=== PATIENT | female | born 1960 | race Hispanic/Latino ===

== ENCOUNTER 2019-11-11 21:35 | Inpatient (IN) | payer MEDICAID, OTHER ==
[2019-11-11] MEDS ORDERED: ACETAMINOPHEN 325 MG TAB PO PRN (21:54)
[2019-11-11] MEDS ORDERED: SODIUM CHLORIDE 0.9% 1000 ML 1,000 ML IV ONE ×2 (22:09)
[2019-11-11] MEDS: cefTRIAXone/NS 2 GM/100 ML 2 GM/100 ML BAG IV SCH (22:10)
[2019-11-11] MEDS ORDERED: SODIUM CHLORIDE 0.9% 1000 ML 1,000 ML ONE (22:12)
--- NOTE | 2019-11-11 22:21 | Emergency Department Report ---
ED Fever HPI - General Chief Complaint: Fever Stated Complaint: PAIN PUI?: Yes Time Seen by Provider: 11/11/19 21:53 Source: patient Exam Limitations: no limitations - History of Present Illness Initial Comments: CC: "I just didn't feel good." HPI: This is a 59 yo female with history of polysubstance abuse including IV drug use presemts with fever and malaise for several weeks. She denies headache, sore throat, chest pain, back pain and abdominal pain. No shortness of breath. She arrived via EMS with high fever and rapid heart rate. Gradual onset of symptoms. No precipitating or alleviating factors. She denies any pain or injury. When asked specifically what type of drugs she uses, she says "everything". 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 Associated Symptoms: other (foot ulcer, malaise) ED Review of Systems ROS: Stated complaint: PAIN Other details as noted in HPI Comment: All other systems reviewed and negative Constitutional: fever, malaise Respiratory: denies: cough, shortness of breath Gastrointestinal: denies: abdominal pain, nausea, vomiting Skin: rash, lesions ED Past Medical Hx - Past Medical History Previous Medical History?: No - Social History Smoking Status: Current Every Day Smoker ED Physical Exam - General Limitations: Other General appearance: alert, in no apparent distress, other (appears frail, chronically) - Head Head exam: Present: atraumatic, normocephalic - Eye Eye exam: Present: normal appearance - ENT ENT exam: Present: mucous membranes dry, other (no oropharyngeal lesions) - Neck Neck exam: Present: normal inspection, full ROM. Absent: tenderness, meningismus - Respiratory Respiratory exam: Present: normal lung sounds bilaterally. Absent: respiratory distress, wheezes, rales, rhonchi - Cardiovascular Cardiovascular Exam: Present: normal rhythm, tachycardia, normal heart sounds. Absent: systolic murmur, diastolic murmur, rubs, gallop - GI/Abdominal GI/Abdominal exam: Present: soft. Absent: distended, tenderness, guarding, rebound - Extremities Exam Extremities exam: Present: other (healed 2 cm foot ulcer at first MTP) - Neurological Exam Neurological exam: Present: alert, oriented X3 - Psychiatric Psychiatric exam: Present: normal affect, normal mood - Skin Skin exam: Present: warm, dry, pallor, ecchymosis (multiple ecchymosis lower legs). Absent: rash ED Course Vital Signs 11/11/19 11/11/19 11/12/19 21:48 21:57 00:16 Temperature 103 F H 103 F H Pulse Rate 133 H 115 H Respiratory 24 24 Rate Blood Pressure Blood Pressure 112/55 100/55 [Right] O2 Sat by Pulse 91 98 98 Oximetry 11/12/19 00:24 Temperature 103 F H Pulse Rate 115 H Respiratory 24 Rate Blood Pressure 105/55 Blood Pressure [Right] O2 Sat by Pulse 98 Oximetry ED Medical Decision Making - Lab Data Result diagrams: 11/11/19 22:46 11/11/19 22:46 - Radiology Data Radiology results: report reviewed Chest radiograph: No acute findings - Medical Decision Making Ms. Kerr presents with fever. Sirs on presentation. Sepsis protocol initiated. Work-up reveals pancytopenia. Differential diagnosis include: COVID-19, aplastic anemia, lymphoma, MDS, HIV, hepatitis, vitamin deficiency With elevated lactic acidosis, bacteremia/sepsis is a consideration. Urinalysis chest radiograph without obvious infection. UDS positive for amphetamine and opiates. Due to chronicity, I suspect patient has hematological disorder versus viral infection. She states that she has had fever malaise for several weeks. Admitted to the hospitalist service for further treatment and evaluation Critical care attestation.: If time is entered above; I have spent that time in minutes in the direct care of this critically ill patient, excluding procedure time. ED Disposition Clinical Impression: SIRS (systemic inflammatory response syndrome), Pancytopenia, Polysubstance abuse Disposition: OP ADMIT IP TO THIS HOSP Is pt being admited?: Yes Does the pt Need Aspirin: No Condition: Stable
--- NOTE | 2019-11-11 22:27 | XRay Report ---
CHEST 1 VIEW INDICATION / CLINICAL INFORMATION: high fever body aches. COMPARISON: None available. FINDINGS: SUPPORT DEVICES: None. HEART / MEDIASTINUM: Cardiac silhouette size is normal. Pacemaker is present. LUNGS / PLEURA: Calcified pleural plaque is projecting within the left midlung. The lungs are hyperin flated but I do not see any acute pulmonary or pleural disease. No pneumothorax. ADDITIONAL FINDINGS: No significant additional findings. IMPRESSION: 1. No acute pulmonary or pleural disease. Signer Name: Maricarmen Walters MD Signed: 11/11/2019 10:23 PM Workstation Name: [id number]
[2019-11-11] MEDS ORDERED: SODIUM CHLORIDE 0.9% 1000 ML IV SOLN IV ONE (22:47)
[2019-11-11] MEDS: AZITHROMYCIN 500 MG in SODIUM CHLORIDE 0.9% 250ML 250 ML IV SCH (22:47)
--- NOTE | 2019-11-11 22:58 | XRay Report ---
EXAMINATION: Right foot radiograph, 2 views CLINICAL INFORMATION: Foot ulcers at the base of the first digit COMPARISON: None. FINDINGS: Evaluation is limited due to limited patient positioning. No acute bony fracture or destruc tive bony change is identified. There is probable mild soft tissue swelling of the first digit. No so ft tissue gas can be clearly identified. The bony structures appear diffusely demineralized. Signer Name: Kimmy Mcdaniels MD Signed: 11/11/2019 10:54 PM Workstation Name: [id number]
[2019-11-11 23:28] LABS: Basophils % (Auto) 0.2 % (0.0-1.8); Hematocrit 20.3 % (30.3-42.9); Hemoglobin 6.8 gm/dl (10.1-14.3); Lymphocytes # (Auto) 0.2 K/mm3 (1.2-5.4); Lymphocytes % (Auto) 4.3 % (13.4-35.0); Mean Corpuscular HGB Conc 33 % (30-34); Mean Corpuscular Volume 81 fl (79-97); Monocytes # (Auto) 0.2 K/mm3 (0.0-0.8); Red Cell Distribution Width 16.9 % (13.2-15.2)
[2019-11-11 23:29] LABS: Platelet Count 52 K/mm3 (140-440)
[2019-11-11 23:31] LABS: Alanine Aminotransferase 14 units/L (7-56); Albumin 2.3 g/dL (3.9-5); Blood Urea Nitrogen 12 mg/dL (7-17); Hemolysis Index 4
[2019-11-11 23:32] LABS: BUN/Creatinine Ratio 17
[2019-11-11 23:38] LABS: INR 1.53 (0.87-1.13)
[2019-11-12] MEDS ORDERED: IBUPROFEN 800 MG TAB PO ONE (00:17)
[2019-11-12 00:47] LABS: Bilirubin,Urine NEG (Negative); Blood,Urine MOD (Negative); Color,Urine Yellow (Yellow); Protein,Urine <15 mg/dL mg/dL (Negative)
[2019-11-12 00:56] LABS: Amphetamine Screen,Urine PRESUMPTIVE POSITIVE; Benzodiazepines Screen,Urine PRESUMPTIVE NEGATIVE; Cannabinoid Screen,Urine PRESUMPTIVE NEGATIVE; Cocaine Screen,Urine PRESUMPTIVE NEGATIVE; Methadone Screen,Urine PRESUMPTIVE NEGATIVE; Opiate Screen,Urine PRESUMPTIVE POSITIVE
[2019-11-12 01:08] LABS: C-Reactive Protein 9.6 mg/dL (0.00-1.30)
[2019-11-12] MEDS ORDERED: POTASSIUM CHLORIDE ER 20 MEQ TAB PO ONE ×2 (02:05→02:19)
[2019-11-12] MEDS ORDERED: LORazepam 2 MG/ML VIAL IV ONE (02:11)
[2019-11-12] MEDS ORDERED: POTASSIUM CHLORIDE 10 MEQ 10 MEQ/100 ML BAG IV ONE (02:15)
[2019-11-12] MEDS: SODIUM CHLORIDE 0.9% 1000 ML 1,000 ML IV SCH ×2 (02:44→06:47)
--- NOTE | 2019-11-12 05:26 | History and Physical Report ---
History of Present Illness Date of examination: 11/12/19 Date of admission: 11/12/19 00:51 Chief complaint: FEVER , TACYCARDIA AND MALAISE History of present illness: 59 year old female known to be abusing multiple recreational drugs presenting with fever, tacycardia and malaise for several weeks. There is no shortness of breath, chest pain, nausea and vomiting or body ache. Past History Past Medical History: other (POLY SUBSTANCE ABUSE. ) Past Surgical History: No surgical history Social history: smoking, IV drug use Family history: no significant family history Medications and Allergies Allergies Allergy/AdvReac Type Severity Reaction Status Date / Time Penicillins Allergy Anaphylaxis Verified 11/11/19 22:07 Active Meds: Active Medications Acetaminophen (Tylenol) 650 mg PO Q4H PRN PRN Reason: Fever >101 Ceftriaxone Sodium (Rocephin/Ns 2 Gm/100 Ml) 2 gm in 100 mls @ 200 mls/hr IV Q24HR HUSSEIN; Protocol Last Admin: 11/11/19 22:10 Dose: 200 mls/hr Documented by: Azithromycin 500 mg/ Sodium (Chloride) 250 mls @ 250 mls/hr IV Q24HR HUSSEIN; Protocol Last Admin: 11/11/19 22:47 Dose: 250 mls/hr Documented by: Sodium Chloride (Nacl 0.9% 1000 Ml) 1,000 mls @ 125 mls/hr IV DIRECT HUSSEIN Last Admin: 11/12/19 02:44 Dose: 125 mls/hr Documented by: Lorazepam (Ativan) 1 mg IV Q4H PRN PRN Reason: Anxiety Review of Systems Constitutional: fever, chills, malaise, no weight loss, no weight gain, no sweats, no night sweats, no anorexia, no weakness Eyes: bilateral: other (NO BILATERAL EYE SYMPTOMS) Ears, nose, mouth and throat: no ear pain, no nose pain, no nasal congestion, no nasal discharge, no sinus pressure, no dental pain, no mouth pain, no dysphagia, no hoarseness, no sore throat, no headache, no vertigo Breasts: deferred Cardiovascular: rapid/irregular heart beat, no chest pain, no edema, no syncope, no lightheadedness, no shortness of breath, no high blood pressure Respiratory: no cough, no cough with sputum, no excessive sputum, no hemoptysis, no shortness of breath, no congestion, no wheezing, no pleurisy Gastrointestinal: no abdominal pain, no nausea, no vomiting, no diarrhea, no constipation, no change in bowel habits, no hematemesis, no hematochezia, no loss of appetite, no early satiety, no heartburn, no indigestion Genitourinary Female: no pelvic pain, no flank pain, no menorrhagia, no incomplete emptying, no Menstruation: postmenopausal Rectal: no pain Musculoskeletal: no neck stiffness, no neck pain, no low back pain, no muscle weakness, no myalgias, no atrophy Integumentary: no rash, no pruritis, no redness, no sores, no wounds, no jaundice, no boils, no bullae, no lesions, no darkening of skin, no depigmentation, no acne, no dryness Neurological: no weakness, no parathesias, no numbness, no tingling, no seizures, no syncope, no tremors, no vertigo, no headaches, no migraines, no convulsions, no change in speech, no change in mentation, no confusion Psychiatric: no anxiety, no insomnia, no depression Endocrine: no cold intolerance, no heat intolerance, no polydipsia, no polyuria, no nocturia, no excessive sweating, no thyroid mass, no palpatations, no high blood sugars Hematologic/Lymphatic: no easy bruising, no easy bleeding Allergic/Immunologic: no anaphylaxis Exam - Constitutional Vitals: Temp Pulse Resp BP Pulse Ox 100.2 F H 93 H 24 83/44 95 11/12/19 02:33 11/12/19 04:10 11/12/19 03:40 11/12/19 03:40 11/12/19 04:10 General appearance: Present: no acute distress - EENT Eyes: Present: PERRL, EOM intact ENT: hearing intact, clear oral mucosa - Neck Neck: Present: supple, normal ROM. Absent: carotid bruits - Respiratory Respiratory effort: normal - Cardiovascular Rhythm: regular Heart Sounds: Present: S1 & S2. Absent: gallop, systolic murmur, diastolic murmur, click - Extremities Extremities: no ischemia, No edema Peripheral Pulses: within normal limits - Abdominal General gastrointestinal: Present: soft, non-tender, non-distended. Absent: tender, distended, rigid, hepatomegaly, splenomegaly, mass Female genitourinary: Present: deferred - Rectal Rectal Exam: deferred - Integumentary Integumentary: Present: clear, warm, dry. Absent: erythema, jaundice - Musculoskeletal Musculoskeletal: strength equal bilaterally - Psychiatric Psychiatric: appropriate mood/affect HEART Score - HEART Score Age: 45-65 Risk factors: No known risk factors Troponin: < normal limit - Critical Actions Critical Actions: 0-3 pts:0.9-1.7%risk of adverse cardiac event.Candidate for discharge Results - Labs CBC & Chem 7: 11/11/19 22:46 11/11/19 22:46 Labs: Laboratory Last Values WBC 4.0 K/mm3 (4.5-11.0) L 11/11/19 22:46 RBC 2.50 M/mm3 (3.65-5.03) L 11/11/19 22:46 Hgb 6.8 gm/dl (10.1-14.3) L 11/11/19 22:46 Hct 20.3 % (30.3-42.9) L 11/11/19 22:46 MCV 81 fl (79-97) 11/11/19 22:46 MCH 27 pg (28-32) L 11/11/19 22:46 MCHC 33 % (30-34) 11/11/19 22:46 RDW 16.9 % (13.2-15.2) H 11/11/19 22:46 Plt Count 52 K/mm3 (140-440) L 11/11/19 22:46 Lymph % (Auto) 4.3 % (13.4-35.0) L 11/11/19 22:46 [place] % (Auto) 6.0 % (0.0-7.3) 11/11/19 22:46 Eos % (Auto) Health Underwriter 11/11/19 22:46 Baso % (Auto) 0.2 % (0.0-1.8) 11/11/19 22:46 Lymph # 0.2 K/mm3 (1.2-5.4) L 11/11/19 22:46 [place] # 0.2 K/mm3 (0.0-0.8) 11/11/19 22:46 Eos # 0.0 K/mm3 (0.0-0.4) 11/11/19 22:46 Baso # 0.0 K/mm3 (0.0-0.1) 11/11/19 22:46 Seg Neutrophils % 89.2 % (40.0-70.0) H 11/11/19 22:46 Seg Neutrophils # 3.6 K/mm3 (1.8-7.7) 11/11/19 22:46 PT 18.7 Sec. (12.2-14.9) H 11/11/19 22:46 INR 1.53 (0.87-1.13) H 11/11/19 22:46 D-Dimer 6966.37 ng/mlDDU (0-234) H 11/11/19 22:46 Sodium 133 mmol/L (137-145) L 11/11/19 22:46 Potassium 3.2 mmol/L (3.6-5.0) L 11/11/19 22:46 Chloride 94.6 mmol/L (98-107) L 11/11/19 22:46 Carbon Dioxide 24 mmol/L (22-30) 11/11/19 22:46 Anion Gap 18 mmol/L 11/11/19 22:46 BUN 12 mg/dL (7-17) 11/11/19 22:46 Creatinine 0.7 mg/dL (0.6-1.2) 11/11/19 22:46 Estimated GFR > 60 ml/min 11/11/19 22:46 BUN/Creatinine Ratio 17 % 11/11/19 22:46 Glucose 163 mg/dL (65-100) H 11/11/19 22:46 Glucose 164 mg/dL (65-100) H 11/11/19 22:46 Lactic Acid 1.40 mmol/L (0.7-2.0) 11/12/19 03:34 Calcium 7.0 mg/dL (8.4-10.2) L 11/11/19 22:46 Ferritin 272.3 ng/mL (10.0-200.0) H 11/11/19 22:46 Total Bilirubin 0.60 mg/dL (0.1-1.2) 11/11/19 22:46 AST 28 units/L (5-40) 11/11/19 22:46 ALT 14 units/L (7-56) 11/11/19 22:46 Alkaline Phosphatase 143 units/L (35-129) H 11/11/19 22:46 Lactate Dehydrogenase 193 units/L (91-180) H 11/11/19 22:46 C-Reactive Protein 9.60 mg/dL (0.00-1.30) H 11/11/19 22:46 Total Protein 5.8 g/dL (6.3-8.2) L 11/11/19 22:46 Albumin 2.3 g/dL (3.9-5) L 11/11/19 22:46 Albumin/Globulin Ratio 0.7 % 11/11/19 22:46 Urine Color Yellow (Yellow) 11/12/19 00:23 Urine Turbidity Clear (Clear) 11/12/19 00:23 Urine pH 6.0 (5.0-7.0) 11/12/19 00:23 Ur Specific [place] 1.006 (1.003-1.030) 11/12/19 00:23 Urine Protein <15 mg/dl mg/dL (Negative) 11/12/19 00:23 Urine Glucose (UA) Neg mg/dL (Negative) 11/12/19 00:23 Urine Ketones Neg mg/dL (Negative) 11/12/19 00:23 Urine Blood Mod (Negative) 11/12/19 00:23 Urine Nitrite Neg (Negative) 11/12/19 00:23 Urine Bilirubin Neg (Negative) 11/12/19 00:23 Urine Urobilinogen 2.0 mg/dL (<2.0) 11/12/19 00:23 Ur Leukocyte Esterase Tr (Negative) 11/12/19 00:23 Urine WBC (Auto) 4.0 /HPF (0.0-6.0) 11/12/19 00:23 Urine RBC (Auto) 3.0 /HPF (0.0-6.0) 11/12/19 00:23 U Epithel Cells (Auto) 6.0 /HPF (0-13.0) 11/12/19 00:23 Urine Opiates Screen Presumptive positive 11/12/19 00:23 Urine Methadone Screen Presumptive negative 11/12/19 00:23 Ur Barbiturates Screen Presumptive negative 11/12/19 00:23 Ur Phencyclidine Scrn Presumptive negative 11/12/19 00:23 Ur Amphetamines Screen Presumptive positive 11/12/19 00:23 U Benzodiazepines Scrn Presumptive negative 11/12/19 00:23 Urine Cocaine Screen Presumptive negative 11/12/19 00:23 U Marijuana (THC) Screen Presumptive negative 11/12/19 00:23 Drugs of Abuse Note Disclamer 11/12/19 00:23 Microbiology: Microbiology 11/11/19 22:38 Peripheral/Venous Blood Culture - Preliminary Culture in Progress 11/11/19 22:46 Peripheral/Venous Blood Culture - Preliminary Culture in Progress Gonzales/IV: IV Catheter Type [Right INT / Saline Lock Antecubital] IV Catheter Type [Left Wrist] INT / Saline Lock Assessment and Plan - Patient Problems (1) Hypokalemia Current Visit: Yes Status: Acute Plan to address problem: 1. KCL REPLACEMENT (PO AND I.V) 2. BMP FOR MORNITORING (2) Anemia Current Visit: Yes Status: Acute Plan to address problem: 1. STOOL HEMEOCCULT TEST 2. SERIAL HEMOGLOBIN AND HEMATOCRIT 3 . TYPE AND SCREEN PRBC 4. TRANSFUSION OF PRBC (3) Polysubstance abuse Current Visit: Yes Status: Acute Plan to address problem: I.V ATIVAN PRN ANXIETY (4) SIRS (systemic inflammatory response syndrome) Current Visit: Yes Status: Acute Plan to address problem: 1. I.V N/SALINE FLUID 2. I.V ZITHROMAX AND I.V ROCEPHIN ANTIBIOTICS 3. TYLENOL FOR FEVER 4 COVID -19 TEST 5. CONTACT AND DROPLET ISOLATION
[2019-11-12] MEDS ORDERED: SODIUM CHLORIDE 0.9% 500 ML 500 ML IV ONE (05:47)
[2019-11-12 06:05] LABS: Hematocrit 20.2 % (30.3-42.9); Hemoglobin 6.6 gm/dl (10.1-14.3); Mean Corpuscular HGB Conc 33 % (30-34); Mean Corpuscular Volume 83 fl (79-97); Platelet Count 49 K/mm3 (140-440); Red Blood Count 2.44 M/mm3 (3.65-5.03); Red Cell Distribution Width 16.8 % (13.2-15.2)
[2019-11-12 07:31] LABS: Hematocrit 17.7 % (30.3-42.9)
[2019-11-12] MEDS: ACETAMINOPHEN 325 MG TAB PO PRN (08:42)
[2019-11-12] MEDS: cefTRIAXone/NS 2 GM/100 ML 2 GM/100 ML BAG IV SCH (09:48)
[2019-11-12] MEDS: AZITHROMYCIN 500 MG in SODIUM CHLORIDE 0.9% 250ML 250 ML IV SCH (18:30)
[2019-11-12 19:49] LABS: Hematocrit 26.6 % (30.3-42.9); Hemoglobin 8.9 gm/dl (10.1-14.3)
[2019-11-12] MEDS: LORazepam 2 MG/ML VIAL IV PRN (23:32)
[2019-11-13] MEDS ORDERED: MORPHINE 2 MG/1 ML INJ IV ONE (00:20)
[2019-11-13 00:51] LABS: Basophils % (Auto) 0.1 % (0.0-1.8); Eosinophils % (Auto) 1.3 % (0.0-4.3); Hematocrit 26.9 % (30.3-42.9); Hemoglobin 9.2 gm/dl (10.1-14.3); Lymphocytes # (Auto) 0.4 K/mm3 (1.2-5.4); Lymphocytes % (Auto) 11.6 % (13.4-35.0); Mean Corpuscular HGB Conc 34 % (30-34); Mean Corpuscular Volume 85 fl (79-97); Monocytes # (Auto) 0.1 K/mm3 (0.0-0.8); Monocytes % (Auto) 1.6 % (0.0-7.3); Platelet Count 60 K/mm3 (140-440); Red Blood Count 3.19 M/mm3 (3.65-5.03); Red Cell Distribution Width 16.1 % (13.2-15.2)
[2019-11-13 01:15] LABS: Alanine Aminotransferase 14 units/L (7-56); Albumin 2.3 g/dL (3.9-5); Blood Urea Nitrogen 13 mg/dL (7-17); Calcium 6.9 mg/dL (8.4-10.2); Hemolysis Index 15
[2019-11-13 01:19] LABS: BUN/Creatinine Ratio 22
[2019-11-13] MEDS ORDERED: LORazepam 2 MG/ML VIAL IV ONE ×2 (02:10→02:30)
[2019-11-13] MEDS: ACETAMINOPHEN 325 MG TAB PO PRN ×2 (02:33→20:50)
[2019-11-13] MEDS ORDERED: PIPERACIL/TAZOBACTA 4.5/NS 100 4.5 GM/100 ML VIAL IV SCH (06:00)
[2019-11-13] MEDS: cefTRIAXone/NS 2 GM/100 ML 2 GM/100 ML BAG IV SCH (10:17)
[2019-11-13] MEDS: AZITHROMYCIN 250 MG TAB PO SCH (10:18)
--- NOTE | 2019-11-13 16:09 | Progress Note ---
Assessment and Plan Assessment and plan: 59-year-old female with a medical history of drug abuse presenting to the hospital with chief complaint of fever and malaise for about 3 to 4 weeks prior to presentation.In the ED, her labs showed pancytopenia with Hb 6. She was admitted to the hospital and was transfused. 11/12. Patient seen and examined at bedside this morning. Had 103F last night. She is on ceftriaxone - will switch to cefepime for broader coverage. WIll send procalcitonin, ESR, CRP, hep panel, TSH, Vitamin B12, folate, HIV etc - Patient Problems (1) Anemia Current Visit: Yes Status: Acute Plan to address problem: Now status post transfusion of PRBCs Continue to monitor hemoglobin No evidence of GI bleed. (2) Hypokalemia Current Visit: Yes Status: Acute (3) Pancytopenia Current Visit: Yes Status: Acute Plan to address problem: Possible multiple etiologies-need to rule out any ongoing infection-hepatitis panel, COVID-19 test, HIV ordered Continue to monitor blood counts (4) Polysubstance abuse Current Visit: Yes Status: Acute Plan to address problem: Drug abuse counseling Needs to have rehab program set up (5) SIRS (systemic inflammatory response syndrome) Current Visit: Yes Status: Acute Plan to address problem: Patient had a temperature 103 F overnight. No evidence of infection seen at this time Urinalysis and chest x-ray - negative for any infection Ultrasound abdomen ordered Repeat chest x-ray today. Broadened antibiotics to cefepime and vancomycin (6) D-dimer, elevated Current Visit: Yes Status: Acute Plan to address problem: Ultrasound lower extremity Doppler ordered (7) DVT prophylaxis Current Visit: Yes Status: Acute Plan to address problem: Lovenox (8) Advance care planning Current Visit: Yes Status: Acute Plan to address problem: Patient is wheelchair-bound and will need placement for patient's family can take on discharge. History Interval history: See assessment and plan Hospitalist Physical - Constitutional Vitals: Temp Pulse Resp BP Pulse Ox 99.8 F H 95 H 20 90/35 96 11/13/19 06:37 11/13/19 06:37 11/13/19 06:37 11/13/19 06:37 11/13/19 06:37 General appearance: Present: no acute distress - EENT Eyes: Present: PERRL - Neck Neck: Present: supple - Respiratory Respiratory: bilateral: CTA - Cardiovascular Rhythm: regular Heart Sounds: Present: S1 & S2 - Extremities Extremities: No edema - Abdominal General gastrointestinal: soft, non-tender, non-distended - Psychiatric Psychiatric: appropriate mood/affect - Neurologic Neurologic: CNII-XII intact HEART Score - HEART Score Age: 45-65 Risk factors: No known risk factors Troponin: < normal limit - Critical Actions Critical Actions: 0-3 pts:0.9-1.7%risk of adverse cardiac event.Candidate for discharge Results - Labs CBC & Chem 7: 11/13/19 00:31 11/13/19 00: Labs: Laboratory Last Values WBC 3.3 K/mm3 (4.5-11.0) L 11/13/19: RBC 3.19 M/mm3 (3.65-5.03) L 11/13/19: Hgb 9.2 gm/dl (10.1-14.3) L 11/13/19: Hct 26.9 % (30.3-42.9) L 11/13/19: MCV 85 fl (79-97) 11/13/19: MCH 29 pg (28-32) 11/13/19 00: MCHC 34 % (30-34) 11/13/19: RDW 16.1 % (13.2-15.2) H 11/13/19 00: Plt Count 60 K/mm3 (140-440) L 11/13/19 00: Lymph % (Auto) 11.6 % (13.4-35.0) L 11/13/19: [place] % (Auto) 1.6 % (0.0-7.3) 11/13/19 00: Eos % (Auto) 1.3 % (0.0-4.3) 11/13/19 00: Baso % (Auto) 0.1 % (0.0-1.8) 11/13/19: Lymph # 0.4 K/mm3 (1.2-5.4) L 11/13/19 00: [place] # 0.1 K/mm3 (0.0-0.8) 11/13/19 00: Eos # 0.0 K/mm3 (0.0-0.4) 11/13/19 00:31 Baso # 0.0 K/mm3 (0.0-0.1) 11/13/19 00:31 Seg Neutrophils % 85.4 % (40.0-70.0) H 11/13/19 00:31 Seg Neutrophils # 2.8 K/mm3 (1.8-7.7) 11/13/19 00:31 PT 18.7 Sec. (12.2-14.9) H 11/11/19 22:46 INR 1.53 (0.87-1.13) H 11/11/19 22:46 D-Dimer 6966.37 ng/mlDDU (0-234) H 11/11/19 22:46 Sodium 139 mmol/L (137-145) 11/13/19 00:31 Potassium 3.7 mmol/L (3.6-5.0) 11/13/19 00:31 Chloride 104.9 mmol/L (98-107) 11/13/19 00:31 Carbon Dioxide 21 mmol/L (22-30) L 11/13/19 00:31 Anion Gap 17 mmol/L 11/13/19 00:31 BUN 13 mg/dL (7-17) 11/13/19 00:31 Creatinine 0.6 mg/dL (0.6-1.2) 11/13/19 00:31 Estimated GFR > 60 ml/min 11/13/19 00:31 BUN/Creatinine Ratio 22 % 11/13/19 00:31 Glucose 89 mg/dL (65-100) 11/13/19 00:31 Lactic Acid 1.40 mmol/L (0.7-2.0) 11/12/19 03:34 Calcium 6.9 mg/dL (8.4-10.2) L 11/13/19 00:31 Ferritin 272.3 ng/mL (10.0-200.0) H 11/11/19 22:46 Total Bilirubin 0.90 mg/dL (0.1-1.2) 11/13/19 00:31 AST 26 units/L (5-40) 11/13/19 00:31 ALT 14 units/L (7-56) 11/13/19 00:31 Alkaline Phosphatase 139 units/L (35-129) H 11/13/19 00:31 Lactate Dehydrogenase 193 units/L (91-180) H 11/11/19 22:46 C-Reactive Protein 9.60 mg/dL (0.00-1.30) H 11/11/19 22:46 Total Protein 6.3 g/dL (6.3-8.2) 11/13/19 00:31 Albumin 2.3 g/dL (3.9-5) L 11/13/19 00:31 Albumin/Globulin Ratio 0.6 % 11/13/19 00:31 Procalcitonin 7.39 ng/mL (<0.15) 11/13/19 00:31 Urine Color Yellow (Yellow) 11/12/19 00:23 Urine Turbidity Clear (Clear) 11/12/19 00:23 Urine pH 6.0 (5.0-7.0) 11/12/19 00:23 Ur Specific [place] 1.006 (1.003-1.030) 11/12/19 00:23 Urine Protein <15 mg/dl mg/dL (Negative) 11/12/19 00:23 Urine Glucose (UA) Neg mg/dL (Negative) 11/12/19 00:23 Urine Ketones Neg mg/dL (Negative) 11/12/19 00:23 Urine Blood Mod (Negative) 11/12/19 00:23 Urine Nitrite Neg (Negative) 11/12/19 00:23 Urine Bilirubin Neg (Negative) 11/12/19 00:23 Urine Urobilinogen 2.0 mg/dL (<2.0) 11/12/19 00:23 Ur Leukocyte Esterase Tr (Negative) 11/12/19 00:23 Urine WBC (Auto) 4.0 /HPF (0.0-6.0) 11/12/19 00:23 Urine RBC (Auto) 3.0 /HPF (0.0-6.0) 11/12/19 00:23 U Epithel Cells (Auto) 6.0 /HPF (0-13.0) 11/12/19 00:23 Urine Opiates Screen Presumptive positive 11/12/19 00:23 Urine Methadone Screen Presumptive negative 11/12/19 00:23 Ur Barbiturates Screen Presumptive negative 11/12/19 00:23 Ur Phencyclidine Scrn Presumptive negative 11/12/19 00:23 Ur Amphetamines Screen Presumptive positive 08/27/20 00:23 U Benzodiazepines Scrn Presumptive negative 11/12/19 00:23 Urine Cocaine Screen Presumptive negative 11/12/19 00:23 U Marijuana (THC) Screen Presumptive negative 11/12/19 00:23 Drugs of Abuse Note Disclamer 11/12/19 00:23 Blood Type O POSITIVE 11/12/19 06:43 Antibody Screen Negative 11/12/19 06:43 Crossmatch See Detail 11/12/19 06:43 Microbiology: Microbiology 11/11/19 22:38 Peripheral/Venous Blood Culture - Preliminary NO GROWTH AFTER 24 HOURS 11/11/19 22:46 Peripheral/Venous Blood Culture - Preliminary NO GROWTH AFTER 24 HOURS Gonzales/IV: Voiding Method External Female Catheter IV Catheter Type [Right Upper INT / Saline Lock arm] IV Catheter Type [Right INT / Saline Lock Antecubital] IV Catheter Type [Left Wrist] INT / Saline Lock Active Medications - Current Medications Current Medications: Generic Name Dose Route Start Last Admin Trade Name Freq PRN Reason Stop Dose Admin Acetaminophen 650 mg 11/12/19 01:56 11/13/19 02:33 Tylenol PO 650 mg Q4H PRN Administration Fever >101 Azithromycin 500 mg 11/13/19 10:00 11/13/19 10:18 Zithromax PO 11/15/19 10:01 500 mg QDAY HUSSEIN Administration Ceftriaxone Sodium 2 gm in 100 mls @ 200 mls/hr 11/11/19 22:00 11/13/19 10:17 Rocephin/Ns 2 Gm/100 Ml IV 200 mls/hr Q24HR HUSSEIN Administration Protocol Sodium Chloride 1,000 mls @ 125 mls/hr 11/12/19 02:45 11/12/19 14:50 Nacl 0.9% 1000 Ml IV Infused DIRECT HUSSEIN Infusion Lorazepam 1 mg 11/12/19 01:53 11/12/19 23:32 Ativan IV 1 mg Q4H PRN Administration Anxiety Nutrition/Malnutrition Assess - Dietary Evaluation Nutrition/Malnutrition Findings: Nutrition Notes Start: 11/12/19 10:55 Freq: Status: Active Protocol: Document 11/12/19 10:55 LP (Rec: 11/12/19 12:04 LP [id number]) Nutrition Notes Need for Assessment generated from: solutions 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 Spoke with RN on phone, pt ate breakfast but unsure of percentage. Unable to reach pt by phone Burn Absent Trauma Absent GI Symptoms None Food Allergy No Minimum of two criteria No #1 Nutrition Diagnosis Predicted suboptimal energy intake Etiology related to prior hx of polysubstance abuse As Evidenced by Signs and Symptoms admission diagnoses Is patient on ventilator? No Is Patient Ambulatory and/or Out of Bed No REE-(Coleman-St. Jeor-confined to bed) [phone] Calculation Used for Recommendations Coleman-St Jeor Additional Notes Protein Needs (1-1.2 g/kg 60-72g/day fluid 1ml/kcal Nutrition Intervention Change Diet Order: Continue current diet Goal #1 Po intake to meet at least 75% of energy and protein needs. Anticipated Discharge Needs: Unable to identify at this time Follow-Up By: 11/17/19 Additional Comments Follow up for intakes
[2019-11-13] MEDS ORDERED: SODIUM CHLORIDE 0.9% 1000 ML 1,000 ML IV SCH (16:30)
[2019-11-13] MEDS ORDERED: VANCOMYCIN 1,250 MG in SODIUM CHLORIDE 0.9% 250ML 250 ML IV ONE (17:00)
[2019-11-13] MEDS ORDERED: VANCOMYCIN PHARMACY TO DOSE IV SCH (17:00)
--- NOTE | 2019-11-13 18:08 | XRay Report ---
CHEST 1 VIEW INDICATION / CLINICAL INFORMATION: pneumonia. COMPARISON: Radiograph dated 11/11/2019. FINDINGS: SUPPORT DEVICES: Stable, satisfactory device positioning. HEART / MEDIASTINUM: Stable. LUNGS / PLEURA: There is a sizable region of airspace opacification within the right midlung. Stable calcified left pleural plaque. No pneumothorax. ADDITIONAL FINDINGS: No significant additional findings. IMPRESSION: Airspace consolidation within the right midlung is concerning for pneumonia. Signer Name: Henrik Buitrago MD Signed: 11/13/2019 6:03 PM Workstation Name: [id number]
[2019-11-13] MEDS: LORazepam 2 MG/ML VIAL IV PRN (19:25)
[2019-11-13] MEDS: CEFEPIME/NS 2 GM/100 ML 2 GM/100 ML BAG IV SCH (22:23)
[2019-11-14] MEDS: LORazepam 2 MG/ML VIAL IV PRN ×3 (03:56→22:28)
[2019-11-14] MEDS: VANCOMYCIN/NS 1 GM/250 ML 1 GM/250 ML BAG IV SCH ×2 (04:15→17:21)
[2019-11-14] MEDS ORDERED: SODIUM CHLORIDE 0.9% 250ML 250 ML ONE (04:44)
[2019-11-14] MEDS ORDERED: SODIUM CHLORIDE 0.9% 250ML 250 ML IV ONE (04:45)
[2019-11-14] MEDS ORDERED: METOPROLOL TARTRATE 5 MG/5 ML INJ IV ONE (05:31)
[2019-11-14] MEDS ORDERED: LORazepam 2 MG/ML VIAL IV ONE (05:52)
[2019-11-14] MEDS ORDERED: dilTIAZem 25 MG/5 ML INJ IV ONE (05:53)
--- NOTE | 2019-11-14 06:47 | Event Note ---
Date: 11/14/19 Patient found to be in A. fib with RVR. Transferred to the [facility] and placed on Cardizem drip. We will place a consult to cardiology for evaluation and recommendation.
[2019-11-14] MEDS ORDERED: dilTIAZem/D5W 100 MG/100 ML BAG IV SCH (07:00)
[2019-11-14] MEDS: ACETAMINOPHEN 325 MG TAB PO PRN (08:27)
[2019-11-14] MEDS: CEFEPIME/NS 2 GM/100 ML 2 GM/100 ML BAG IV SCH ×3 (08:30→22:28)
--- NOTE | 2019-11-14 08:52 | Consultation ---
History of Present Illness Consult date: 11/14/19 Requesting physician: MULU BOUDREAUX Consult reason: atrial fibrillation (AF RVR) History of present illness: Pt is a 59 y.o. female, previously unknown to our practice, who presented with complaints of fatigue/generalized weakness x several weeks. Pt was found to be pancytopenic upon arrival with Hgb ~ 6 and was subsequently transfused. Of note, pt has a hx of polysubstance abuse. Also of note, pt is febrile but refuses COVID-19 testing. Cardiology has been consulted for new onset AF with RVR. Pt was found to be in AF 130-150s overnight and was started on a Cardizem drip, along with IV digoxin. Pt denies any cardiac complaints. Echo 11/2016 - EF 60%, mild-mod AI. Past History Past Surgical History: No surgical history Social history: smoking, IV drug use Medications and Allergies Allergies Allergy/AdvReac Type Severity Reaction Status Date / Time Penicillins Allergy Anaphylaxis Verified 11/11/19 22:07 Active Meds: Active Medications Acetaminophen (Tylenol) 650 mg PO Q4H PRN PRN Reason: Fever >101 Last Admin: 11/14/19 08:27 Dose: 650 mg Documented by: Azithromycin (Zithromax) 500 mg PO QDAY HUSSEIN Stop: 11/15/19 10:01 Last Admin: 11/13/19 10:18 Dose: 500 mg Documented by: Digoxin (Lanoxin) 0.25 mg IV ONCE HUSSEIN Stop: 11/14/19 10:00 Enoxaparin Sodium (Enoxaparin) 60 mg 1 mg/kg (60 mg) SUB-Q Q12HR [facility] Sodium Chloride (Nacl 0.9% 1000 Ml) 1,000 mls @ 125 mls/hr IV DIRECT HUSSEIN Last Infusion: 11/12/19 14:50 Dose: Infused Documented by: Cefepime HCl (Cefepime/Ns 2 Gm/100 Ml) 2 gm in 100 mls @ 200 mls/hr IV Q8HR [facility]; Protocol Last Admin: 11/14/19 08:30 Dose: Not Given Documented by: Vancomycin HCl (Vancomycin/Ns 1 Gm/250 Ml) 1 gm in 250 mls @ 166.667 mls/hr IV Q12H [facility] Last Admin: 11/14/19 04:15 Dose: 166.667 mls/hr Documented by: Diltiazem HCl (Cardizem/D5w 100mg/100ml) 100 mg in 100 mls @ 15 mls/hr IV TITR HUSSEIN; Protocol Last Admin: 11/14/19 07:45 Dose: 15 mg/hr, 15 mls/hr Documented by: Lorazepam (Ativan) 1 mg IV Q4H PRN PRN Reason: Anxiety Last Admin: 11/14/19 03:56 Dose: 1 mg Documented by: Review of Systems Constitutional: fever, fatigue, weakness, no chills, no sweats Ears, nose, mouth and throat: no nasal congestion, no sore throat Cardiovascular: no chest pain, no orthopnea, no palpitations, no edema, no syncope, no lightheadedness, no shortness of breath, no dyspnea on exertion, no paroxysmal nocturnal dyspnea, no claudication Respiratory: no cough, no shortness of breath, no dyspnea on exertion Gastrointestinal: no abdominal pain, no nausea, no vomiting, no diarrhea, no constipation Genitourinary Female: no pelvic pain, no flank pain, no dysuria Musculoskeletal: no neck stiffness, no neck pain, no myalgias Neurological: no head injury, no paralysis, no parathesias, no numbness, no tingling, no seizures, no syncope, no vertigo, no headaches Endocrine: no cold intolerance, no heat intolerance, no polyphagia, no polydipsi a Hematologic/Lymphatic: no easy bruising, no easy bleeding Allergic/Immunologic: no urticaria Physical Examination Last Vital Signs Temp 100 F H 11/14/19 12:00 Pulse 81 11/14/19 19:13 Resp 55 H 11/14/19 18:00 BP 94/49 11/14/19 18:00 Pulse Ox 96 11/14/19 20:35 Narrative exam: Exam deferred due to suspected COVID-19 infection (exposure reduction and PPE conservation). Recommendations have been provided based on chart review and provider discussions. 25 mins spent in discussions with pt/family via phone, chart review, plan formation, and consultation with referring provider. Results 11/14/19 10:14 11/14/19 10:14 - Imaging and Cardiology Echo: pending, report reviewed (11/2016 - EF 60%, mild-mod AI) EKG: report reviewed, image reviewed - EKG Interpretation EKG: no acute changes EKG interpretations - Telemetry EKG Rhythm: Atrial Fibrillation - EKG Supraventricular dysrhythmia: atrial fibrillation Assessment and Plan Obtain echo. BLE venous Dopplers pending. Recommend chest CTA. Pt weaned off Cardizem drip. Will hold off on initiation of AV semaj blocking agents for now given borderline BPs. Cont tele monitoring. Replete K. Pt seen in conjunction with Dr. ELBA Rueda, who agrees with the assessment and plan of care. - Patient Problems (1) Acute respiratory failure with hypoxia Current Visit: Yes Status: Acute (2) Atrial fibrillation with RVR Current Visit: Yes Status: Acute (3) Hypokalemia Current Visit: Yes Status: Acute (4) Anemia Current Visit: Yes Status: Acute (5) Pancytopenia Current Visit: Yes Status: Acute (6) D-dimer, elevated Current Visit: Yes Status: Acute (7) Polysubstance abuse Current Visit: Yes Status: Chronic
[2019-11-14] MEDS ORDERED: DIGOXIN 0.5 MG/2 ML INJ IV SCH (09:00)
[2019-11-14 09:30] LABS: ABG Base Excess -1.4 mmol/L (-2.0-3.0); ABG HCO3 20.1 mmol/L (20.0-26.0); ABG Methemoglobin 0.6 % (0.0-1.5); ABG Oxygen Saturation 88.1 % (95.0-99.0); ABG PCO2 23.6 mm Hg; ABG PH 7.548 pH Units (7.350-7.450); ABG PO2 48.1 mm Hg (80.0-90.0)
[2019-11-14] MEDS: AZITHROMYCIN 250 MG TAB PO SCH (09:34)
--- NOTE | 2019-11-14 09:49 | XRay Report ---
CHEST 1 VIEW 11/14/2019 8:37 AM INDICATION / CLINICAL INFORMATION: Pneumonia. COMPARISON: 11/13/2019 FINDINGS: SUPPORT DEVICES: Left subclavian pacemaker leads, unchanged HEART / MEDIASTINUM: No significant abnormality. LUNGS / PLEURA: Multifocal moderate bilateral airspace consolidation has worsened. No pneumothorax. ADDITIONAL FINDINGS: No significant additional findings. IMPRESSION: 1. Worsening bilateral multifocal pneumonia Signer Name: Michi Foreman MD Signed: 11/14/2019 9:44 AM Workstation Name: [id number]
[2019-11-14] MEDS ORDERED: ENOXAPARIN 60 MG/0.6 ML INJ SUB-Q SCH (10:00)
[2019-11-14 10:51] LABS: Hematocrit 25.5 % (30.3-42.9); Hemoglobin 8.6 gm/dl (10.1-14.3); Mean Corpuscular HGB Conc 34 % (30-34); Mean Corpuscular Volume 84 fl (79-97); Red Blood Count 3.04 M/mm3 (3.65-5.03); Red Cell Distribution Width 16.7 % (13.2-15.2)
[2019-11-14 10:59] LABS: Platelet Count 50 K/mm3 (140-440)
[2019-11-14 11:05] LABS: Eosinophils % (Auto) 0.1 % (0.0-4.3); Monocytes # (Auto) 0.7 K/mm3 (0.0-0.8); Monocytes % (Auto) 9.3 % (0.0-7.3)
[2019-11-14 11:12] LABS: Alanine Aminotransferase 10 units/L (7-56); Albumin 1.8 g/dL (3.9-5); Blood Urea Nitrogen 11 mg/dL (7-17); Calcium 6.6 mg/dL (8.4-10.2); Hemolysis Index 2
[2019-11-14 11:14] LABS: Bilirubin,Direct 0.2 mg/dL (0-0.2)
[2019-11-14 11:16] LABS: BUN/Creatinine Ratio 22
--- NOTE | 2019-11-14 11:42 | Progress Note ---
Assessment and Plan Assessment and plan: 59-year-old female with a medical history of drug abuse presenting to the hospital with chief complaint of fever and malaise for about 3 to 4 weeks prior to presentation. In the ED, her labs showed pancytopenia with Hb 6. She was admitted to the hospital and was transfused. 11/12. Patient seen and examined at bedside this morning. Had 103F last night. She is on ceftriaxone - will switch to cefepime and vancomycin for broader coverage. Will send procalcitonin, ESR, CRP, hep panel, TSH, Vitamin B12, folate, HIV etc. Patient refuses to have coronavirus test. 11/13. Overnight, patient had episode of atrial fibrillation with RVR with heart rate in the 150s up to 190s. Patient was started on Cardizem drip after giving metoprolol IV and transferred to the [facility]. I saw patient and examined at bedside today. Patient is tachypneic with respiratory rate in the 30s, tachycardic with heart rate in the 150s. She is on Cardizem drip 15mg/hr. Cardiology has been consulted this morning. Added digox in due to elevated heart rate. Stat chest x-ray ordered showed worsening bilateral pneumonia. Patient is currently on vancomycin, cefepime. Added azithromycin for now. ID has been consulted. Stat ABG ordered to evaluate respiratory status. Results still pending. Ultrasound of the lower extremities ordered yesterday for elevated d-dimer still pending at this time. Will give patient Lovenox 60 mg twice daily for now. CTA chest ordered to rule out possible PE. - Patient Problems (1) Anemia Current Visit: Yes Status: Acute Plan to address problem: Now status post transfusion of PRBCs Continue to monitor hemoglobin No evidence of GI bleed. (2) Hypokalemia Current Visit: Yes Status: Acute Plan to address problem: Continue to monitor potassium. Potassium supplements as ordered (3) Pancytopenia Current Visit: Yes Status: Acute Plan to address problem: Possible multiple etiologies-need to rule out any ongoing infection-hepatitis panel, COVID-19 test, HIV ordered Patient continues to refuse COVID-19 test. Continue to monitor blood counts (4) Polysubstance abuse Current Visit: Yes Status: Acute Plan to address problem: Drug abuse counseling Needs to have rehab program set up at discharge (5) SIRS (systemic inflammatory response syndrome) Current Visit: Yes Status: Acute Plan to address problem: Patient had a temperature 103 F 11/11. Urinalysis and chest x-ray - negative for any infection on admission Repeat chest x-ray showed worsening bilateral pneumonia Broadened antibiotics to cefepime, azithromycin and vancomycin COVID-19 test has been ordered patient continues to refuse. Started patient on dexamethasone 6 mg IV daily for now ID has been consulted (6) Atrial fibrillation Current Visit: Yes Status: Acute Plan to address problem: Patient developed rapid atrial fibrillation on 11/13 early a.m. with heart rate in 170s 190s Patient received metoprolol IV with no response and she was started on Cardizem drip Cardiology has been consulted. Echocardiogram has been ordered Patient heart rate still maintained in the 150s. Added digoxin (7) Acute hypoxemic respiratory failure Current Visit: Yes Status: Acute Plan to address problem: Likely from bilateral pneumonia-possible COVID-19. Patient continues to refuse COVID-19 test Patient started on dexamethasone 6 mg IV daily Patient is currently on broad-spectrum antibiotics-vancomycin, cefepime and azithromycin ID has been consulted ABG stat ordered this morning (8) D-dimer, elevated Current Visit: Yes Status: Acute Plan to address problem: Ultrasound lower extremity Doppler ordered results are pending Empirical treatment for possible PE with one time Lovenox for now CTA chest ordered (9) DVT prophylaxis Current Visit: Yes Status: Acute Plan to address problem: Lovenox (10) Advance care planning Current Visit: Yes Status: Acute Plan to address problem: Patient is wheelchair-bound and will need placement for patient's family can take on discharge. History Interval history: See assessment and plan Hospitalist Physical - Constitutional Vitals: Temp Pulse Resp BP Pulse Ox 98.5 F 156 H 26 H 99/52 99 11/14/19 03:56 11/14/19 10:31 11/14/19 10:31 11/14/19 10:31 11/14/19 10:31 General appearance: Present: no acute distress - EENT Eyes: Present: PERRL - Neck Neck: Present: supple - Respiratory Respiratory: bilateral: rales - Cardiovascular Heart rate: 150 Rhythm: irregularly irregular Heart Sounds: Present: S1 & S2 - Extremities Extremities: No edema - Abdominal General gastrointestinal: soft, non-tender, non-distended - Psychiatric Psychiatric: appropriate mood/affect - Neurologic Neurologic: CNII-XII intact HEART Score - HEART Score Age: 45-65 Risk factors: No known risk factors Troponin: < normal limit - Critical Actions Critical Actions: 0-3 pts:0.9-1.7%risk of adverse cardiac event.Candidate for discharge Results - Labs CBC & Chem 7: 11/14/19 10:14 11/14/19 10:14 Labs: Laboratory Last Values WBC 7.9 K/mm3 (4.5-11.0) 11/14/19 10:14 RBC 3.04 M/mm3 (3.65-5.03) L 11/14/19 10:14 Hgb 8.6 gm/dl (10.1-14.3) L 11/14/19 10:14 Hct 25.5 % (30.3-42.9) L 11/14/19 10:14 MCV 84 fl (79-97) 11/14/19 10:14 MCH 28 pg (28-32) 11/14/19 10:14 MCHC 34 % (30-34) 11/14/19 10:14 RDW 16.7 % (13.2-15.2) H 11/14/19 10:14 Plt Count 50 K/mm3 (140-440) L 11/14/19 10:14 Lymph % (Auto) 11.6 % (13.4-35.0) L 11/13/19 00:31 [place] % (Auto) 9.3 % (0.0-7.3) H 11/14/19 10:14 Eos % (Auto) 0.1 % (0.0-4.3) 11/14/19 10:14 Baso % (Auto) 0.1 % (0.0-1.8) 11/13/19 00:31 Lymph # 0.4 K/mm3 (1.2-5.4) L 11/13/19 00:31 [place] # 0.7 K/mm3 (0.0-0.8) 11/14/19 10:14 Eos # 0.0 K/mm3 (0.0-0.4) 11/14/19 10:14 Baso # 0.0 K/mm3 (0.0-0.1) 11/14/19 10:14 Seg Neutrophils % 82.6 % (40.0-70.0) H 11/14/19 10:14 Seg Neutrophils # 6.4 K/mm3 (1.8-7.7) 11/14/19 10:14 ESR 61 mm/Hr (0-20) 11/14/19 10:14 PT 18.7 Sec. (12.2-14.9) H 11/11/19 22:46 INR 1.53 (0.87-1.13) H 11/11/19 22:46 D-Dimer 6966.37 ng/mlDDU (0-234) H 11/11/19 22:46 ABG pH 7.548 pH Units (7.350-7.450) H 11/14/19 08:49 ABG pCO2 23.6 mm Hg 11/14/19 08:49 ABG pO2 48.1 mm Hg (80.0-90.0) L 11/14/19 08:49 ABG HCO3 20.1 mmol/L (20.0-26.0) 11/14/19 08:49 ABG O2 Saturation 88.1 % (95.0-99.0) L 11/14/19 08:49 ABG O2 Content 11.1 (0.0-44) 11/14/19 08:49 ABG Base Excess -1.4 mmol/L (-2.0-3.0) 11/14/19 08:49 ABG Hemoglobin 9.2 gm/dl (12.0-16.0) L 11/14/19 08:49 ABG Carboxyhemoglobin 1.7 % (0.0-5.0) 11/14/19 08:49 ABG Methemoglobin 0.6 % (0.0-1.5) 11/14/19 08:49 Oxyhemoglobin 86.0 % (95.0-99.0) L 11/14/19 08:49 FiO2 21 % 11/14/19 08:49 Sodium 139 mmol/L (137-145) 11/14/19 10:14 Potassium 2.6 mmol/L (3.6-5.0) L* D 11/14/19 10:14 Chloride 106.9 mmol/L (98-107) 11/14/19 10:14 Carbon Dioxide 18 mmol/L (22-30) L 11/14/19 10:14 Anion Gap 17 mmol/L 11/14/19 10:14 BUN 11 mg/dL (7-17) 11/14/19 10:14 Creatinine 0.5 mg/dL (0.6-1.2) L 11/14/19 10:14 Estimated GFR > 60 ml/min 11/14/19 10:14 BUN/Creatinine Ratio 22 % 11/14/19 10:14 Glucose 111 mg/dL (65-100) H 11/14/19 10:14 Lactic Acid 1.40 mmol/L (0.7-2.0) 11/12/19 03:34 Calcium 6.6 mg/dL (8.4-10.2) L 11/14/19 10:14 Ferritin 272.3 ng/mL (10.0-200.0) H 11/11/19 22:46 Total Bilirubin 0.70 mg/dL (0.1-1.2) 11/14/19 10:14 Total Bilirubin 0.70 mg/dL (0.1-1.2) 11/14/19 10:14 Direct Bilirubin 0.2 mg/dL (0-0.2) 11/14/19 10:14 Indirect Bilirubin 0.5 mg/dL 11/14/19 10:14 AST 15 units/L (5-40) 11/14/19 10:14 AST 17 units/L (5-40) 11/14/19 10:14 ALT 10 units/L (7-56) 11/14/19 10:14 ALT 10 units/L (7-56) 11/14/19 10:14 Alkaline Phosphatase 129 units/L (35-129) 11/14/19 10:14 Alkaline Phosphatase 134 units/L (35-129) H 11/14/19 10:14 Lactate Dehydrogenase 193 units/L (91-180) H 11/11/19 22:46 C-Reactive Protein 9.80 mg/dL (0.00-1.30) H 11/14/19 10:14 Total Protein 5.1 g/dL (6.3-8.2) L 11/14/19 10:14 Total Protein 5.3 g/dL (6.3-8.2) L 11/14/19 10:14 Albumin 1.8 g/dL (3.9-5) L 11/14/19 10:14 Albumin 2.0 g/dL (3.9-5) L 11/14/19 10:14 Albumin/Globulin Ratio 0.5 % 11/14/19 10:14 Albumin/Globulin Ratio 0.6 % 11/14/19 10:14 Vitamin B12 617.7 pg/mL (211-911) 11/14/19 10:13 Folate 8.17 ng/mL (7.3-26.0) 11/14/19 10:14 Procalcitonin 7.39 ng/mL (<0.15) 11/13/19 00:31 TSH 2.790 mlU/mL (0.270-4.200) 11/14/19 10:14 Free T4 1.09 ng/dL (0.76-1.46) 11/14/19 10:14 Urine Color Yellow (Yellow) 11/12/19 00:23 Urine Turbidity Clear (Clear) 11/12/19 00:23 Urine pH 6.0 (5.0-7.0) 11/12/19 00:23 Ur Specific [place] 1.006 (1.003-1.030) 11/12/19 00:23 Urine Protein <15 mg/dl mg/dL (Negative) 11/12/19 00:23 Urine Glucose (UA) Neg mg/dL (Negative) 11/12/19 00:23 Urine Ketones Neg mg/dL (Negative) 11/12/19 00:23 Urine Blood Mod (Negative) 11/12/19 00:23 Urine Nitrite Neg (Negative) 11/12/19 00: Urine Bilirubin Neg (Negative) 11/12/19 00: Urine Urobilinogen 2.0 mg/dL (<2.0) 11/12/19 00:23 Ur Leukocyte Esterase Tr (Negative) 11/12/19 00:23 Urine WBC (Auto) 4.0 /HPF (0.0-6.0) 11/12/19 00:23 Urine RBC (Auto) 3.0 /HPF (0.0-6.0) 11/12/19 00:23 U Epithel Cells (Auto) 6.0 /HPF (0-13.0) 11/12/19 00:23 Urine Opiates Screen Presumptive positive 11/12/19 00: Urine Methadone Screen Presumptive negative 11/12/19 00:23 Ur Barbiturates Screen Presumptive negative 11/12/19 00:23 Ur Phencyclidine Scrn Presumptive negative 11/12/19 00:23 Ur Amphetamines Screen Presumptive positive 11/12/19 00:23 U Benzodiazepines Scrn Presumptive negative 11/12/19 00:23 Urine Cocaine Screen Presumptive negative 11/12/19 00:23 U Marijuana (THC) Screen Presumptive negative 11/12/19 00:23 Drugs of Abuse Note Disclamer 11/12/19 00:23 Blood Type O POSITIVE 11/12/19 06:43 Antibody Screen Negative 11/12/19 06:43 Crossmatch See Detail 11/12/19 06:43 Microbiology: Microbiology 11/11/19 22:38 Peripheral/Venous Blood Culture - Preliminary NO GROWTH AFTER 48 HOURS 11/11/19 22:46 Peripheral/Venous Blood Culture - Preliminary NO GROWTH AFTER 48 HOURS Gonzales/IV: Voiding Method External Female Catheter IV Catheter Type [Right Upper INT / Saline Lock arm] IV Catheter Type [Right Peripheral IV Antecubital] IV Catheter Type [Left Wrist] INT / Saline Lock Active Medications - Current Medications Current Medications: Generic Name Dose Route Start Last Admin Trade Name Freq PRN Reason Stop Dose Admin Acetaminophen 650 mg 11/12/19 01:56 11/14/19 08:27 Tylenol PO 650 mg Q4H PRN Administration Fever >101 Azithromycin 500 mg 11/13/19 10:00 11/14/19 09:34 Zithromax PO 11/15/19 10:01 500 mg QDAY HUSSEIN Administration Dexamethasone 6 mg 11/14/19 12:00 Decadron IV 11/23/19 10:01 DAILY HUSSEIN Enoxaparin Sodium 60 mg 11/14/19 10:00 11/14/19 09:34 Enoxaparin SUB-Q 60 mg Q12HR HUSSEIN Administration Sodium Chloride 1,000 mls @ 125 mls/hr 11/12/19 02:45 11/12/19 14:50 Nacl 0.9% 1000 Ml IV Infused DIRECT HUSSEIN Infusion Cefepime HCl 2 gm in 100 mls @ 200 mls/hr 11/13/19 22:00 11/14/19 08:30 Cefepime/Ns 2 Gm/100 Ml IV Not Given Q8HR [facility] Protocol Vancomycin HCl 1 gm in 250 mls @ 166.667 mls/hr 11/14/19 04:00 11/14/19 04:15 Vancomycin/Ns 1 Gm/250 Ml IV 166.667 mls/hr Q12H HUSSEIN Administration Diltiazem HCl 100 mg in 100 mls @ 15 mls/hr 11/14/19 07:00 11/14/19 07:45 Cardizem/D5w 100mg/100ml IV 15 mg/hr TITR HUSSEIN 15 mls/hr Administration Protocol 15 MG/HR Potassium Chloride 10 meq in 100 mls @ 100 mls/hr 11/14/19 12:00 Kcl 10meq/100ml IV 11/14/19 15:59 Q1H HUSSEIN Azithromycin 500 mg/ Sodium 250 mls @ 250 mls/hr 11/14/19 12:00 Chloride IV Q24HR HUSSEIN Protocol Lorazepam 1 mg 11/12/19 01:53 11/14/19 09:33 Ativan IV 1 mg Q4H PRN Administration Anxiety Nutrition/Malnutrition Assess - Dietary Evaluation Nutrition/Malnutrition Findings: Nutrition Notes Start: 11/12/19 10:55 Freq: Status: Active Protocol: Document 11/12/19 10:55 LP (Rec: 11/12/19 12:04 LP [id number]) Nutrition Notes Need for Assessment generated from: group product manager,MST Initial or Follow up Assessment Other Pertinent Diagnosis Polysubstance Abuse, fever, malaise Current Diet Regular Diet Labs/Tests Reviewed Pertinent Medications Reviewed Height 5 ft 6 in Weight 59.9 kg [place] Body Weight (kg) 59.09 BMI 21.3 Weight Status Appropriate Subjective/Other Information Patient screened for malnutrition risk. Spoke with RN on phone, pt ate breakfast but unsure of percentage. Unable to reach pt by phone Burn Absent Trauma Absent GI Symptoms None Food Allergy No Minimum of two criteria No #1 Nutrition Diagnosis Predicted suboptimal energy intake Etiology related to prior hx of polysubstance abuse As Evidenced by Signs and Symptoms admission diagnoses Is patient on ventilator? No Is Patient Ambulatory and/or Out of Bed No REE-([facility]-confined to bed) 2405.561 Calculation Used for Recommendations [facility] Additional Notes Protein Needs (1-1.2 g/kg 60-72g/day fluid 1ml/kcal Nutrition Intervention Change Diet Order: Continue current diet Goal #1 Po intake to meet at least 75% of energy and protein needs. Anticipated Discharge Needs: Unable to identify at this time Follow-Up By: 11/17/19 Additional Comments Follow up for intakes
[2019-11-14 11:55] LABS: Total Cells Counted 100
[2019-11-14 11:56] LABS: Basophils % (Manual) 0 % (0.0-1.8); Eosinophils % (Manual) 0 % (0.0-4.3)
[2019-11-14 11:57] LABS: Anisocytosis 1+; Toxic Vacuolation 1+
[2019-11-14 11:58] LABS: Ovalocytes 1+; Platelet Estimate Consistent w Auto
[2019-11-14] MEDS ORDERED: ENOXAPARIN 60 MG/0.6 ML INJ SUB-Q ONE (12:00)
[2019-11-14] MEDS ORDERED: AZITHROMYCIN 500 MG in SODIUM CHLORIDE 0.9% 250ML 250 ML IV SCH (12:00)
[2019-11-14] MEDS: dexAMETHasone 4 MG/ML VIAL IV SCH (13:40)
[2019-11-14] MEDS: POTASSIUM CHLORIDE 10 MEQ 10 MEQ/100 ML BAG IV SCH ×4 (13:41→17:21)
[2019-11-14] MEDS ORDERED: DIGOXIN 0.5 MG/2 ML INJ IV ONE (14:30)
[2019-11-14] MEDS ORDERED: SODIUM CHLORIDE 0.9% 500 ML 250 ML IV ONE (14:39)
[2019-11-14] MEDS ORDERED: POTASSIUM CHLORIDE 10 MEQ 10 MEQ/100 ML BAG IV SCH (15:00)
[2019-11-14] MEDS ORDERED: POTASSIUM CHLORIDE 20 MEQ PACKET FEEDTUBE ONE (15:00)
[2019-11-15 02:19] LABS: Basophils % (Auto) 0.3 % (0.0-1.8); Hematocrit 23.8 % (30.3-42.9); Lymphocytes # (Auto) 0.7 K/mm3 (1.2-5.4); Lymphocytes % (Auto) 12.2 % (13.4-35.0); Mean Corpuscular HGB Conc 34 % (30-34); Mean Corpuscular Volume 84 fl (79-97); Monocytes # (Auto) 0.2 K/mm3 (0.0-0.8); Monocytes % (Auto) 4.2 % (0.0-7.3); Red Blood Count 2.82 M/mm3 (3.65-5.03); Red Cell Distribution Width 16.8 % (13.2-15.2)
[2019-11-15 02:20] LABS: Platelet Count 52 K/mm3 (140-440)
[2019-11-15 02:22] LABS: Alanine Aminotransferase 9 units/L (7-56); Albumin 2.1 g/dL (3.9-5); Blood Urea Nitrogen 16 mg/dL (7-17); Calcium 6.8 mg/dL (8.4-10.2); Hemolysis Index 7
[2019-11-15 02:44] LABS: BUN/Creatinine Ratio 32
[2019-11-15 04:18] LABS: ABG Base Excess -1.5 mmol/L (-2.0-3.0); ABG HCO3 20.7 mmol/L (20.0-26.0); ABG Methemoglobin 0.6 % (0.0-1.5); ABG Oxygen Saturation 97.5 % (95.0-99.0); ABG PCO2 25.8 mm Hg; ABG PH 7.523 pH Units (7.350-7.450); ABG PO2 86.2 mm Hg (80.0-90.0)
[2019-11-15] MEDS: VANCOMYCIN/NS 1 GM/250 ML 1 GM/250 ML BAG IV SCH ×2 (04:50→16:03)
[2019-11-15] MEDS: LORazepam 2 MG/ML VIAL IV PRN ×2 (04:51→22:23)
[2019-11-15] MEDS: CEFEPIME/NS 2 GM/100 ML 2 GM/100 ML BAG IV SCH ×3 (07:00→22:23)
[2019-11-15] MEDS ORDERED: POTASSIUM CHLORIDE ER 20 MEQ TAB PO ONE (09:00)
[2019-11-15] MEDS: AZITHROMYCIN 250 MG TAB PO SCH (10:25)
[2019-11-15] MEDS: dexAMETHasone 4 MG/ML VIAL IV SCH (10:25)
--- NOTE | 2019-11-15 10:29 | Consultation ---
History of Present Illness - Reason for Consult Consult date: 11/15/19 worsneing pneumonia Requesting physician: ALICIA JANE - History of Present Illness 59 yo female with history of polysubstance abuse including IV drug/meth admitted on 11/11/2019 due to fever and malaise for several weeks. She denies headache, sore throat, chest pain, back pain and abdominal pain. No shortness of breath. Currently she is somnolent unable to provide a history. On arrival. temp 103, HR 133, R 24, O2 sat 91%-->73%, BP 112/55. WBC 4. Hg 6.8. Plat 52. Ddimer 6966. CRP 9.6. LDH 193. Procal 5.1. Creat 0.8. Lactete 3. Ua neg. UDS +amph +opioids. Blood cx 11/11/2019 no growth so far. Initial CXR neg. Repeat CXR RML infiltrate. Repeat CXR multifocal pneumonia.Currenly on 4L NC. Review of Systems: unable to obtain due to AMS Past History Past Medical History: other (POLY SUBSTANCE ABUSE. ) Past Surgical History: No surgical history Social history: smoking, IV drug use Family history: no significant family history Medications and Allergies Allergies Allergy/AdvReac Type Severity Reaction Status Date / Time Penicillins Allergy Anaphylaxis Verified 11/11/19 22:07 Active Meds: Active Medications Acetaminophen (Tylenol) 650 mg PO Q4H PRN PRN Reason: Fever >101 Last Admin: 11/14/19 08:27 Dose: 650 mg Documented by: Dexamethasone (Decadron) 6 mg IV DAILY HUSSEIN Stop: 11/23/19 10:01 Last Admin: 11/15/19 10:25 Dose: 6 mg Documented by: Sodium Chloride (Nacl 0.9% 1000 Ml) 1,000 mls @ 125 mls/hr IV DIRECT HUSSEIN Last Infusion: 11/12/19 14:50 Dose: Infused Documented by: Cefepime HCl (Cefepime/Ns 2 Gm/100 Ml) 2 gm in 100 mls @ 200 mls/hr IV Q8HR HUSSEIN; Protocol Last Admin: 11/15/19 07:00 Dose: 200 mls/hr Documented by: Vancomycin HCl (Vancomycin/Ns 1 Gm/250 Ml) 1 gm in 250 mls @ 166.667 mls/hr IV Q12H HUSSEIN Last Admin: 11/15/19 04:50 Dose: 166.667 mls/hr Documented by: Diltiazem HCl (Cardizem/D5w 100mg/100ml) 100 mg in 100 mls @ 15 mls/hr IV TITR HUSSEIN; Protocol Last Titration: 11/14/19 12:30 Dose: 0 mg/hr, 0 mls/hr Documented by: Lorazepam (Ativan) 1 mg IV Q4H PRN PRN Reason: Anxiety Last Admin: 11/15/19 04:51 Dose: 1 mg Documented by: Physical Examination - Physical Exam Narrative exam: Physical Exam: Constitutional: somnolent open eyes in mod resp distress on NC O2 5L Head, Ears, Nose: Normocephalic, atraumatic. External ears, nose normal Eyes: Conjunctivae/corneas clear. No icterus. No ptosis. Oral: limited Neck: Supple, no meningeal signs Cardiovascular: tachycardic Respiratory: crackles bilaterally GI: Soft, non-tender Musculoskeletal: no edema, deformities Skin: No rash or abscess Hem/Lymphatic: No palpable cervical or supraclavicular nodes. No lymphangitis Psych: somnolent Neurological:somnolent open eyes - Constitutional Vitals: Vital Signs Temp Pulse Resp BP Pulse Ox 98.7 F 81 48 H 101/43 95 11/15/19 08:00 11/15/19 08:00 11/15/19 08:00 11/15/19 08:00 11/15/19 08:06 Temperature -Last 24 Hours Temperature 98.7 F Temperature 98.9 F Temperature 98.8 F Temperature 100 F Results - Labs CBC & Chem 7: 11/15/19 01:37 11/15/19 01:37 Labs: Abnormal lab results 11/14/19 11/14/19 11/14/19 Range/Units 10:14 10:14 10:14 RBC 3.04 L (3.65-5.03) M/mm3 Hgb 8.6 L (10.1-14.3) gm/dl Hct 25.5 L (30.3-42.9) % RDW 16.7 H (13.2-15.2) % Plt Count 50 L (140-440) K/mm3 Lymph % (Auto) (13.4-35.0) % [place] % (Auto) 9.3 H (0.0-7.3) % Lymph # (1.2-5.4) K/mm3 Seg Neutrophils % 82.6 H (40.0-70.0) % Seg Neuts % (Manual) 88.0 H (40.0-70.0) % Lymphocytes % (Manual) 6.0 L (13.4-35.0) % Lymphocytes # (Manual) 0.5 L (1.2-5.4) K/mm3 ABG pH (7.350-7.450) pH Units ABG Hemoglobin (12.0-16.0) gm/dl Potassium (3.6-5.0) mmol/L Chloride (98-107) mmol/L Carbon Dioxide (22-30) mmol/L Creatinine (0.6-1.2) mg/dL Glucose (65-100) mg/dL Calcium (8.4-10.2) mg/dL Ferritin (10.0-200.0) ng/mL Alkaline Phosphatase (35-129) units/L Lactate Dehydrogenase (91-180) units/L C-Reactive Protein 9.80 H (0.00-1.30) mg/dL NT-Pro-B Natriuret Pep (0-900) pg/mL Total Protein 5.1 L (6.3-8.2) g/dL Albumin 2.0 L (3.9-5) g/dL 11/14/19 11/14/19 11/14/19 Range/Units 10:14 10:14 14:50 RBC (3.65-5.03) M/mm3 Hgb (10.1-14.3) gm/dl Hct (30.3-42.9) % RDW (13.2-15.2) % Plt Count (140-440) K/mm3 Lymph % (Auto) (13.4-35.0) % [place] % (Auto) (0.0-7.3) % Lymph # (1.2-5.4) K/mm3 Seg Neutrophils % (40.0-70.0) % Seg Neuts % (Manual) (40.0-70.0) % Lymphocytes % (Manual) (13.4-35.0) % Lymphocytes # (Manual) (1.2-5.4) K/mm3 ABG pH (7.350-7.450) pH Units ABG Hemoglobin (12.0-16.0) gm/dl Potassium 2.6 L* D (3.6-5.0) mmol/L Chloride (98-107) mmol/L Carbon Dioxide 18 L (22-30) mmol/L Creatinine 0.5 L (0.6-1.2) mg/dL Glucose 111 H (65-100) mg/dL Calcium 6.6 L (8.4-10.2) mg/dL Ferritin 250.2 H (10.0-200.0) ng/mL Alkaline Phosphatase 134 H (35-129) units/L Lactate Dehydrogenase 333 H (91-180) units/L C-Reactive Protein 10.00 H (0.00-1.30) mg/dL NT-Pro-B Natriuret Pep 87461 H (0-900) pg/mL Total Protein 5.3 L (6.3-8.2) g/dL Albumin 1.8 L (3.9-5) g/dL 11/15/19 11/15/19 11/15/19 Range/Units 01:37 01:37 04:10 RBC 2.82 L (3.65-5.03) M/mm3 Hgb 8.0 L (10.1-14.3) gm/dl Hct 23.8 L (30.3-42.9) % RDW 16.8 H (13.2-15.2) % Plt Count 52 L (140-440) K/mm3 Lymph % (Auto) 12.2 L (13.4-35.0) % [place] % (Auto) (0.0-7.3) % Lymph # 0.7 L (1.2-5.4) K/mm3 Seg Neutrophils % 83.3 H (40.0-70.0) % Seg Neuts % (Manual) (40.0-70.0) % Lymphocytes % (Manual) (13.4-35.0) % Lymphocytes # (Manual) (1.2-5.4) K/mm3 ABG pH 7.523 H (7.350-7.450) pH Units ABG Hemoglobin 7.9 L (12.0-16.0) gm/dl Potassium 3.5 L D (3.6-5.0) mmol/L Chloride 107.4 H (98-107) mmol/L Carbon Dioxide 19 L (22-30) mmol/L Creatinine 0.5 L (0.6-1.2) mg/dL Glucose 178 H (65-100) mg/dL Calcium 6.8 L (8.4-10.2) mg/dL Ferritin (10.0-200.0) ng/mL Alkaline Phosphatase (35-129) units/L Lactate Dehydrogenase (91-180) units/L C-Reactive Protein (0.00-1.30) mg/dL NT-Pro-B Natriuret Pep (0-900) pg/mL Total Protein 5.7 L (6.3-8.2) g/dL Albumin 2.1 L (3.9-5) g/dL Assessment and Plan Cultures: Blood cx 11/11/2019 no growth so far. A/P: 59 yo female with history of polysubstance abuse including IV drug/meth adm itted on 11/11/2019 due to fever and malaise for several weeks: #Severe Sepsis: with fever, tachycardia, pancytopenia, secondary pneumonia +/- severe anemia. Blood culture so far negative. UA neg. #Acute hypoxic respiratoy failuire: on 5L NC due to pneumonia r/o PE, very high ddimer Ddimer 6966. Noted elevated BNP ? component of heart failure. #Multifocal pneumonia: ? aspiration ? COVID-19 ?PJP. Initial CXR neg. Repeat CXR RML infiltrate. Repeat CXR multifocal pneumonia. It seems more bacterial given very high procal 5.1. COVID-19 markers very high - Ddimer 6966. CRP 9.6. LDH 193. #RVR Afib: triggered by sepsis #Pancytopenia: from sepsis, should r/o HIV-induced myelosuppression. Hg 6.8. S/p PRBC transfusion, r/o GI bleed #Polysubstance abuse: UDS +amph +opioids. #Acute encephalopathy: ? drug intoxication ?sepsis ?hepatic Recs: -Obtain COVID test -COVID islation until r/o -F/u blood culture -Obtain chest CTA r/o PE -Obtain HIV, viral hepatitis, RPR -Obtain TTE -Continue cefepime 2 g iV q 12h and vancomycin with PK consutl -Obtian MRSA PCR -Check ammonia -Consult Hem -Eval for GI bleed MD [facility] C: [phone] O: [phone] F: [phone]
--- NOTE | 2019-11-15 13:46 | Progress Note ---
Assessment and Plan Assessment and plan: 59-year-old female with a medical history of drug abuse presenting to the hospital with chief complaint of fever and malaise for about 3 to 4 weeks prior to presentation. In the ED, her labs showed pancytopenia with Hb 6. She was admitted to the hospital and was transfused. 11/12. Patient seen and examined at bedside this morning. Had 103F last night. She is on ceftriaxone - will switch to cefepime and vancomycin for broader coverage. Will send procalcitonin, ESR, CRP, hep panel, TSH, Vitamin B12, folate, HIV etc. Patient refuses to have coronavirus test. 11/13. Overnight, patient had episode of atrial fibrillation with RVR with heart rate in the 150s up to 190s. Patient was started on Cardizem drip after giving metoprolol IV and transferred to the [facility]. I saw patient and examined at bedside today. Patient is tachypneic with respiratory rate in the 30s, tachycardic with heart rate in the 150s. She is on Cardizem drip 15mg/hr. Cardiology has been consulted this morning. Added digox in due to elevated heart rate. Stat chest x-ray ordered showed worsening bilateral pneumonia. Patient is currently on vancomycin, cefepime. Added azithromycin for now. ID has been consulted. Stat ABG ordered to evaluate respiratory status. Results still pending. Ultrasound of the lower extremities ordered yesterday for elevated d-dimer still pending at this time. Will give patient Lovenox 60 mg twice daily for now. CTA chest ordered to rule out possible PE. 11/14. Patient seen and examined at bedside this morning. Patient is slightly better today. Her heart rate is better controlled. Cardiology is on board. Patient agrees to get a COVID-19 test-RN informed to get a test this morning. She is asking when she can go home - Patient Problems (1) Acute hypoxemic respiratory failure Current Visit: Yes Status: Acute Plan to address problem: Likely from bilateral pneumonia-possible COVID-19. Patient continues to refuse COVID-19 test Patient started on dexamethasone 6 mg IV daily Patient is currently on broad-spectrum antibiotics (2) Sepsis Current Visit: Yes Status: Acute Plan to address problem: Patient had a temperature 103 F 11/11. Urinalysis and chest x-ray - negative for any infection on admission Repeat chest x-ray showed worsening bilateral pneumonia Continues cefepime and vancomycin COVID-19 test has been ordered patient continues to refuse. Started patient on dexamethasone 6 mg IV daily for now ID recommendations appreciated (3) Atrial fibrillation Current Visit: Yes Status: Acute Plan to address problem: Patient developed rapid atrial fibrillation on 11/13 early a.m. with heart rate in 170s 190s Patient received metoprolol IV with no response and she was started on Cardizem drip Cardiology has been consulted. Echocardiogram has been ordered Cardizem drip dced as per cardiology (4) Anemia Current Visit: Yes Status: Acute Plan to address problem: Now status post transfusion of PRBCs Continue to monitor hemoglobin No evidence of GI bleed. (5) Pancytopenia Current Visit: Yes Status: Acute Plan to address problem: Possible multiple etiologies-need to rule out any ongoing infection-hepatitis panel, COVID-19 test, HIV ordered Patient continues to refuse COVID-19 test. Continue to monitor blood counts (6) D-dimer, elevated Current Visit: Yes Status: Acute Plan to address problem: Ultrasound lower extremity Doppler ordered results are pending Empirical treatment for possible PE with one time Lovenox for now CTA chest ordered (7) Hypokalemia Current Visit: Yes Status: Acute Plan to address problem: Continue to monitor potassium. Potassium supplements as ordered (8) Polysubstance abuse Current Visit: Yes Status: Chronic Plan to address problem: Drug abuse counseling Needs to have rehab program set up at discharge (9) DVT prophylaxis Current Visit: Yes Status: Acute Plan to address problem: Lovenox if platelets >50. SCDs (10) Advance care planning Current Visit: Yes Status: Acute Plan to address problem: Patient is wheelchair-bound and will need placement History Interval history: See assessment and plan Hospitalist Physical - Constitutional Vitals: Temp Pulse Resp BP Pulse Ox 98.7 F 88 33 H 112/49 93 11/15/19 08:00 11/15/19 12:00 11/15/19 11:00 11/15/19 11:00 11/15/19 11:00 General appearance: Present: no acute distress - EENT Eyes: Present: PERRL - Respiratory Respiratory: bilateral: rales - Cardiovascular Heart Sounds: Present: S1 & S2 - Extremities Extremities: No edema - Abdominal General gastrointestinal: soft, non-tender, non-distended - Neurologic Neurologic: CNII-XII intact HEART Score - HEART Score Age: 45-65 Risk factors: No known risk factors Troponin: < normal limit - Critical Actions Critical Actions: 0-3 pts:0.9-1.7%risk of adverse cardiac event.Candidate for discharge Results - Labs CBC & Chem 7: 11/15/19 01:37 11/15/19 01:37 Labs: Laboratory Last Values WBC 5.7 K/mm3 (4.5-11.0) 11/15/19 01:37 RBC 2.82 M/mm3 (3.65-5.03) L 11/15/19 01:37 Hgb 8.0 gm/dl (10.1-14.3) L 11/15/19 01:37 Hct 23.8 % (30.3-42.9) L 11/15/19 01:37 MCV 84 fl (79-97) 11/15/19 01:37 MCH 28 pg (28-32) 11/15/19 01:37 MCHC 34 % (30-34) 11/15/19 01:37 RDW 16.8 % (13.2-15.2) H 11/15/19 01:37 Plt Count 52 K/mm3 (140-440) L 11/15/19 01:37 Lymph % (Auto) 12.2 % (13.4-35.0) L 11/15/19 01:37 [place] % (Auto) 4.2 % (0.0-7.3) 11/15/19 01:37 Eos % (Auto) 0.0 % (0.0-4.3) 11/15/19 01:37 Baso % (Auto) 0.3 % (0.0-1.8) 11/15/19 01:37 Lymph # 0.7 K/mm3 (1.2-5.4) L 11/15/19 01:37 [place] # 0.2 K/mm3 (0.0-0.8) 11/15/19 01:37 Eos # 0.0 K/mm3 (0.0-0.4) 11/15/19 01:37 Baso # 0.0 K/mm3 (0.0-0.1) 11/15/19 01:37 Add Manual Diff Complete 11/14/19 10:14 Total Counted 100 11/14/19 10:14 Seg Neutrophils % 83.3 % (40.0-70.0) H 11/15/19 01:37 Seg Neuts % (Manual) 88.0 % (40.0-70.0) H 11/14/19 10:14 Band Neutrophils % 0 % 11/14/19 10:14 Lymphocytes % (Manual) 6.0 % (13.4-35.0) L 11/14/19 10:14 Reactive Lymphs % (Man) 0 % 11/14/19 10:14 Monocytes % (Manual) 6.0 % (0.0-7.3) 11/14/19 10:14 Eosinophils % (Manual) 0 % (0.0-4.3) 11/14/19 10:14 Basophils % (Manual) 0 % (0.0-1.8) 11/14/19 10:14 Metamyelocytes % 0 % 11/14/19 10:14 Myelocytes % 0 % 11/14/19 10:14 Promyelocytes % 0 % 11/14/19 10:14 Blast Cells % 0 % 11/14/19 10:14 Nucleated RBC % Not Reportable 11/14/19 10:14 Seg Neutrophils # 4.8 K/mm3 (1.8-7.7) 11/15/19 01:37 Seg Neutrophils # Man 7.0 K/mm3 (1.8-7.7) 11/14/19 10:14 Band Neutrophils # 0.0 K/mm3 11/14/19 10:14 Lymphocytes # (Manual) 0.5 K/mm3 (1.2-5.4) L 11/14/19 10:14 Abs React Lymphs (Man) 0.0 K/mm3 11/14/19 10:14 Monocytes # (Manual) 0.5 K/mm3 (0.0-0.8) 11/14/19 10:14 Eosinophils # (Manual) 0.0 K/mm3 (0.0-0.4) 11/14/19 10:14 Basophils # (Manual) 0.0 K/mm3 (0.0-0.1) 11/14/19 10:14 Metamyelocytes # 0.0 K/mm3 11/14/19 10:14 Myelocytes # 0.0 K/mm3 11/14/19 10:14 Promyelocytes # 0.0 K/mm3 11/14/19 10:14 Blast Cells # 0.0 K/mm3 11/14/19 10:14 WBC Morphology Not Reportable 11/14/19 10:14 Hypersegmented Neuts Not Reportable 11/14/19 10:14 Hyposegmented Neuts Not Reportable 11/14/19 10:14 Hypogranular Neuts Not Reportable 11/14/19 10:14 Smudge Cells Not Reportable 11/14/19 10:14 Toxic Granulation Not Reportable 11/14/19 10:14 Toxic Vacuolation 1+ 11/14/19 10:14 Dohle Bodies Not Reportable 11/14/19 10:14 Pelger-Huet Anomaly Not Reportable 11/14/19 10:14 Sherri Rods Not Reportable 11/14/19 10:14 Platelet Estimate Consistent w auto 11/14/19 10:14 Clumped Platelets Not Reportable 11/14/19 10:14 Plt Clumps, EDTA Not Reportable 11/14/19 10:14 Large Platelets Not Reportable 11/14/19 10:14 Giant Platelets Not Reportable 11/14/19 10:14 Platelet Satelliting Not Reportable 11/14/19 10:14 Plt Morphology Comment Not Reportable 11/14/19 10:14 RBC Morphology Not Reportable 11/14/19 10:14 Dimorphic RBCs Not Reportable 11/14/19 10:14 Polychromasia 1+ 11/14/19 10:14 Hypochromasia Not Reportable 11/14/19 10:14 Poikilocytosis Not Reportable 11/14/19 10:14 Anisocytosis 1+ 11/14/19 10:14 Microcytosis Not Reportable 11/14/19 10:14 Macrocytosis Not Reportable 11/14/19 10:14 Spherocytes Not Reportable 11/14/19 10:14 Pappenheimer Bodies Not Reportable 11/14/19 10:14 Sickle Cells Not Reportable 11/14/19 10:14 Target Cells Not Reportable 11/14/19 10:14 Tear Drop Cells Not Reportable 11/14/19 10:14 Ovalocytes 1+ 11/14/19 10:14 Helmet Cells Not Reportable 11/14/19 10:14 [place] Bodies Not Reportable 11/14/19 10:14 [place] Rings Not Reportable 11/14/19 10:14 [place] Cells Not Reportable 11/14/19 10:14 Bite Cells Not Reportable 11/14/19 10:14 Crenated Cell Not Reportable 11/14/19 10:14 Elliptocytes Few 11/14/19 10:14 Acanthocytes (Spur) Not Reportable 11/14/19 10:14 Rouleaux Not Reportable 11/14/19 10:14 Hemoglobin C Crystals Not Reportable 11/14/19 10:14 Schistocytes Not Reportable 11/14/19 10:14 Malaria parasites Not Reportable 11/14/19 10:14 ESR 61 mm/Hr (0-20) 11/14/19 10:14 [place] Bodies Not Reportable 11/14/19 10:14 Hem Pathologist Commnt No 11/14/19 10:14 PT 18.7 Sec. (12.2-14.9) H 11/11/19 22:46 INR 1.53 (0.87-1.13) H 11/11/19 22:46 D-Dimer 6966.37 ng/mlDDU (0-234) H 11/11/19 22:46 ABG pH 7.523 pH Units (7.350-7.450) H 11/15/19 04:10 ABG pCO2 25.8 mm Hg 11/15/19 04:10 ABG pO2 86.2 mm Hg (80.0-90.0) 11/15/19 04:10 ABG HCO3 20.7 mmol/L (20.0-26.0) 11/15/19 04:10 ABG O2 Saturation 97.5 % (95.0-99.0) 11/15/19 04:10 ABG O2 Content 10.8 (0.0-44) 11/15/19 04:10 ABG Base Excess -1.5 mmol/L (-2.0-3.0) 11/15/19 04:10 ABG Hemoglobin 7.9 gm/dl (12.0-16.0) L 11/15/19 04:10 ABG Carboxyhemoglobin 1.4 % (0.0-5.0) 11/15/19 04:10 ABG Methemoglobin 0.6 % (0.0-1.5) 11/15/19 04:10 Oxyhemoglobin 95.5 % (95.0-99.0) 11/15/19 04:10 FiO2 44 % 11/15/19 04:10 Sodium 139 mmol/L (137-145) 11/15/19 01:37 Potassium 3.5 mmol/L (3.6-5.0) L D 11/15/19 01:37 Chloride 107.4 mmol/L (98-107) H 11/15/19 01:37 Carbon Dioxide 19 mmol/L (22-30) L 11/15/19 01:37 Anion Gap 16 mmol/L 11/15/19 01:37 BUN 16 mg/dL (7-17) 11/15/19 01:37 Creatinine 0.5 mg/dL (0.6-1.2) L 11/15/19 01:37 Estimated GFR > 60 ml/min 11/15/19 01:37 BUN/Creatinine Ratio 32 % 11/15/19 01:37 Glucose 178 mg/dL (65-100) H 11/15/19 01:37 Lactic Acid 1.40 mmol/L (0.7-2.0) 11/12/19 03:34 Calcium 6.8 mg/dL (8.4-10.2) L 11/15/19 01:37 Ferritin 250.2 ng/mL (10.0-200.0) H 11/14/19 10:14 Total Bilirubin 0.50 mg/dL (0.1-1.2) 11/15/19 01:37 Direct Bilirubin 0.2 mg/dL (0-0.2) 11/14/19 10:14 Indirect Bilirubin 0.5 mg/dL 11/14/19 10:14 AST 11 units/L (5-40) 11/15/19 01:37 ALT 9 units/L (7-56) 11/15/19 01:37 Alkaline Phosphatase 109 units/L (35-129) 11/15/19 01:37 Lactate Dehydrogenase 333 units/L (91-180) H 11/14/19 14:50 C-Reactive Protein 10.00 mg/dL (0.00-1.30) H 11/14/19 14:50 NT-Pro-B Natriuret Pep 58556 pg/mL (0-900) H 11/14/19 14:50 Total Protein 5.7 g/dL (6.3-8.2) L 11/15/19 01:37 Albumin 2.1 g/dL (3.9-5) L 11/15/19 01:37 Albumin/Globulin Ratio 0.6 % 11/15/19 01:37 Vitamin B12 617.7 pg/mL (211-911) 11/14/19 10:13 Folate 8.17 ng/mL (7.3-26.0) 11/14/19 10:14 Procalcitonin 7.39 ng/mL (<0.15) 11/13/19 00:31 TSH 2.790 mlU/mL (0.270-4.200) 11/14/19 10:14 Free T4 1.09 ng/dL (0.76-1.46) 11/14/19 10:14 Urine Color Yellow (Yellow) 11/12/19 00:23 Urine Turbidity Clear (Clear) 11/12/19 00:23 Urine pH 6.0 (5.0-7.0) 11/12/19 00:23 Ur Specific [place] 1.006 (1.003-1.030) 11/12/19 00:23 Urine Protein <15 mg/dl mg/dL (Negative) 11/12/19 00:23 Urine Glucose (UA) Neg mg/dL (Negative) 11/12/19 00:23 Urine Ketones Neg mg/dL (Negative) 11/12/19 00:23 Urine Blood Mod (Negative) 11/12/19 00:23 Urine Nitrite Neg (Negative) 11/12/19 00:23 Urine Bilirubin Neg (Negative) 11/12/19 00:23 Urine Urobilinogen 2.0 mg/dL (<2.0) 11/12/19 00:23 Ur Leukocyte Esterase Tr (Negative) 11/12/19 00:23 Urine WBC (Auto) 4.0 /HPF (0.0-6.0) 11/12/19 00:23 Urine RBC (Auto) 3.0 /HPF (0.0-6.0) 11/12/19 00:23 U Epithel Cells (Auto) 6.0 /HPF (0-13.0) 11/12/19 00:23 Urine Opiates Screen Presumptive positive 11/12/19 00:23 Urine Methadone Screen Presumptive negative 11/12/19 00:23 Ur Barbiturates Screen Presumptive negative 11/12/19 00:23 Ur Phencyclidine Scrn Presumptive negative 11/12/19 00:23 Ur Amphetamines Screen Presumptive positive 11/12/19 00:23 U Benzodiazepines Scrn Presumptive negative 11/12/19 00:23 Urine Cocaine Screen Presumptive negative 11/12/19 00:23 U Marijuana (THC) Screen Presumptive negative 11/12/19 00:23 Drugs of Abuse Note Disclamer 11/12/19 00:23 Blood Type O POSITIVE 11/12/19 06:43 Antibody Screen Negative 11/12/19 06:43 Crossmatch See Detail 11/12/19 06:43 Microbiology: Microbiology 11/11/19 22:38 Peripheral/Venous Blood Culture - Preliminary NO GROWTH AFTER 72 HOURS 11/11/19 22:46 Peripheral/Venous Blood Culture - Preliminary NO GROWTH AFTER 72 HOURS Gonzales/IV: Voiding Method External Female Catheter IV Catheter Type [Left INT / Saline Lock Antecubital] IV Catheter Type [Right Upper INT / Saline Lock arm] IV Catheter Type [Right INT / Saline Lock Antecubital] IV Catheter Type [Left Wrist] INT / Saline Lock Active Medications - Current Medications Current Medications: Generic Name Dose Route Start Last Admin Trade Name Freq PRN Reason Stop Dose Admin Acetaminophen 650 mg 11/12/19 01:56 11/14/19 08:27 Tylenol PO 650 mg Q4H PRN Administration Fever >101 Dexamethasone 6 mg 11/14/19 12:00 11/15/19 10:25 Decadron IV 11/23/19 10:01 6 mg DAILY HUSSEIN Administration Cefepime HCl 2 gm in 100 mls @ 200 mls/hr 11/13/19 22:00 11/15/19 07:00 Cefepime/Ns 2 Gm/100 Ml IV 200 mls/hr Q8HR HUSSEIN Administration Protocol Vancomycin HCl 1 gm in 250 mls @ 166.667 mls/hr 11/14/19 04:00 11/15/19 04:50 Vancomycin/Ns 1 Gm/250 Ml IV 166.667 mls/hr Q12H HUSSEIN Administration Diltiazem HCl 100 mg in 100 mls @ 15 mls/hr 11/14/19 07:00 11/14/19 12:30 Cardizem/D5w 100mg/100ml IV 0 mg/hr TITR HUSSEIN 0 mls/hr Titration Protocol 15 MG/HR Lorazepam 1 mg 11/12/19 01:53 11/15/19 04:51 Ativan IV 1 mg Q4H PRN Administration Anxiety Nutrition/Malnutrition Assess - Dietary Evaluation Nutrition/Malnutrition Findings: Nutrition Notes Start: 11/12/19 10:5 5 Freq: Status: Active Protocol: Document 11/12/19 10:55 LP (Rec: 11/12/19 12:04 LP [id number]) Nutrition Notes 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 Spoke with RN on phone, pt ate breakfast but unsure of percentage. Unable to reach pt by phone Burn Absent Trauma Absent GI Symptoms None Food Allergy No Minimum of two criteria No #1 Nutrition Diagnosis Predicted suboptimal energy intake Etiology related to prior hx of polysubstance abuse As Evidenced by Signs and Symptoms admission diagnoses Is patient on ventilator? No Is Patient Ambulatory and/or Out of Bed No REE-([facility]-confined to bed) [phone] Calculation Used for Recommendations [facility] Additional Notes Protein Needs (1-1.2 g/kg 60-72g/day fluid 1ml/kcal Nutrition Intervention Change Diet Order: Continue current diet Goal #1 Po intake to meet at least 75% of energy and protein needs. Anticipated Discharge Needs: Unable to identify at this time Follow-Up By: 11/17/19 Additional Comments Follow up for intakes
--- NOTE | 2019-11-15 14:09 | Cat Scan Report ---
CTA CHEST WITH IV CONTRAST INDICATION: Chest pain and shortness of breath. TECHNIQUE: Axial CT images were obtained through the chest after injection of 100 cc IV contrast. 3 plane MIP re constructions were produced. All CT scans at this location are performed using CT dose reduction for ALARA by means of automated exposure control. COMPARISON: None available. FINDINGS: Limited by moderate amount of respiratory motion artifact PULMONARY ARTERIES: No pulmonary emboli. THORACIC AORTA: No acute abnormality. HEART: Enlarged with left subclavian pacemaker leads CORONARY ARTERIES: No significant calcification. PLEURA: Small bilateral pleural effusions with compressive atelectasis both lung bases. Multifocal gr oundglass streaky parenchymal opacities both upper and lower lobes No pneumothorax. LYMPH NODES: No significant adenopathy. LUNGS: No acute air space or interstitial disease. ADDITIONAL FINDINGS: Unilateral right breast implant UPPER ABDOMEN: Calcified gallstones with pneumobilia and gas noted in the gallbladder and intrahepati c bile ducts cirrhotic morphology of liver and splenomegaly SKELETAL STRUCTURES: No significant osseous abnormality. IMPRESSION: 1. No CT evidence for pulmonary embolism. 2. Multifocal bilateral streaky groundglass opacities worrisome for COVID bronchopneumonia. 3. Small bilateral pleural effusions 4. Cirrhosis with hepatosplenomegaly 5. Cholelithiasis Signer Name: Michi Foreman MD Signed: 11/15/2019 2:05 PM Workstation Name: [id number]
--- NOTE | 2019-11-15 14:11 | Consultation ---
History of Present Illness Consult date: 11/15/19 Requesting physician: ALICIA JANE Reason for consult: hypoxemia History of present illness: Called by IMS on yesterday that patient was extremely tachypnic and hypoxic. Admitted with bilateral pneumonia and concern for COVID, but patient refusing COVID testing. BNP is elevated at 11k. Cardiology saw on yesterday and recommended CTA which was done today. No official read but did not see any clots on my read. Does have bilateral mid lung infiltrates and bilateral pleural effusions, moderate in size. Refused bipap therapy last night. Stable now on nasal cannula at 4 liters after being weaned down. Past History Past Medical History: other (POLY SUBSTANCE ABUSE. ) Past Surgical History: No surgical history Social history: smoking, IV drug use Family history: no significant family history Medications and Allergies Allergies Allergy/AdvReac Type Severity Reaction Status Date / Time Penicillins Allergy Anaphylaxis Verified 11/11/19 22:07 Active Meds: Active Medications Acetaminophen (Tylenol) 650 mg PO Q4H PRN PRN Reason: Fever >101 Last Admin: 11/14/19 08:27 Dose: 650 mg Documented by: Dexamethasone (Decadron) 6 mg IV DAILY HUSSEIN Stop: 11/23/19 10:01 Last Admin: 11/15/19 10:25 Dose: 6 mg Documented by: Cefepime HCl (Cefepime/Ns 2 Gm/100 Ml) 2 gm in 100 mls @ 200 mls/hr IV Q8HR HUSSEIN; Protocol Last Admin: 11/15/19 07:00 Dose: 200 mls/hr Documented by: Vancomycin HCl (Vancomycin/Ns 1 Gm/250 Ml) 1 gm in 250 mls @ 166.667 mls/hr IV Q12H HUSSEIN Last Admin: 11/15/19 04:50 Dose: 166.667 mls/hr Documented by: Diltiazem HCl (Cardizem/D5w 100mg/100ml) 100 mg in 100 mls @ 15 mls/hr IV [facility]; Protocol Last Titration: 11/14/19 12:30 Dose: 0 mg/hr, 0 mls/hr Documented by: Lorazepam (Ativan) 1 mg IV Q4H PRN PRN Reason: Anxiety Last Admin: 11/15/19 04:51 Dose: 1 mg Documented by: Physical Examination Vital signs: Vital Signs Pulse Ox 91 11/11/19 21:48 Results - Laboratory Findings CBC and BMP: 11/15/19 01:37 11/15/19 01:37 ABG ABG pH 7.523 pH Units (7.350-7.450) H 11/15/19 04:10 ABG pCO2 25.8 mm Hg 11/15/19 04:10 ABG pO2 86.2 mm Hg (80.0-90.0) 11/15/19 04:10 ABG O2 Saturation 97.5 % (95.0-99.0) 11/15/19 04:10 PT/INR, D-dimer PT 18.7 Sec. (12.2-14.9) H 11/11/19 22:46 INR 1.53 (0.87-1.13) H 11/11/19 22:46 D-Dimer 6966.37 ng/mlDDU (0-234) H 11/11/19 22:46 Abnormal lab findings: Abnormal Labs 11/11/19 11/11/19 11/11/19 22:46 22:46 22:46 WBC 4.0 L RBC 2.50 L Hgb 6.8 L Hct 20.3 L MCH 27 L RDW 16.9 H Plt Count 52 L Lymph % (Auto) 4.3 L [place] % (Auto) Lymph # 0.2 L Seg Neutrophils % 89.2 H Seg Neuts % (Manual) Lymphocytes % (Manual) Lymphocytes # (Manual) PT INR D-Dimer ABG pH ABG pO2 ABG O2 Saturation ABG Hemoglobin Oxyhemoglobin Sodium 133 L Potassium 3.2 L Chloride 94.6 L Carbon Dioxide Creatinine Glucose 164 H Lactic Acid 3.00 H* Calcium 7.0 L Ferritin Alkaline Phosphatase 143 H Lactate Dehydrogenase C-Reactive Protein NT-Pro-B Natriuret Pep Total Protein 5.8 L Albumin 2.3 L Crossmatch 11/11/19 11/11/19 11/11/19 22:46 22:46 22:46 WBC RBC Hgb Hct MCH RDW Plt Count Lymph % (Auto) [place] % (Auto) Lymph # Seg Neutrophils % Seg Neuts % (Manual) Lymphocytes % (Manual) Lymphocytes # (Manual) PT 18.7 H INR 1.53 H D-Dimer 6966.37 H ABG pH ABG pO2 ABG O2 Saturation ABG Hemoglobin Oxyhemoglobin Sodium Potassium Chloride Carbon Dioxide Creatinine Glucose 163 H Lactic Acid Calcium Ferritin 272.3 H Alkaline Phosphatase Lactate Dehydrogenase 193 H C-Reactive Protein 9.60 H NT-Pro-B Natriuret Pep Total Protein Albumin Crossmatch 11/11/19 11/12/19 11/12/19 23:52 05:12 06:42 WBC RBC 2.44 L Hgb 6.6 L 6.0 L Hct 20.2 L 17.7 L* MCH 27 L RDW 16.8 H Plt Count 49 L Lymph % (Auto) [place] % (Auto) Lymph # Seg Neutrophils % Seg Neuts % (Manual) Lymphocytes % (Manual) Lymphocytes # (Manual) PT INR D-Dimer ABG pH ABG pO2 ABG O2 Saturation ABG Hemoglobin Oxyhemoglobin Sodium Potassium Chloride Carbon Dioxide Creatinine Glucose Lactic Acid 3.00 H* Calcium Ferritin Alkaline Phosphatase Lactate Dehydrogenase C-Reactive Protein NT-Pro-B Natriuret Pep Total Protein Albumin Crossmatch 11/12/19 11/12/19 11/13/19 06:43 19:37 00:31 WBC 3.3 L RBC 3.19 L Hgb 8.9 L 9.2 L Hct 26.6 L D 26.9 L MCH RDW 16.1 H Plt Count 60 L Lymph % (Auto) 11.6 L [place] % (Auto) Lymph # 0.4 L Seg Neutrophils % 85.4 H Seg Neuts % (Manual) Lymphocytes % (Manual) Lymphocytes # (Manual) PT INR D-Dimer ABG pH ABG pO2 ABG O2 Saturation ABG Hemoglobin Oxyhemoglobin Sodium Potassium Chloride Carbon Dioxide Creatinine Glucose Lactic Acid Calcium Ferritin Alkaline Phosphatase Lactate Dehydrogenase C-Reactive Protein NT-Pro-B Natriuret Pep Total Protein Albumin Crossmatch See Detail 11/13/19 11/14/19 11/14/19 00:31 08:49 10:14 WBC RBC Hgb Hct MCH RDW Plt Count Lymph % (Auto) [place] % (Auto) Lymph # Seg Neutrophils % Seg Neuts % (Manual) Lymphocytes % (Manual) Lymphocytes # (Manual) PT INR D-Dimer ABG pH 7.548 H ABG pO2 48.1 L ABG O2 Saturation 88.1 L ABG Hemoglobin 9.2 L Oxyhemoglobin 86.0 L Sodium Potassium Chloride Carbon Dioxide 21 L Creatinine Glucose Lactic Acid Calcium 6.9 L Ferritin Alkaline Phosphatase 139 H Lactate Dehydrogenase C-Reactive Protein NT-Pro-B Natriuret Pep Total Protein 5.1 L Albumin 2.3 L 2.0 L Crossmatch 11/14/19 11/14/19 11/14/19 10:14 10:14 10:14 WBC RBC 3.04 L Hgb 8.6 L Hct 25.5 L MCH RDW 16.7 H Plt Count 50 L Lymph % (Auto) [place] % (Auto) 9.3 H Lymph # Seg Neutrophils % 82.6 H Seg Neuts % (Manual) 88.0 H Lymphocytes % (Manual) 6.0 L Lymphocytes # (Manual) 0.5 L PT INR D-Dimer ABG pH ABG pO2 ABG O2 Saturation ABG Hemoglobin Oxyhemoglobin Sodium Potassium 2.6 L* D Chloride Carbon Dioxide 18 L Creatinine 0.5 L Glucose 111 H Lactic Acid Calcium 6.6 L Ferritin Alkaline Phosphatase 134 H Lactate Dehydrogenase C-Reactive Protein 9.80 H NT-Pro-B Natriuret Pep Total Protein 5.3 L Albumin 1.8 L Crossmatch 11/14/19 11/14/19 11/15/19 10:14 14:50 01:37 WBC RBC 2.82 L Hgb 8.0 L Hct 23.8 L MCH RDW 16.8 H Plt Count 52 L Lymph % (Auto) 12.2 L [place] % (Auto) Lymph # 0.7 L Seg Neutrophils % 83.3 H Seg Neuts % (Manual) Lymphocytes % (Manual) Lymphocytes # (Manual) PT INR D-Dimer ABG pH ABG pO2 ABG O2 Saturation ABG Hemoglobin Oxyhemoglobin Sodium Potassium Chloride Carbon Dioxide Creatinine Glucose Lactic Acid Calcium Ferritin 250.2 H Alkaline Phosphatase Lactate Dehydrogenase 333 H C-Reactive Protein 10.00 H NT-Pro-B Natriuret Pep 08928 H Total Protein Albumin Crossmatch 11/15/19 11/15/19 01:37 04:10 WBC RBC Hgb Hct MCH RDW Plt Count Lymph % (Auto) [place] % (Auto) Lymph # Seg Neutrophils % Seg Neuts % (Manual) Lymphocytes % (Manual) Lymphocytes # (Manual) PT INR D-Dimer ABG pH 7.523 H ABG pO2 ABG O2 Saturation ABG Hemoglobin 7.9 L Oxyhemoglobin Sodium Potassium 3.5 L D Chloride 107.4 H Carbon Dioxide 19 L Creatinine 0.5 L Glucose 178 H Lactic Acid Calcium 6.8 L Ferritin Alkaline Phosphatase Lactate Dehydrogenase C-Reactive Protein NT-Pro-B Natriuret Pep Total Protein 5.7 L Albumin 2.1 L Crossmatch - Diagnostic Findings Chest x-ray: image reviewed Assessment and Plan 59 y/o female with bilateral lung infiltrates, bilateral pleural effusions and acute respiratory failure, concern for infectious etiology coupled with volume overload. 1. sTable on nasal cannula now 2. Reviewed ID and Cardiology notes. 3. Suggest diuresis given CT findings of cirrhosis, bilateral effusions and elevated BNP 4. Official read is up for CTA, no PE 5. Agree with steroids especially given the fact patient refuses COVID testing, Defer to ID if remdesivir is an option without proper data 6. Needs GI work up of cirrhosis 7. Would also benefit from 2D echo to eval for pulmonary hypertension. 8. Stable for transfer back to floor, suggest COVID floor with remote tele.
--- NOTE | 2019-11-15 15:46 | Progress Note ---
Assessment and Plan Chest CTA neg for acute PE. Obtain echo pending COVID-19 status. Pt weaned off Cardizem drip. Will hold off on initiation of AV semaj blocking agents for now given borderline BPs. Will consider initiation of OAC when H/H stable. Lillian Samuels Pt seen in conjunction with Dr. ELBA Rueda, who agrees with the assessment and plan of care. - Patient Problems (1) Acute respiratory failure with hypoxia Current Visit: Yes Status: Acute (2) PNA (pneumonia) Current Visit: Yes Status: Suspected (3) Atrial fibrillation with RVR Current Visit: Yes Status: Acute Plan to address problem: New onset (4) Hypokalemia Current Visit: Yes Status: Acute (5) Anemia Current Visit: Yes Status: Acute Plan to address problem: S/p pRBCs (6) Pancytopenia Current Visit: Yes Status: Acute (7) D-dimer, elevated Current Visit: Yes Status: Acute (8) Cirrhosis Current Visit: Yes Status: Acute (9) Polysubstance abuse Current Visit: Yes Status: Chronic Subjective Date of service: 11/15/19 Principal diagnosis: Sepsis, Acute Resp Fail, AF RVR Interval history: Pt noted to be tachypnic, c/o SOB. Pt refuses BiPAP. No acute events reported. Tele reviewed - NSR 80-90s w/intermitted episodes of AF. Objective Last Vital Signs Temp 98.7 F 11/15/19 08:00 Pulse 87 11/15/19 15:01 Resp 15 11/15/19 15:01 BP 115/53 11/15/19 15:01 Pulse Ox 99 11/15/19 15:01 - Physical Examination Narrative exam: Exam deferred due to suspected COVID-19 infection (exposure reduction and PPE conservation). Recommendations have been provided based on chart review and provider discussions. 25 mins spent in discussions with pt/family via phone, chart review, plan formation, and consultation with referring provider. - Labs and Meds Cardiac Enzymes 11/14/19 11/15/19 Range/Units 14:50 01:37 AST 11 (5-40) units/L Lactate Dehydrogenase 333 H (91-180) units/L CBC 11/15/19 Range/Units 01:37 WBC 5.7 (4.5-11.0) K/mm3 RBC 2.82 L (3.65-5.03) M/mm3 Hgb 8.0 L (10.1-14.3) gm/dl Hct 23.8 L (30.3-42.9) % Plt Count 52 L (140-440) K/mm3 Lymph # 0.7 L (1.2-5.4) K/mm3 [place] # 0.2 (0.0-0.8) K/mm3 Eos # 0.0 (0.0-0.4) K/mm3 Baso # 0.0 (0.0-0.1) K/mm3 Comprehensive Metabolic Panel 11/15/19 Range/Units 01:37 Sodium 139 (137-145) mmol/L Potassium 3.5 L D (3.6-5.0) mmol/L Chloride 107.4 H (98-107) mmol/L Carbon Dioxide 19 L (22-30) mmol/L BUN 16 (7-17) mg/dL Creatinine 0.5 L (0.6-1.2) mg/dL Glucose 178 H (65-100) mg/dL Calcium 6.8 L (8.4-10.2) mg/dL AST 11 (5-40) units/L ALT 9 (7-56) units/L Alkaline Phosphatase 109 (35-129) units/L Total Protein 5.7 L (6.3-8.2) g/dL Albumin 2.1 L (3.9-5) g/dL - Imaging and Cardiology EKG: report reviewed, image reviewed Echo: pending, report reviewed (11/2016 - EF 60%, mild-mod AI) - EKG Supraventricular dysrhythmia: atrial fibrillation
[2019-11-16 02:43] LABS: Basophils % (Auto) 0.4 % (0.0-1.8); Hematocrit 23.7 % (30.3-42.9); Lymphocytes % (Auto) 10.7 % (13.4-35.0); Mean Corpuscular HGB Conc 34 % (30-34); Mean Corpuscular Volume 85 fl (79-97); Monocytes # (Auto) 0.6 K/mm3 (0.0-0.8); Monocytes % (Auto) 6.4 % (0.0-7.3); Red Cell Distribution Width 17.5 % (13.2-15.2)
[2019-11-16 02:52] LABS: Alanine Aminotransferase 7 units/L (7-56); Albumin 2.3 g/dL (3.9-5); Blood Urea Nitrogen 17 mg/dL (7-17); Calcium 7.3 mg/dL (8.4-10.2); Hemolysis Index 2
[2019-11-16 02:54] LABS: BUN/Creatinine Ratio 34
[2019-11-16 02:58] LABS: Platelet Count 61 K/mm3 (140-440)
[2019-11-16] MEDS: VANCOMYCIN/NS 1 GM/250 ML 1 GM/250 ML BAG IV SCH ×2 (04:46→17:30)
[2019-11-16] MEDS: CEFEPIME/NS 2 GM/100 ML 2 GM/100 ML BAG IV SCH ×3 (05:31→22:23)
[2019-11-16] MEDS: LORazepam 2 MG/ML VIAL IV PRN ×3 (06:33→22:24)
--- NOTE | 2019-11-16 08:50 | Progress Note ---
Assessment and Plan 59 y/o female with bilateral lung infiltrates, bilateral pleural effusions and acute respiratory failure, concern for infectious etiology coupled with volume overload. 1. sTable on nasal cannula now, wean for sats >88% 2. Reviewed ID and Cardiology notes. 3. Suggest diuresis given CT findings of cirrhosis, bilateral effusions and el evated BNP 4. Official read is up for CTA, no PE 5. Agree with steroids especially given the fact patient refuses COVID testing, Defer to ID if remdesivir is an option without proper data 6. Needs GI work up of cirrhosis 7. Would also benefit from 2D echo to eval for pulmonary hypertension. 8. Will follow Subjective Date of service: 11/16/19 Principal diagnosis: Sepsis, Acute Resp Fail, AF RVR Interval history: Transitioned to the floor. Pulm status stable. Not diuresed. Still positive fluid balance. Objective Vital Signs - 12hr 11/15/19 11/16/19 11/16/19 22:15 00:00 04:00 Temperature Pulse Rate 81 81 Respiratory Rate Blood Pressure O2 Sat by Pulse 97 Oximetry 11/16/19 04:49 Temperature 98.5 F Pulse Rate Respiratory 16 Rate Blood Pressure 116/53 O2 Sat by Pulse Oximetry CBC and BMP: 11/16/19 01:53 11/16/19 01:53 ABG, PT/INR, D-dimer: ABG ABG pH 7.523 pH Units (7.350-7.450) H 11/15/19 04:10 ABG pCO2 25.8 mm Hg 11/15/19 04:10 ABG pO2 86.2 mm Hg (80.0-90.0) 11/15/19 04:10 ABG O2 Saturation 97.5 % (95.0-99.0) 11/15/19 04:10 PT/INR, D-dimer PT 18.7 Sec. (12.2-14.9) H 11/11/19 22:46 INR 1.53 (0.87-1.13) H 11/11/19 22:46 D-Dimer 6966.37 ng/mlDDU (0-234) H 11/11/19 22:46 Abnormal lab findings: Abnormal Labs 11/11/19 11/11/19 11/11/19 22:46 22:46 22:46 WBC 4.0 L RBC 2.50 L Hgb 6.8 L Hct 20.3 L MCH 27 L RDW 16.9 H Plt Count 52 L Lymph % (Auto) 4.3 L [place] % (Auto) Lymph # 0.2 L Seg Neutrophils % 89.2 H Seg Neuts % (Manual) Lymphocytes % (Manual) Lymphocytes # (Manual) PT INR D-Dimer ABG pH ABG pO2 ABG O2 Saturation ABG Hemoglobin Oxyhemoglobin Sodium 133 L Potassium 3.2 L Chloride 94.6 L Carbon Dioxide Creatinine Glucose 164 H Lactic Acid 3.00 H* Calcium 7.0 L Ferritin Alkaline Phosphatase 143 H Lactate Dehydrogenase C-Reactive Protein NT-Pro-B Natriuret Pep Total Protein 5.8 L Albumin 2.3 L Crossmatch 11/11/19 11/11/19 11/11/19 22:46 22:46 22:46 WBC RBC Hgb Hct MCH RDW Plt Count Lymph % (Auto) [place] % (Auto) Lymph # Seg Neutrophils % Seg Neuts % (Manual) Lymphocytes % (Manual) Lymphocytes # (Manual) PT 18.7 H INR 1.53 H D-Dimer 6966.37 H ABG pH ABG pO2 ABG O2 Saturation ABG Hemoglobin Oxyhemoglobin Sodium Potassium Chloride Carbon Dioxide Creatinine Glucose 163 H Lactic Acid Calcium Ferritin 272.3 H Alkaline Phosphatase Lactate Dehydrogenase 193 H C-Reactive Protein 9.60 H NT-Pro-B Natriuret Pep Total Protein Albumin Crossmatch 11/11/19 11/12/19 11/12/19 23:52 05:12 06:42 WBC RBC 2.44 L Hgb 6.6 L 6.0 L Hct 20.2 L 17.7 L* MCH 27 L RDW 16.8 H Plt Count 49 L Lymph % (Auto) [place] % (Auto) Lymph # Seg Neutrophils % Seg Neuts % (Manual) Lymphocytes % (Manual) Lymphocytes # (Manual) PT INR D-Dimer ABG pH ABG pO2 ABG O2 Saturation ABG Hemoglobin Oxyhemoglobin Sodium Potassium Chloride Carbon Dioxide Creatinine Glucose Lactic Acid 3.00 H* Calcium Ferritin Alkaline Phosphatase Lactate Dehydrogenase C-Reactive Protein NT-Pro-B Natriuret Pep Total Protein Albumin Crossmatch 11/12/19 11/12/19 11/13/19 06:43 19:37 00:31 WBC 3.3 L RBC 3.19 L Hgb 8.9 L 9.2 L Hct 26.6 L D 26.9 L MCH RDW 16.1 H Plt Count 60 L Lymph % (Auto) 11.6 L [place] % (Auto) Lymph # 0.4 L Seg Neutrophils % 85.4 H Seg Neuts % (Manual) Lymphocytes % (Manual) Lymphocytes # (Manual) PT INR D-Dimer ABG pH ABG pO2 ABG O2 Saturation ABG Hemoglobin Oxyhemoglobin Sodium Potassium Chloride Carbon Dioxide Creatinine Glucose Lactic Acid Calcium Ferritin Alkaline Phosphatase Lactate Dehydrogenase C-Reactive Protein NT-Pro-B Natriuret Pep Total Protein Albumin Crossmatch See Detail 11/13/19 11/14/19 11/14/19 00:31 08:49 10:14 WBC RBC Hgb Hct MCH RDW Plt Count Lymph % (Auto) [place] % (Auto) Lymph # Seg Neutrophils % Seg Neuts % (Manual) Lymphocytes % (Manual) Lymphocytes # (Manual) PT INR D-Dimer ABG pH 7.548 H ABG pO2 48.1 L ABG O2 Saturation 88.1 L ABG Hemoglobin 9.2 L Oxyhemoglobin 86.0 L Sodium Potassium Chloride Carbon Dioxide 21 L Creatinine Glucose Lactic Acid Calcium 6.9 L Ferritin Alkaline Phosphatase 139 H Lactate Dehydrogenase C-Reactive Protein NT-Pro-B Natriuret Pep Total Protein 5.1 L Albumin 2.3 L 2.0 L Crossmatch 11/14/19 11/14/19 11/14/19 10:14 10:14 10:14 WBC RBC 3.04 L Hgb 8.6 L Hct 25.5 L MCH RDW 16.7 H Plt Count 50 L Lymph % (Auto) [place] % (Auto) 9.3 H Lymph # Seg Neutrophils % 82.6 H Seg Neuts % (Manual) 88.0 H Lymphocytes % (Manual) 6.0 L Lymphocytes # (Manual) 0.5 L PT INR D-Dimer ABG pH ABG pO2 ABG O2 Saturation ABG Hemoglobin Oxyhemoglobin Sodium Potassium 2.6 L* D Chloride Carbon Dioxide 18 L Creatinine 0.5 L Glucose 111 H Lactic Acid Calcium 6.6 L Ferritin Alkaline Phosphatase 134 H Lactate Dehydrogenase C-Reactive Protein 9.80 H NT-Pro-B Natriuret Pep Total Protein 5.3 L Albumin 1.8 L Crossmatch 11/14/19 11/14/19 11/15/19 10:14 14:50 01:37 WBC RBC 2.82 L Hgb 8.0 L Hct 23.8 L MCH RDW 16.8 H Plt Count 52 L Lymph % (Auto) 12.2 L [place] % (Auto) Lymph # 0.7 L Seg Neutrophils % 83.3 H Seg Neuts % (Manual) Lymphocytes % (Manual) Lymphocytes # (Manual) PT INR D-Dimer ABG pH ABG pO2 ABG O2 Saturation ABG Hemoglobin Oxyhemoglobin Sodium Potassium Chloride Carbon Dioxide Creatinine Glucose Lactic Acid Calcium Ferritin 250.2 H Alkaline Phosphatase Lactate Dehydrogenase 333 H C-Reactive Protein 10.00 H NT-Pro-B Natriuret Pep 89636 H Total Protein Albumin Crossmatch 11/15/19 11/15/19 11/16/19 01:37 04:10 01:53 WBC RBC 2.80 L Hgb 8.0 L Hct 23.7 L MCH RDW 17.5 H Plt Count 61 L Lymph % (Auto) 10.7 L [place] % (Auto) Lymph # 1.0 L Seg Neutrophils % 82.5 H Seg Neuts % (Manual) Lymphocytes % (Manual) Lymphocytes # (Manual) PT INR D-Dimer ABG pH 7.523 H ABG pO2 ABG O2 Saturation ABG Hemoglobin 7.9 L Oxyhemoglobin Sodium Potassium 3.5 L D Chloride 107.4 H Carbon Dioxide 19 L Creatinine 0.5 L Glucose 178 H Lactic Acid Calcium 6.8 L Ferritin Alkaline Phosphatase Lactate Dehydrogenase C-Reactive Protein NT-Pro-B Natriuret Pep Total Protein 5.7 L Albumin 2.1 L Crossmatch 11/16/19 01:53 WBC RBC Hgb Hct MCH RDW Plt Count Lymph % (Auto) [place] % (Auto) Lymph # Seg Neutrophils % Seg Neuts % (Manual) Lymphocytes % (Manual) Lymphocytes # (Manual) PT INR D-Dimer ABG pH ABG pO2 ABG O2 Saturation ABG Hemoglobin Oxyhemoglobin Sodium Potassium Chloride 108.3 H Carbon Dioxide 19 L Creatinine 0.5 L Glucose 118 H Lactic Acid Calcium 7.3 L Ferritin Alkaline Phosphatase Lactate Dehydrogenase C-Reactive Protein NT-Pro-B Natriuret Pep Total Protein 5.8 L Albumin 2.3 L Crossmatch
[2019-11-16] MEDS: ACETAMINOPHEN 325 MG TAB PO PRN ×2 (09:34→20:28)
[2019-11-16] MEDS: DEXAMETHASONE 4 MG TAB PO SCH (09:35)
--- NOTE | 2019-11-16 12:05 | Progress Note ---
Assessment and Plan Chest CTA neg for acute PE, shows cirrhosis, bilateral effusions and elevated BNP. Will initiate gentle diuresis. Pt is refusing COVID-19 testing. Obtain echo pending COVID-19 status. Pt currently in NSR on telemetry, HR 80s. Initiate PO lopressor. No systemic AC at this time in setting of severe anemia at presentation, thrombocytopenia, cirrhosis. Recommend further eval/management per primary team - ? GI consultation. Pt seen in conjunction with Dr. Noemi Rueda who agrees with the assessment and plan of care. - Patient Problems (1) Acute respiratory failure with hypoxia Current Visit: Yes Status: Acute (2) PNA (pneumonia) Current Visit: Yes Status: Suspected (3) Atrial fibrillation with RVR Current Visit: Yes Status: Acute Plan to address problem: New onset (4) Hypokalemia Current Visit: Yes Status: Acute (5) Symptomatic anemia Current Visit: Yes Status: Acute Plan to address problem: S/p pRBCs (6) Thrombocytopenia Current Visit: Yes Status: Acute (7) Cirrhosis Current Visit: Yes Status: Acute (8) Polysubstance abuse Current Visit: Yes Status: Chronic Subjective Date of service: 11/16/19 Principal diagnosis: Sepsis, Acute Resp Fail, AF RVR Interval history: per primary RN, pt impulsive and aggressive this AM. in SR on tele HR 80s. Objective Last Vital Signs Temp 98.5 F 11/16/19 04:49 Pulse 81 11/16/19 04:00 Resp 16 11/16/19 04:49 BP 116/53 11/16/19 04:49 Pulse Ox 97 11/15/19 22:15 - Physical Examination Narrative exam: agree with physical examination per primary team - Labs and Meds Cardiac Enzymes 11/16/19 Range/Units 01:53 AST 11 (5-40) units/L CBC 11/16/19 Range/Units 01:53 WBC 9.0 (4.5-11.0) K/mm3 RBC 2.80 L (3.65-5.03) M/mm3 Hgb 8.0 L (10.1-14.3) gm/dl Hct 23.7 L (30.3-42.9) % Plt Count 61 L (140-440) K/mm3 Lymph # 1.0 L (1.2-5.4) K/mm3 [place] # 0.6 (0.0-0.8) K/mm3 Eos # 0.0 (0.0-0.4) K/mm3 Baso # 0.0 (0.0-0.1) K/mm3 Comprehensive Metabolic Panel 11/16/19 Range/Units 01:53 Sodium 140 (137-145) mmol/L Potassium 3.8 (3.6-5.0) mmol/L Chloride 108.3 H (98-107) mmol/L Carbon Dioxide 19 L (22-30) mmol/L BUN 17 (7-17) mg/dL Creatinine 0.5 L (0.6-1.2) mg/dL Glucose 118 H (65-100) mg/dL Calcium 7.3 L (8.4-10.2) mg/dL AST 11 (5-40) units/L ALT 7 (7-56) units/L Alkaline Phosphatase 102 (35-129) units/L Total Protein 5.8 L (6.3-8.2) g/dL Albumin 2.3 L (3.9-5) g/dL - Imaging and Cardiology EKG: report reviewed, image reviewed Echo: pending, report reviewed (11/2016 - EF 60%, mild-mod AI)
--- NOTE | 2019-11-16 14:15 | Progress Note ---
Assessment and Plan Assessment and plan: 59-year-old female with a medical history of drug abuse presenting to the hospital with chief complaint of fever and malaise for about 3 to 4 weeks prior to presentation. In the ED, her labs showed pancytopenia with Hb 6. She was admitted to the hospital and was transfused. 11/12. Patient seen and examined at bedside this morning. Had 103F last night. She is on ceftriaxone - will switch to cefepime and vancomycin for broader coverage. Will send procalcitonin, ESR, CRP, hep panel, TSH, Vitamin B12, folate, HIV etc. Patient refuses to have coronavirus test. 11/13. Overnight, patient had episode of atrial fibrillation with RVR with heart rate in the 150s up to 190s. Patient was started on Cardizem drip after giving metoprolol IV and transferred to the [facility]. I saw patient and examined at bedside today. Patient is tachypneic with respiratory rate in the 30s, tachycardic with heart rate in the 150s. She is on Cardizem drip 15mg/hr. Cardiology has been consulted this morning. Added digox in due to elevated heart rate. Stat chest x-ray ordered showed worsening bilateral pneumonia. Patient is currently on vancomycin, cefepime. Added azithromycin for now. ID has been consulted. Stat ABG ordered to evaluate respiratory status. Results still pending. Ultrasound of the lower extremities ordered yesterday for elevated d-dimer still pending at this time. Will give patient Lovenox 60 mg twice daily for now. CTA chest ordered to rule out possible PE. PRoBNP ordered. 11/14. Patient seen and examined at bedside this morning. Patient is slightly better today. Her heart rate is better controlled. Cardiology is on board. Patient agrees to get a COVID-19 test-RN informed to get a test this morning. She is asking when she can go home. Labs reviewed - ProBNP elevated. Will need diuresis 11/15. She is still hypoxic. COVID-19 pending. lasix 40 mg daily ordered. Continue to monitor I/O. Cardiology on board. CT shows cirrhosis and splenomegaly. GI consulted for evaluation of liver cirrhosis. She has a history of IV drug abuse. - Patient Problems (1) Acute hypoxemic respiratory failure Current Visit: Yes Status: Acute Plan to address problem: Has bilateral pneumonia-possible COVID-19. Patient continues to refuse COVID-19 test Patient started on dexamethasone 6 mg IV daily Patient is currently on broad-spectrum antibiotics ID on board (2) Sepsis Current Visit: Yes Status: Acute Plan to address problem: Patient had a temperature 103 F 8/27. Urinalysis and chest x-ray - negative for any infection on admission Repeat chest x-ray showed worsening bilateral pneumonia Continues cefepime and vancomycin COVID-19 test has been ordered patient continues to refuse. On dexamethasone 6 mg IV daily for now ID recommendations appreciated (3) Atrial fibrillation Current Visit: Yes Status: Acute Plan to address problem: Cardiology on board. Needs echocardiogram (4) Anemia Current Visit: Yes Status: Acute Plan to address problem: Now status post transfusion of PRBCs Continue to monitor hemoglobin No evidence of GI bleed. (5) Pancytopenia Current Visit: Yes Status: Acute Plan to address problem: Possible multiple etiologies-need to rule out any ongoing infection-hepatitis pa yari, COVID-19 test, HIV ordered Patient continues to refuse COVID-19 test. Continue to monitor blood counts (6) D-dimer, elevated Current Visit: Yes Status: Acute Plan to address problem: CTA chect shows no PE (7) Hypokalemia Current Visit: Yes Status: Acute Plan to address problem: Continue to monitor potassium. Potassium supplements as ordered (8) Polysubstance abuse Current Visit: Yes Status: Chronic Plan to address problem: Drug abuse counseling Needs to have rehab program set up at discharge (9) Cirrhosis Current Visit: Yes Status: Acute Plan to address problem: Hepatitis panel ordered. GI consulted Needs follow up with GI for varices surviellance (10) DVT prophylaxis Current Visit: Yes Status: Acute Plan to address problem: Lovenox if platelets >50. SCDs (11) Advance care planning Current Visit: Yes Status: Acute Plan to address problem: May need placement. PT pending. History Interval history: See assessment and plan Hospitalist Physical - Constitutional Vitals: Temp Pulse Resp BP Pulse Ox 98.6 F 85 28 H 119/56 97 11/16/19 12:38 11/16/19 12:38 11/16/19 12:38 11/16/19 12:38 11/16/19 12:38 General appearance: Present: no acute distress - EENT Eyes: Present: PERRL - Neck Neck: Present: supple - Respiratory Respiratory: bilateral: rales - Cardiovascular Rhythm: regular Heart Sounds: Present: S1 & S2 - Extremities Extremities: No edema - Abdominal General gastrointestinal: soft, non-tender, normal bowel sounds - Neurologic Neurologic: CNII-XII intact HEART Score - HEART Score Age: 45-65 Risk factors: No known risk factors Troponin: < normal limit - Critical Actions Critical Actions: 0-3 pts:0.9-1.7%risk of adverse cardiac event.Candidate for discharge Results - Labs CBC & Chem 7: 11/16/19 01:53 11/16/19 01:53 Labs: Laboratory Last Values WBC 9.0 K/mm3 (4.5-11.0) 11/16/19 01:53 RBC 2.80 M/mm3 (3.65-5.03) L 11/16/19 01:53 Hgb 8.0 gm/dl (10.1-14.3) L 11/16/19 01:53 Hct 23.7 % (30.3-42.9) L 11/16/19 01:53 MCV 85 fl (79-97) 11/16/19 01:53 MCH 29 pg (28-32) 11/16/19 01:53 MCHC 34 % (30-34) 11/16/19 01:53 RDW 17.5 % (13.2-15.2) H 11/16/19 01:53 Plt Count 61 K/mm3 (140-440) L 11/16/19 01:53 Lymph % (Auto) 10.7 % (13.4-35.0) L 11/16/19 01:53 Pickett % (Auto) 6.4 % (0.0-7.3) 11/16/19 01:53 Eos % (Auto) 0.0 % (0.0-4.3) 11/16/19 01:53 Baso % (Auto) 0.4 % (0.0-1.8) 11/16/19 01:53 Lymph # 1.0 K/mm3 (1.2-5.4) L 11/16/19 01:53 Pickett # 0.6 K/mm3 (0.0-0.8) 11/16/19 01:53 Eos # 0.0 K/mm3 (0.0-0.4) 11/16/19 01:53 Baso # 0.0 K/mm3 (0.0-0.1) 11/16/19 01:53 Add Manual Diff Complete 11/14/19 10:14 Total Counted 100 11/14/19 10:14 Seg Neutrophils % 82.5 % (40.0-70.0) H 11/16/19 01:53 Seg Neuts % (Manual) 88.0 % (40.0-70.0) H 11/14/19 10:14 Band Neutrophils % 0 % 11/14/19 10:14 Lymphocytes % (Manual) 6.0 % (13.4-35.0) L 11/14/19 10:14 Reactive Lymphs % (Man) 0 % 11/14/19 10:14 Monocytes % (Manual) 6.0 % (0.0-7.3) 11/14/19 10:14 Eosinophils % (Manual) 0 % (0.0-4.3) 11/14/19 10:14 Basophils % (Manual) 0 % (0.0-1.8) 11/14/19 10:14 Metamyelocytes % 0 % 11/14/19 10:14 Myelocytes % 0 % 11/14/19 10:14 Promyelocytes % 0 % 11/14/19 10:14 Blast Cells % 0 % 11/14/19 10:14 Nucleated RBC % Not Reportable 11/14/19 10:14 Seg Neutrophils # 7.4 K/mm3 (1.8-7.7) 11/16/19 01:53 Seg Neutrophils # Man 7.0 K/mm3 (1.8-7.7) 11/14/19 10:14 Band Neutrophils # 0.0 K/mm3 11/14/19 10:14 Lymphocytes # (Manual) 0.5 K/mm3 (1.2-5.4) L 11/14/19 10:14 Abs React Lymphs (Man) 0.0 K/mm3 11/14/19 10:14 Monocytes # (Manual) 0.5 K/mm3 (0.0-0.8) 11/14/19 10:14 Eosinophils # (Manual) 0.0 K/mm3 (0.0-0.4) 11/14/19 10:14 Basophils # (Manual) 0.0 K/mm3 (0.0-0.1) 11/14/19 10:14 Metamyelocytes # 0.0 K/mm3 11/14/19 10:14 Myelocytes # 0.0 K/mm3 11/14/19 10:14 Promyelocytes # 0.0 K/mm3 11/14/19 10:14 Blast Cells # 0.0 K/mm3 11/14/19 10:14 WBC Morphology Not Reportable 11/14/19 10:14 Hypersegmented Neuts Not Reportable 11/14/19 10:14 Hyposegmented Neuts Not Reportable 11/14/19 10:14 Hypogranular Neuts Not Reportable 11/14/19 10:14 Smudge Cells Not Reportable 11/14/19 10:14 Toxic Granulation Not Reportable 11/14/19 10:14 Toxic Vacuolation 1+ 11/14/19 10:14 Dohle Bodies Not Reportable 11/14/19 10:14 Pelger-Huet Anomaly Not Reportable 11/14/19 10:14 Sherri Rods Not Reportable 11/14/19 10:14 Platelet Estimate Consistent w auto 11/14/19 10:14 Clumped Platelets Not Reportable 11/14/19 10:14 Plt Clumps, EDTA Not Reportable 11/14/19 10:14 Large Platelets Not Reportable 11/14/19 10:14 Giant Platelets Not Reportable 11/14/19 10:14 Platelet Satelliting Not Reportable 11/14/19 10:14 Plt Morphology Comment Not Reportable 11/14/19 10:14 RBC Morphology Not Reportable 11/14/19 10:14 Dimorphic RBCs Not Reportable 11/14/19 10:14 Polychromasia 1+ 11/14/19 10:14 Hypochromasia Not Reportable 11/14/19 10:14 Poikilocytosis Not Reportable 11/14/19 10:14 Anisocytosis 1+ 11/14/19 10:14 Microcytosis Not Reportable 11/14/19 10:14 Macrocytosis Not Reportable 11/14/19 10:14 Spherocytes Not Reportable 11/14/19 10:14 Pappenheimer Bodies Not Reportable 11/14/19 10:14 Sickle Cells Not Reportable 11/14/19 10:14 Target Cells Not Reportable 11/14/19 10:14 Tear Drop Cells Not Reportable 11/14/19 10:14 Ovalocytes 1+ 11/14/19 10:14 Helmet Cells Not Reportable 11/14/19 10:14 Harden-Woodway Bodies Not Reportable 11/14/19 10:14 Grambling Rings Not Reportable 11/14/19 10:14 Felecia Cells Not Reportable 11/14/19 10:14 Bite Cells Not Reportable 11/14/19 10:14 Crenated Cell Not Reportable 11/14/19 10:14 Elliptocytes Few 11/14/19 10:14 Acanthocytes (Spur) Not Reportable 11/14/19 10:14 Rouleaux Not Reportable 11/14/19 10:14 Hemoglobin C Crystals Not Reportable 11/14/19 10:14 Schistocytes Not Reportable 11/14/19 10:14 Malaria parasites Not Reportable 11/14/19 10:14 ESR 61 mm/Hr (0-20) 11/14/19 10:14 Gallito Bodies Not Reportable 11/14/19 10:14 Hem Pathologist Commnt No 11/14/19 10:14 PT 18.7 Sec. (12.2-14.9) H 11/11/19 22:46 INR 1.53 (0.87-1.13) H 11/11/19 22:46 D-Dimer 6966.37 ng/mlDDU (0-234) H 11/11/19 22:46 ABG pH 7.523 pH Units (7.350-7.450) H 11/15/19 04:10 ABG pCO2 25.8 mm Hg 11/15/19 04:10 ABG pO2 86.2 mm Hg (80.0-90.0) 11/15/19 04:10 ABG HCO3 20.7 mmol/L (20.0-26.0) 11/15/19 04:10 ABG O2 Saturation 97.5 % (95.0-99.0) 11/15/19 04:10 ABG O2 Content 10.8 (0.0-44) 11/15/19 04:10 ABG Base Excess -1.5 mmol/L (-2.0-3.0) 11/15/19 04:10 ABG Hemoglobin 7.9 gm/dl (12.0-16.0) L 11/15/19 04:10 ABG Carboxyhemoglobin 1.4 % (0.0-5.0) 11/15/19 04:10 ABG Methemoglobin 0.6 % (0.0-1.5) 11/15/19 04:10 Oxyhemoglobin 95.5 % (95.0-99.0) 11/15/19 04:10 FiO2 44 % 11/15/19 04:10 Sodium 140 mmol/L (137-145) 11/16/19 01:53 Potassium 3.8 mmol/L (3.6-5.0) 11/16/19 01:53 Chloride 108.3 mmol/L (98-107) H 11/16/19 01:53 Carbon Dioxide 19 mmol/L (22-30) L 11/16/19 01:53 Anion Gap 17 mmol/L 11/16/19 01:53 BUN 17 mg/dL (7-17) 11/16/19 01:53 Creatinine 0.5 mg/dL (0.6-1.2) L 11/16/19 01:53 Estimated GFR > 60 ml/min 11/16/19 01:53 BUN/Creatinine Ratio 34 % 11/16/19 01:53 Glucose 118 mg/dL (65-100) H 11/16/19 01:53 Lactic Acid 1.40 mmol/L (0.7-2.0) 11/12/19 03:34 Calcium 7.3 mg/dL (8.4-10.2) L 11/16/19 01:53 Ferritin 250.2 ng/mL (10.0-200.0) H 11/14/19 10:14 Total Bilirubin 0.50 mg/dL (0.1-1.2) 11/16/19 01:53 Direct Bilirubin 0.2 mg/dL (0-0.2) 11/14/19 10:14 Indirect Bilirubin 0.5 mg/dL 11/14/19 10:14 AST 11 units/L (5-40) 11/16/19 01:53 ALT 7 units/L (7-56) 11/16/19 01:53 Alkaline Phosphatase 102 units/L (35-129) 11/16/19 01:53 Lactate Dehydrogenase 333 units/L (91-180) H 11/14/19 14:50 C-Reactive Protein 10.00 mg/dL (0.00-1.30) H 11/14/19 14:50 NT-Pro-B Natriuret Pep 50534 pg/mL (0-900) H 11/14/19 14:50 Total Protein 5.8 g/dL (6.3-8.2) L 11/16/19 01:53 Albumin 2.3 g/dL (3.9-5) L 11/16/19 01:53 Albumin/Globulin Ratio 0.7 % 11/16/19 01:53 Vitamin B12 617.7 pg/mL (211-911) 11/14/19 10:13 Folate 8.17 ng/mL (7.3-26.0) 11/14/19 10:14 Procalcitonin 7.39 ng/mL (<0.15) 11/13/19 00:31 TSH 2.790 mlU/mL (0.270-4.200) 11/14/19 10:14 Free T4 1.09 ng/dL (0.76-1.46) 11/14/19 10:14 Urine Color Yellow (Yellow) 11/12/19 00:23 Urine Turbidity Clear (Clear) 11/12/19 00:23 Urine pH 6.0 (5.0-7.0) 11/12/19 00:23 Ur Specific [place]ander 1.006 (1.003-1.030) 11/12/19 00:23 Urine Protein <15 mg/dl mg/dL (Negative) 11/12/19 00:23 Urine Glucose (UA) Neg mg/dL (Negative) 11/12/19 00:23 Urine Ketones Neg mg/dL (Negative) 11/12/19 00:23 Urine Blood Mod (Negative) 11/12/19 00:23 Urine Nitrite Neg (Negative) 11/12/19 00:23 Urine Bilirubin Neg (Negative) 11/12/19 00:23 Urine Urobilinogen 2.0 mg/dL (<2.0) 11/12/19 00:23 Ur Leukocyte Esterase Tr (Negative) 11/12/19 00:23 Urine WBC (Auto) 4.0 /HPF (0.0-6.0) 11/12/19 00:23 Urine RBC (Auto) 3.0 /HPF (0.0-6.0) 11/12/19 00:23 U Epithel Cells (Auto) 6.0 /HPF (0-13.0) 11/12/19 00:23 Vancomycin Trough 15.3 ug/mL (5.0-20.0) 11/15/19 14:40 Urine Opiates Screen Presumptive positive 11/12/19 00:23 Urine Methadone Screen Presumptive negative 11/12/19 00:23 Ur Barbiturates Screen Presumptive negative 11/12/19 00:23 Ur Phencyclidine Scrn Presumptive negative 11/12/19 00:23 Ur Amphetamines Screen Presumptive positive 11/12/19 00:23 U Benzodiazepines Scrn Presumptive negative 11/12/19 00:23 Urine Cocaine Screen Presumptive negative 11/12/19 00:23 U Marijuana (THC) Screen Presumptive negative 11/12/19 00:23 Drugs of Abuse Note Disclamer 11/12/19 00:23 Blood Type O POSITIVE 11/12/19 06:43 Antibody Screen Negative 11/12/19 06:43 Crossmatch See Detail 11/12/19 06:43 Microbiology: Microbiology 11/11/19 22:38 Peripheral/Venous Blood Culture - Preliminary NO GROWTH AFTER 4 DAYS 11/11/19 22:46 Peripheral/Venous Blood Culture - Preliminary NO GROWTH AFTER 4 DAYS Gonzales/IV: Voiding Method External Female Catheter IV Catheter Type [Left INT / Saline Lock Antecubital] IV Catheter Type [Right Upper INT / Saline Lock arm] IV Catheter Type [Right INT / Saline Lock Antecubital] IV Catheter Type [Left Wrist] INT / Saline Lock Active Medications - Current Medications Current Medications: Generic Name Dose Route Start Last Admin Trade Name Freq PRN Reason Stop Dose Admin Acetaminophen 650 mg 11/12/19 01:56 11/16/19 09:34 Tylenol PO 650 mg Q4H PRN Administration Fever >101 Dexamethasone 6 mg 11/16/19 10:00 11/16/19 09:35 Decadron PO 11/23/19 12:00 6 mg DAILY HUSSEIN Administration Furosemide 40 mg 11/16/19 13:00 Lasix IV QDAY HUSSEIN Cefepime HCl 2 gm in 100 mls @ 200 mls/hr 11/13/19 22:00 11/16/19 05:31 Cefepime/Ns 2 Gm/100 Ml IV 200 mls/hr Q8HR HUSSEIN Administration Protocol Vancomycin HCl 1 gm in 250 mls @ 166.667 mls/hr 11/14/19 04:00 11/16/19 04:46 Vancomycin/Ns 1 Gm/250 Ml IV 166.667 mls/hr Q12H HUSSEIN Administration Lorazepam 1 mg 11/12/19 01:53 11/16/19 11:33 Ativan IV 1 mg Q4H PRN Administration Anxiety Metoprolol Tartrate 25 mg 11/16/19 22:00 Metoprolol PO BID HUSSEIN Nutrition/Malnutrition Assess - Dietary Evaluation Nutrition/Malnutrition Findings: Nutrition Notes Start: 11/12/19 10:55 Freq: Status: Active Protocol: Document 11/12/19 10:55 LP (Rec: 11/12/19 12:04 LP [id number]) Nutrition Notes Need for Assessment generated from: neon sign servicer,MST Initial or Follow up Assessment Other Pertinent Diagnosis Polysubstance Abuse, fever, malaise Current Diet Regular Diet Labs/Tests Reviewed Pertinent Medications Reviewed Height 5 ft 6 in Weight 59.9 kg [place] Body Weight (kg) 59.09 BMI 21.3 Weight Status Appropriate Subjective/Other Information Patient screened for malnutrition risk. Spoke with RN on phone, pt ate breakfast but unsure of percentage. Unable to reach pt by phone Burn Absent Trauma Absent GI Symptoms None Food Allergy No Minimum of two criteria No #1 Nutrition Diagnosis Predicted suboptimal energy intake Etiology related to prior hx of polysubstance abuse As Evidenced by Signs and Symptoms admission diagnoses Is patient on ventilator? No Is Patient Ambulatory and/or Out of Bed No [facility] [phone] Calculation Used for Recommendations [facility] Additional Notes Protein Needs (1-1.2 g/kg 60-72g/day fluid 1ml/kcal Nutrition Intervention Change Diet Order: Continue current diet Goal #1 Po intake to meet at least 75% of energy and protein needs. Anticipated Discharge Needs: Unable to identify at this time Follow-Up By: 11/17/19 Additional Comments Follow up for intakes
--- NOTE | 2019-11-16 15:42 | Progress Note ---
Assessment and Plan Cultures: Blood cx 11/11/2019 no growth so far. COVID-19 negative A/P: 59 yo female with history of polysubstance abuse including IV drug/meth admitted on 11/11/2019 due to fever and malaise for several weeks: #Severe Sepsis: with fever, tachycardia, pancytopenia, secondary pneumonia +/- severe anemia. Blood culture so far negative. UA neg. #Acute hypoxic respiratoy failuire: on 4L NC due to pneumonia r/o PE, very high ddimer Ddimer 6966. Noted elevated BNP ? component of heart failure. #Multifocal pneumonia: ? aspiration ? COVID-19 ?PJP. Initial CXR neg. Repeat CXR RML infiltrate. Repeat CXR multifocal pneumonia. It seems more bacterial given very high procal 5.1. COVID-19 markers very high - Ddimer 6966. CRP 9.6. LDH 193. #RVR Afib: triggered by sepsis #Pancytopenia: from sepsis, should r/o HIV-induced myelosuppression. Hg 6.8. S/p PRBC transfusion, r/o GI bleed #Polysubstance abuse: UDS +amph +opioids. #Acute encephalopathy: ? drug intoxication ?sepsis ?hepatic Recs: -F/u blood culture -Recommend repeat COVID-19 test, I have ordered. Normal procalcitonin raising concern for COVID-19 -Obtain HIV, viral hepatitis, RPR -Obtain TTE -Continue cefepime 2 g iV q 12h and vancomycin with PK consult -Obtain MRSA PCR Wood Greenfield MD [facility] M: [phone] O: [phone] F: [phone] Subjective Date of service: 11/16/19 Principal diagnosis: Sepsis, Acute Resp Fail, AF RVR Interval history: Afebrile over last 24 hours, normal white count. Currently on 4 L nasal cannula. Objective - Exam Narrative Exam: Physical Exam: Constitutional: somnolent open eyes in mod resp distress on NC O2 4L Head, Ears, Nose: Normocephalic, atraumatic. Eyes: Conjunctivae/corneas clear. No icterus. No ptosis. Oral: limited Neck: Supple, no meningeal signs Cardiovascular: tachycardic Respiratory: crackles bilaterally GI: Soft, non-tender Musculoskeletal: no edema, deformities Skin: No rash or abscess Hem/Lymphatic: No palpable cervical or supraclavicular nodes. No lymphangitis Psych: somnolent Neurological:somnolent open eyes - Constitutional Vitals: Vital Signs Temp Pulse Resp BP Pulse Ox 98.6 F 85 28 H 119/56 97 11/16/19 12:38 11/16/19 12:38 11/16/19 12:38 11/16/19 12:38 11/16/19 12:38 Temperature -Last 24 Hours Temperature 98.6 F Temperature 98.5 F - Labs CBC & Chem 7: 11/16/19 01:53 11/16/19 01:53 Labs: Abnormal lab results 11/16/19 11/16/19 Range/Units 01:53 01:53 RBC 2.80 L (3.65-5.03) M/mm3 Hgb 8.0 L (10.1-14.3) gm/dl Hct 23.7 L (30.3-42.9) % RDW 17.5 H (13.2-15.2) % Plt Count 61 L (140-440) K/mm3 Lymph % (Auto) 10.7 L (13.4-35.0) % Lymph # 1.0 L (1.2-5.4) K/mm3 Seg Neutrophils % 82.5 H (40.0-70.0) % Chloride 108.3 H (98-107) mmol/L Carbon Dioxide 19 L (22-30) mmol/L Creatinine 0.5 L (0.6-1.2) mg/dL Glucose 118 H (65-100) mg/dL Calcium 7.3 L (8.4-10.2) mg/dL Total Protein 5.8 L (6.3-8.2) g/dL Albumin 2.3 L (3.9-5) g/dL
[2019-11-16] MEDS: FUROSEMIDE 40 MG/4 ML INJ IV SCH (17:29)
--- NOTE | 2019-11-16 18:32 | Vascular Lab Report ---
DUPLEX DOPPLER LOWER EXTREMITY VEINS, BILATERAL INDICATION / CLINICAL INFORMATION: Shortness of breath, Covid. TECHNIQUE: Duplex doppler imaging was performed through the veins of both lower extremities using venous dane hang and other maneuvers. COMPARISON: None available. FINDINGS: RIGHT COMMON FEMORAL VEIN: Negative. RIGHT FEMORAL VEIN: Negative. RIGHT POPLITEAL VEIN: Negative. RIGHT CALF VEINS: Negative. LEFT COMMON FEMORAL VEIN: Negative. LEFT FEMORAL VEIN: Negative. LEFT POPLITEAL VEIN: Negative. LEFT CALF VEINS: Negative. ADDITIONAL FINDINGS: None. IMPRESSION: 1. No sonographic evidence for DVT in either lower extremity. Signer Name: Rodriguez Ro MD Signed: 11/16/2019 6:27 PM Workstation Name: [id number]
[2019-11-16] MEDS: METOPROLOL TARTRATE 25 MG TAB PO SCH (22:24)
[2019-11-16 23:51] LABS: Alanine Aminotransferase 13 units/L (7-56); Albumin 2.5 g/dL (3.9-5)
[2019-11-16 23:52] LABS: Bilirubin,Direct < 0.2 mg/dL (0-0.2)
[2019-11-17 02:32] LABS: Hematocrit 24.3 % (30.3-42.9); Hemoglobin 8.3 gm/dl (10.1-14.3); Mean Corpuscular HGB Conc 34 % (30-34); Mean Corpuscular Volume 85 fl (79-97); Red Blood Count 2.87 M/mm3 (3.65-5.03); Red Cell Distribution Width 17.4 % (13.2-15.2)
[2019-11-17 02:33] LABS: Platelet Count 72 K/mm3 (140-440)
[2019-11-17 02:39] LABS: Alanine Aminotransferase 12 units/L (7-56); Albumin 2.4 g/dL (3.9-5); Blood Urea Nitrogen 18 mg/dL (7-17); Calcium 7.4 mg/dL (8.4-10.2); Hemolysis Index 2
[2019-11-17 02:42] LABS: BUN/Creatinine Ratio 36
[2019-11-17 02:47] LABS: INR 1.15 (0.87-1.13)
[2019-11-17] MEDS: VANCOMYCIN/NS 1 GM/250 ML 1 GM/250 ML BAG IV SCH ×2 (03:15→15:23)
[2019-11-17 03:49] LABS: Basophils % (Manual) 0 % (0.0-1.8); Total Cells Counted 100
[2019-11-17 03:50] LABS: Anisocytosis Few; Burr Cells Rare; Platelet Estimate Consistent w Auto; Schistocytes Rare; Target Cells Rare
[2019-11-17] MEDS: CEFEPIME/NS 2 GM/100 ML 2 GM/100 ML BAG IV SCH ×3 (05:51→22:14)
[2019-11-17] MEDS: LORazepam 2 MG/ML VIAL IV PRN ×2 (06:55→22:14)
--- NOTE | 2019-11-17 09:01 | Gastroenterology Consultation ---
History of Present Illness - Reason for Consult Consult date: 11/17/19 cirrhosis Requesting physician: ALICIA JNAE - History of Present Illness The patient is a 59 yo female who presents with respiratory distress/sepsis, developed afib with rvr during hospitalization, gi consulted for h/o cirrhosis. pt awake/alert at time of exam, eating breakfast. denies gi complaints, tolerating po. h/o recreational drug use. reports history of hep c (etiology of cirrhosis per her understanding) and believes she was treated at [facility]. No jaundice, GI bleeding, overt HE, or ascites. Past History Past Medical History: other (POLY SUBSTANCE ABUSE. ) Past Surgical History: No surgical history Social history: smoking, IV drug use Family history: no significant family history Medications and Allergies Allergies Allergy/AdvReac Type Severity Reaction Status Date / Time Penicillins Allergy Anaphylaxis Verified 11/11/19 22:07 Home Medications Medication Instructions Recorded Confirmed Last Taken Type No Known Home Medications [No 11/15/19 11/15/19 Unknown History Reported Home Medications] Active Meds: Active Medications Acetaminophen (Tylenol) 650 mg PO Q4H PRN PRN Reason: Fever >101 Last Admin: 11/16/19 20:28 Dose: 650 mg Documented by: Dexamethasone (Decadron) 6 mg PO DAILY HUSSEIN Stop: 11/23/19 12:00 Last Admin: 11/16/19 09:35 Dose: 6 mg Documented by: Furosemide (Lasix) 40 mg IV QDAY [facility] Last Admin: 11/16/19 17:29 Dose: 40 mg Documented by: Cefepime HCl (Cefepime/Ns 2 Gm/100 Ml) 2 gm in 100 mls @ 200 mls/hr IV Q8HR [facility]; Protocol Last Admin: 11/17/19 05:51 Dose: 200 mls/hr Documented by: Vancomycin HCl (Vancomycin/Ns 1 Gm/250 Ml) 1 gm in 250 mls @ 166.667 mls/hr IV Q12H [facility] Last Admin: 11/17/19 03:15 Dose: 166.667 mls/hr Documented by: Lorazepam (Ativan) 1 mg IV Q4H PRN PRN Reason: Anxiety Last Admin: 11/17/19 06:55 Dose: 1 mg Documented by: Metoprolol Tartrate (Metoprolol) 25 mg PO BID [facility] Last Admin: 11/16/19 22:24 Dose: 25 mg Documented by: Reviewed/udpated patient's home and current meds Review of Systems - Review of Systems All systems: negative (per HPI) Exam - Constitutional Vital Signs: Temp Pulse Resp BP Pulse Ox 99.0 F 69 18 139/65 95 11/16/19 23:43 11/17/19 04:00 11/16/19 23:43 11/16/19 23:43 11/16/19 23:43 General appearance: no acute distress - EENT Eyes: PERRL, EOM intact - Respiratory Respiratory effort: normal Respiratory: bilateral: CTA - Cardiovascular Rhythm: regular Heart Sounds: Present: S1 & S2 Extremities: No edema - Gastrointestinal General gastrointestinal: Present: soft, non-tender, non-distended - Integumentary Integumentary: Present: clear, warm - Neurologic Neurological: alert and oriented x3 - Psychiatric Psychiatric: appropriate mood/affect - Labs CBC & Chem 7: 11/17/19 02:07 11/17/19 02:07 Lab Results: Laboratory Results - last 24 hr 11/16/19 11/16/19 11/17/19 23:06 Unknown 02:07 WBC 5.2 RBC 2.87 L Hgb 8.3 L Hct 24.3 L MCV 85 MCH 29 MCHC 34 RDW 17.4 H Plt Count 72 L Add Manual Diff Complete Total Counted 100 Seg Neuts % (Manual) 81.0 H Band Neutrophils % 0 Lymphocytes % (Manual) 13.0 L Reactive Lymphs % (Man) 0 Monocytes % (Manual) 5.0 Eosinophils % (Manual) 1.0 Basophils % (Manual) 0 Metamyelocytes % 0 Myelocytes % 0 Promyelocytes % 0 Blast Cells % 0 Nucleated RBC % Not Reportable Seg Neutrophils # Man 4.2 Band Neutrophils # 0.0 Lymphocytes # (Manual) 0.7 L Abs React Lymphs (Man) 0.0 Monocytes # (Manual) 0.3 Eosinophils # (Manual) 0.1 Basophils # (Manual) 0.0 Metamyelocytes # 0.0 Myelocytes # 0.0 Promyelocytes # 0.0 Blast Cells # 0.0 WBC Morphology Not Reportable Hypersegmented Neuts Not Reportable Hyposegmented Neuts Not Reportable Hypogranular Neuts Not Reportable Smudge Cells Not Reportable Toxic Granulation Not Reportable Toxic Vacuolation Not Reportable Dohle Bodies Not Reportable Pelger-Huet Anomaly Not Reportable Sherri Rods Not Reportable Platelet Estimate Consistent w auto Clumped Platelets Not Reportable Plt Clumps, EDTA Not Reportable Large Platelets Not Reportable Giant Platelets Not Reportable Platelet Satelliting Not Reportable Plt Morphology Comment Not Reportable RBC Morphology Not Reportable Dimorphic RBCs Not Reportable Polychromasia Not Reportable Hypochromasia Not Reportable Poikilocytosis Not Reportable Anisocytosis Few Microcytosis Not Reportable Macrocytosis Not Reportable Spherocytes Not Reportable Pappenheimer Bodies Not Reportable Sickle Cells Not Reportable Target Cells Rare Tear Drop Cells Not Reportable Ovalocytes Not Reportable Helmet Cells Not Reportable Harden-Saverton Bodies Not Reportable Jasper Rings Not Reportable Sterling Cells Rare Bite Cells Not Reportable Crenated Cell Not Reportable Elliptocytes Not Reportable Acanthocytes (Spur) Not Reportable Rouleaux Not Reportable Hemoglobin C Crystals Not Reportable Schistocytes Rare Malaria parasites Not Reportable Gallito Bodies Not Reportable Hem Pathologist Commnt No PT INR Sodium Potassium Chloride Carbon Dioxide Anion Gap BUN Creatinine Estimated GFR BUN/Creatinine Ratio Glucose Calcium Total Bilirubin 0.40 Direct Bilirubin < 0.2 Indirect Bilirubin 0.2 AST 16 ALT 13 Alkaline Phosphatase 108 Total Protein 5.7 L Albumin 2.5 L Albumin/Globulin Ratio 0.8 Coronavirus (PCR) Negative 11/17/19 11/17/19 02:07 02:07 WBC RBC Hgb Hct MCV MCH MCHC RDW Plt Count Add Manual Diff Total Counted Seg Neuts % (Manual) Band Neutrophils % Lymphocytes % (Manual) Reactive Lymphs % (Man) Monocytes % (Manual) Eosinophils % (Manual) Basophils % (Manual) Metamyelocytes % Myelocytes % Promyelocytes % Blast Cells % Nucleated RBC % Seg Neutrophils # Man Band Neutrophils # Lymphocytes # (Manual) Abs React Lymphs (Man) Monocytes # (Manual) Eosinophils # (Manual) Basophils # (Manual) Metamyelocytes # Myelocytes # Promyelocytes # Blast Cells # WBC Morphology Hypersegmented Neuts Hyposegmented Neuts Hypogranular Neuts Smudge Cells Toxic Granulation Toxic Vacuolation Dohle Bodies Pelger-Huet Anomaly Sherri Rods Platelet Estimate Clumped Platelets Plt Clumps, EDTA Large Platelets Giant Platelets Platelet Satelliting Plt Morphology Comment RBC Morphology Dimorphic RBCs Polychromasia Hypochromasia Poikilocytosis Anisocytosis Microcytosis Macrocytosis Spherocytes Pappenheimer Bodies Sickle Cells Target Cells Tear Drop Cells Ovalocytes Helmet Cells Harden-Saverton Bodies Jasper Rings Sterling Cells Bite Cells Crenated Cell Elliptocytes Acanthocytes (Spur) Rouleaux Hemoglobin C Crystals Schistocytes Malaria parasites Gallito Bodies Hem Pathologist Commnt PT 14.8 INR 1.15 H Sodium 137 Potassium 4.0 Chloride 105.6 Carbon Dioxide 19 L Anion Gap 16 BUN 18 H Creatinine 0.5 L Estimated GFR > 60 BUN/Creatinine Ratio 36 Glucose 166 H Calcium 7.4 L Total Bilirubin 0.40 Direct Bilirubin Indirect Bilirubin AST 17 ALT 12 Alkaline Phosphatase 106 Total Protein 6.0 L Albumin 2.4 L Albumin/Globulin Ratio 0.7 Coronavirus (PCR) Assessment and Plan 1. Cirrhosis 2. Sepsis 3. Afib 4. Respiratory failure pt with hep c cirrhosis; no signs of decompensation at this time. no inpt management from gi stand point at this time. will need to f/u with primary gi/hepatology after d/c for on going management. will sign off, please call as needed or with questions
--- NOTE | 2019-11-17 09:43 | Progress Note ---
Assessment and Plan 59 y/o female with bilateral lung infiltrates, bilateral pleural effusions and acute respiratory failure, concern for infectious etiology coupled with volume overload. 1. sTable on nasal cannula now, wean for sats >88% 2. Reviewed ID and Cardiology notes. 3. Diuresis goal should be daily net negative state. Appreciate Cards help 4. Official read is up for CTA, no PE 5. Can likely stop steroids given negative COVID testing but will defer to ID, believe they have high suspicion for disease. 6. Needs GI work up of cirrhosis, GI consulted. 7. Would also benefit from 2D echo to eval for pulmonary hypertension, cards awaiting negative COVID testing. 8. Will follow Subjective Date of service: 11/17/19 Principal diagnosis: Sepsis, Acute Resp Fail, AF RVR Interval history: No acute events. Coronavirus negative. Diuresis started on yesterday. I/O still show positive results. Objective Vital Signs - 12hr 11/16/19 11/16/19 11/17/19 22:00 23:43 04:00 Temperature 99.0 F Pulse Rate 72 69 Pulse Rate [ 87 Femoral] Respiratory 18 Rate Blood Pressure 139/65 O2 Sat by Pulse 95 95 Oximetry CBC and BMP: 11/17/19 02:07 11/17/19 02:07 ABG, PT/INR, D-dimer: ABG ABG pH 7.523 pH Units (7.350-7.450) H 11/15/19 04:10 ABG pCO2 25.8 mm Hg 11/15/19 04:10 ABG pO2 86.2 mm Hg (80.0-90.0) 11/15/19 04:10 ABG O2 Saturation 97.5 % (95.0-99.0) 11/15/19 04:10 PT/INR, D-dimer PT 14.8 Sec. (12.2-14.9) 11/17/19 02:07 INR 1.15 (0.87-1.13) H 11/17/19 02:07 D-Dimer 6966.37 ng/mlDDU (0-234) H 11/11/19 22:46 Abnormal lab findings: Abnormal Labs 11/11/19 11/11/19 11/11/19 22:46 22:46 22:46 WBC 4.0 L RBC 2.50 L Hgb 6.8 L Hct 20.3 L MCH 27 L RDW 16.9 H Plt Count 52 L Lymph % (Auto) 4.3 L Prentiss % (Auto) Lymph # 0.2 L Seg Neutrophils % 89.2 H Seg Neuts % (Manual) Lymphocytes % (Manual) Lymphocytes # (Manual) PT INR D-Dimer ABG pH ABG pO2 ABG O2 Saturation ABG Hemoglobin Oxyhemoglobin Sodium 133 L Potassium 3.2 L Chloride 94.6 L Carbon Dioxide BUN Creatinine Glucose 164 H Lactic Acid 3.00 H* Calcium 7.0 L Ferritin Alkaline Phosphatase 143 H Lactate Dehydrogenase C-Reactive Protein NT-Pro-B Natriuret Pep Total Protein 5.8 L Albumin 2.3 L Crossmatch 11/11/19 11/11/19 11/11/19 22:46 22:46 22:46 WBC RBC Hgb Hct MCH RDW Plt Count Lymph % (Auto) Prentiss % (Auto) Lymph # Seg Neutrophils % Seg Neuts % (Manual) Lymphocytes % (Manual) Lymphocytes # (Manual) PT 18.7 H INR 1.53 H D-Dimer 6966.37 H ABG pH ABG pO2 ABG O2 Saturation ABG Hemoglobin Oxyhemoglobin Sodium Potassium Chloride Carbon Dioxide BUN Creatinine Glucose 163 H Lactic Acid Calcium Ferritin 272.3 H Alkaline Phosphatase Lactate Dehydrogenase 193 H C-Reactive Protein 9.60 H NT-Pro-B Natriuret Pep Total Protein Albumin Crossmatch 11/11/19 11/12/19 11/12/19 23:52 05:12 06:42 WBC RBC 2.44 L Hgb 6.6 L 6.0 L Hct 20.2 L 17.7 L* MCH 27 L RDW 16.8 H Plt Count 49 L Lymph % (Auto) Prentiss % (Auto) Lymph # Seg Neutrophils % Seg Neuts % (Manual) Lymphocytes % (Manual) Lymphocytes # (Manual) PT INR D-Dimer ABG pH ABG pO2 ABG O2 Saturation ABG Hemoglobin Oxyhemoglobin Sodium Potassium Chloride Carbon Dioxide BUN Creatinine Glucose Lactic Acid 3.00 H* Calcium Ferritin Alkaline Phosphatase Lactate Dehydrogenase C-Reactive Protein NT-Pro-B Natriuret Pep Total Protein Albumin Crossmatch 11/12/19 11/12/19 11/13/19 06:43 19:37 00:31 WBC 3.3 L RBC 3.19 L Hgb 8.9 L 9.2 L Hct 26.6 L D 26.9 L MCH RDW 16.1 H Plt Count 60 L Lymph % (Auto) 11.6 L Prent[place] % (Auto) Lymph # 0.4 L Seg Neutrophils % 85.4 H Seg Neuts % (Manual) Lymphocytes % (Manual) Lymphocytes # (Manual) PT INR D-Dimer ABG pH ABG pO2 ABG O2 Saturation ABG Hemoglobin Oxyhemoglobin Sodium Potassium Chloride Carbon Dioxide BUN Creatinine Glucose Lactic Acid Calcium Ferritin Alkaline Phosphatase Lactate Dehydrogenase C-Reactive Protein NT-Pro-B Natriuret Pep Total Protein Albumin Crossmatch See Detail 11/13/19 11/14/19 11/14/19 00:31 08:49 10:14 WBC RBC Hgb Hct MCH RDW Plt Count Lymph % (Auto) Prentiss % (Auto) Lymph # Seg Neutrophils % Seg Neuts % (Manual) Lymphocytes % (Manual) Lymphocytes # (Manual) PT INR D-Dimer ABG pH 7.548 H ABG pO2 48.1 L ABG O2 Saturation 88.1 L ABG Hemoglobin 9.2 L Oxyhemoglobin 86.0 L Sodium Potassium Chloride Carbon Dioxide 21 L BUN Creatinine Glucose Lactic Acid Calcium 6.9 L Ferritin Alkaline Phosphatase 139 H Lactate Dehydrogenase C-Reactive Protein NT-Pro-B Natriuret Pep Total Protein 5.1 L Albumin 2.3 L 2.0 L Crossmatch 11/14/19 11/14/19 11/14/19 10:14 10:14 10:14 WBC RBC 3.04 L Hgb 8.6 L Hct 25.5 L MCH RDW 16.7 H Plt Count 50 L Lymph % (Auto) Prentiss % (Auto) 9.3 H Lymph # Seg Neutrophils % 82.6 H Seg Neuts % (Manual) 88.0 H Lymphocytes % (Manual) 6.0 L Lymphocytes # (Manual) 0.5 L PT INR D-Dimer ABG pH ABG pO2 ABG O2 Saturation ABG Hemoglobin Oxyhemoglobin Sodium Potassium 2.6 L* D Chloride Carbon Dioxide 18 L BUN Creatinine 0.5 L Glucose 111 H Lactic Acid Calcium 6.6 L Ferritin Alkaline Phosphatase 134 H Lactate Dehydrogenase C-Reactive Protein 9.80 H NT-Pro-B Natriuret Pep Total Protein 5.3 L Albumin 1.8 L Crossmatch 11/14/19 11/14/19 11/15/19 10:14 14:50 01:37 WBC RBC 2.82 L Hgb 8.0 L Hct 23.8 L MCH RDW 16.8 H Plt Count 52 L Lymph % (Auto) 12.2 L Prentiss % (Auto) Lymph # 0.7 L Seg Neutrophils % 83.3 H Seg Neuts % (Manual) Lymphocytes % (Manual) Lymphocytes # (Manual) PT INR D-Dimer ABG pH ABG pO2 ABG O2 Saturation ABG Hemoglobin Oxyhemoglobin Sodium Potassium Chloride Carbon Dioxide BUN Creatinine Glucose Lactic Acid Calcium Ferritin 250.2 H Alkaline Phosphatase Lactate Dehydrogenase 333 H C-Reactive Protein 10.00 H NT-Pro-B Natriuret Pep 34030 H Total Protein Albumin Crossmatch 11/15/19 11/15/19 11/16/19 01:37 04:10 01:53 WBC RBC 2.80 L Hgb 8.0 L Hct 23.7 L MCH RDW 17.5 H Plt Count 61 L Lymph % (Auto) 10.7 L Prentiss % (Auto) Lymph # 1.0 L Seg Neutrophils % 82.5 H Seg Neuts % (Manual) Lymphocytes % (Manual) Lymphocytes # (Manual) PT INR D-Dimer ABG pH 7.523 H ABG pO2 ABG O2 Saturation ABG Hemoglobin 7.9 L Oxyhemoglobin Sodium Potassium 3.5 L D Chloride 107.4 H Carbon Dioxide 19 L BUN Creatinine 0.5 L Glucose 178 H Lactic Acid Calcium 6.8 L Ferritin Alkaline Phosphatase Lactate Dehydrogenase C-Reactive Protein NT-Pro-B Natriuret Pep Total Protein 5.7 L Albumin 2.1 L Crossmatch 11/16/19 11/16/19 11/17/19 01:53 23:06 02:07 WBC RBC 2.87 L Hgb 8.3 L Hct 24.3 L MCH RDW 17.4 H Plt Count 72 L Lymph % (Auto) Prentiss % (Auto) Lymph # Seg Neutrophils % Seg Neuts % (Manual) 81.0 H Lymphocytes % (Manual) 13.0 L Lymphocytes # (Manual) 0.7 L PT INR D-Dimer ABG pH ABG pO2 ABG O2 Saturation ABG Hemoglobin Oxyhemoglobin Sodium Potassium Chloride 108.3 H Carbon Dioxide 19 L BUN Creatinine 0.5 L Glucose 118 H Lactic Acid Calcium 7.3 L Ferritin Alkaline Phosphatase Lactate Dehydrogenase C-Reactive Protein NT-Pro-B Natriuret Pep Total Protein 5.8 L 5.7 L Albumin 2.3 L 2.5 L Crossmatch 11/17/19 11/17/19 02:07 02:07 WBC RBC Hgb Hct MCH RDW Plt Count Lymph % (Auto) Prentiss % (Auto) Lymph # Seg Neutrophils % Seg Neuts % (Manual) Lymphocytes % (Manual) Lymphocytes # (Manual) PT INR 1.15 H D-Dimer ABG pH ABG pO2 ABG O2 Saturation ABG Hemoglobin Oxyhemoglobin Sodium Potassium Chloride Carbon Dioxide 19 L BUN 18 H Creatinine 0.5 L Glucose 166 H Lactic Acid Calcium 7.4 L Ferritin Alkaline Phosphatase Lactate Dehydrogenase C-Reactive Protein NT-Pro-B Natriuret Pep Total Protein 6.0 L Albumin 2.4 L Crossmatch
[2019-11-17] MEDS: METOPROLOL TARTRATE 25 MG TAB PO SCH ×2 (11:15→22:14)
[2019-11-17] MEDS: DEXAMETHASONE 4 MG TAB PO SCH (11:15)
[2019-11-17] MEDS: FUROSEMIDE 40 MG/4 ML INJ IV SCH (11:15)
--- NOTE | 2019-11-17 11:23 | Progress Note ---
Assessment and Plan COVID-19 testing NEGATIVE. tte reviewed - EF 40-45%, impaired relaxation, LA mod dilated, mild to mod MR. Pt currently in NSR on telemetry, HR 70s-80s. Cont PO lopressor. No systemic AC at this time in setting of severe anemia at presentation, thrombocytopenia, cirrhosis. Currently stable cardiac status. Nothing further to add from cardiac perspective at this time, will sign off. Recommend pt follow up in our office with Dr. ELBA Rueda within 2 weeks of discharge ([phone]). Pt seen in conjunction with Dr. Noemi Rueda who agrees with the assessment and plan of care. - Patient Problems (1) Acute respiratory failure with hypoxia Current Visit: Yes Status: Acute (2) PNA (pneumonia) Current Visit: Yes Status: Suspected (3) Atrial fibrillation with RVR Current Visit: Yes Status: Acute Plan to address problem: New onset (4) Hypokalemia Current Visit: Yes Status: Acute (5) Symptomatic anemia Current Visit: Yes Status: Acute Plan to address problem: S/p pRBCs (6) Thrombocytopenia Current Visit: Yes Status: Acute (7) Cirrhosis Current Visit: Yes Status: Acute (8) Polysubstance abuse Current Visit: Yes Status: Chronic Subjective Date of service: 11/17/19 Principal diagnosis: Sepsis, Acute Resp Fail, AF RVR Interval history: pt resting in bed, no current cardiac complaints, states she feels ready to go home. in SR on tele HR 70s, 3 beat run NSVT noted overnight. Objective Last Vital Signs Temp 99.0 F 11/16/19 23:43 Pulse 69 11/17/19 04:00 Resp 18 11/16/19 23:43 BP 139/65 11/16/19 23:43 Pulse Ox 95 11/16/19 23:43 - Physical Examination General: No Apparent Distress HEENT: Positive: PERRL, Normocephaly, Mucus Membranes Moist Neck: Positive: neck supple, trachea midline Cardiac: Positive: Reg Rate and Rhythm, S1/S2 Lungs: Positive: Decreased Breath Sounds Neuro: Positive: Grossly Intact Abdomen: Negative: Tender Skin: Negative: Rash Musculoskeletal: No Pain - Labs and Meds Cardiac Enzymes 11/16/19 11/17/19 Range/Units 23:06 02:07 AST 16 17 (5-40) units/L Coagulation 11/17/19 Range/Units 02:07 PT 14.8 (12.2-14.9) Sec. INR 1.15 H (0.87-1.13) CBC 11/17/19 Range/Units 02:07 WBC 5.2 (4.5-11.0) K/mm3 RBC 2.87 L (3.65-5.03) M/mm3 Hgb 8.3 L (10.1-14.3) gm/dl Hct 24.3 L (30.3-42.9) % Plt Count 72 L (140-440) K/mm3 Comprehensive Metabolic Panel 11/16/19 11/17/19 Range/Units 23:06 02:07 Sodium 137 (137-145) mmol/L Potassium 4.0 (3.6-5.0) mmol/L Chloride 105.6 (98-107) mmol/L Carbon Dioxide 19 L (22-30) mmol/L BUN 18 H (7-17) mg/dL Creatinine 0.5 L (0.6-1.2) mg/dL Glucose 166 H (65-100) mg/dL Calcium 7.4 L (8.4-10.2) mg/dL Direct Bilirubin < 0.2 (0-0.2) mg/dL Indirect Bilirubin 0.2 mg/dL AST 16 17 (5-40) units/L ALT 13 12 (7-56) units/L Alkaline Phosphatase 108 106 (35-129) units/L Total Protein 5.7 L 6.0 L (6.3-8.2) g/dL Albumin 2.5 L 2.4 L (3.9-5) g/dL - Imaging and Cardiology EKG: report reviewed, image reviewed Echo: report reviewed (10/2019: EF 40-45%, impaired relaxation, LA mod dilated, mild to mod MR. 11/2016 - EF 60%, mild-mod AI)
--- NOTE | 2019-11-17 15:15 | Progress Note ---
Assessment and Plan Cultures: Blood cx 11/11/2019 no growth so far. COVID-19 negative A/P: 59 yo female with history of polysubstance abuse including IV drug/meth admitted on 11/11/2019 due to fever and malaise for several weeks: #Severe Sepsis: with fever, tachycardia, pancytopenia, secondary pneumonia +/- severe anemia. Blood culture so far negative. UA neg. #Acute hypoxic respiratoy failuire: on 4L NC due to pneumonia r/o PE, very high ddimer Ddimer 6966. Noted elevated BNP ? component of heart failure. #Multifocal pneumonia: ? aspiration ? COVID-19 ?PJP. Initial CXR neg. Repeat CXR RML infiltrate. Repeat CXR multifocal pneumonia. It seems more bacterial given very high procal 5.1. COVID-19 markers very high - Ddimer 6966. CRP 9.6. LDH 193. #RVR Afib: triggered by sepsis #Pancytopenia: from sepsis, should r/o HIV-induced myelosuppression. Hg 6.8. S/p PRBC transfusion, r/o GI bleed #Polysubstance abuse: UDS +amph +opioids. #Acute encephalopathy: ? drug intoxication ?sepsis ?hepatic Recs: -F/u blood culture -Recommend repeat COVID-19 test, I have ordered. Normal procalcitonin raising concern for COVID-19 or other viral etiology. Also noted volume overload. -Obtain HIV, viral hepatitis, RPR -Obtain TTE -Continue cefepime 2 g iV q 12h and vancomycin with PK consult -Obtain MRSA PCR Wood Greenfield MD [facility], [place], [facility] ([facility] M: [phone] O: [phone] F: [phone] Subjective Date of service: 11/17/19 Principal diagnosis: Sepsis, Acute Resp Fail, AF RVR Interval history: Afebrile, normal white count. 4 L nasal cannula overnight. Objective - Exam Narrative Exam: Physical Exam: Constitutional: somnolent open eyes in mod resp distress on NC O2 4L Head, Ears, Nose: Normocephalic, atraumatic. Eyes: Conjunctivae/corneas clear. No icterus. No ptosis. Oral: limited Neck: Supple, no meningeal signs Cardiovascular: tachycardic Respiratory: crackles bilaterally GI: Soft, non-tender Musculoskeletal: no edema, deformities Skin: No rash or abscess Hem/Lymphatic: No palpable cervical or supraclavicular nodes. No lymphangitis Psych: somnolent Neurological:somnolent open eyes - Constitutional Vitals: Vital Signs Temp Pulse Resp BP Pulse Ox 98.9 F 73 24 116/47 95 11/17/19 12:31 11/17/19 12:31 11/17/19 12:31 11/17/19 12:31 11/17/19 12:31 Temperature -Last 24 Hours Temperature 98.9 F Temperature 99.0 F Temperature 97.7 F - Labs CBC & Chem 7: 11/17/19 02:07 11/17/19 02:07 Labs: Abnormal lab results 11/16/19 11/17/19 11/17/19 Range/Units 23:06 02:07 02:07 RBC 2.87 L (3.65-5.03) M/mm3 Hgb 8.3 L (10.1-14.3) gm/dl Hct 24.3 L (30.3-42.9) % RDW 17.4 H (13.2-15.2) % Plt Count 72 L (140-440) K/mm3 Seg Neuts % (Manual) 81.0 H (40.0-70.0) % Lymphocytes % (Manual) 13.0 L (13.4-35.0) % Lymphocytes # (Manual) 0.7 L (1.2-5.4) K/mm3 INR (0.87-1.13) Carbon Dioxide 19 L (22-30) mmol/L BUN 18 H (7-17) mg/dL Creatinine 0.5 L (0.6-1.2) mg/dL Glucose 166 H (65-100) mg/dL Calcium 7.4 L (8.4-10.2) mg/dL Total Protein 5.7 L 6.0 L (6.3-8.2) g/dL Albumin 2.5 L 2.4 L (3.9-5) g/dL 11/17/19 Range/Units 02:07 RBC (3.65-5.03) M/mm3 Hgb (10.1-14.3) gm/dl Hct (30.3-42.9) % RDW (13.2-15.2) % Plt Count (140-440) K/mm3 Seg Neuts % (Manual) (40.0-70.0) % Lymphocytes % (Manual) (13.4-35.0) % Lymphocytes # (Manual) (1.2-5.4) K/mm3 INR 1.15 H (0.87-1.13) Carbon Dioxide (22-30) mmol/L BUN (7-17) mg/dL Creatinine (0.6-1.2) mg/dL Glucose (65-100) mg/dL Calcium (8.4-10.2) mg/dL Total Protein (6.3-8.2) g/dL Albumin (3.9-5) g/dL
--- NOTE | 2019-11-17 16:03 | Progress Note ---
Assessment and Plan -- Acute hypoxemic respiratory failure Has bilateral pneumonia Patient continues to refuse COVID-19 test Patient started on dexamethasone 6 mg IV daily Patient is currently on broad-spectrum antibiotics ID on board -- Sepsis from b/l PNA Patient had a temperature 103 F 11/11. Urinalysis and chest x-ray - negative for any infection on admission Repeat chest x-ray showed worsening bilateral pneumonia Continues cefepime and vancomycin COVID-19 test negative ID recommendations appreciated -- Atrial fibrillation rate controlled Cardiology on board. Needs echocardiogram -- Anemia of CD Now status post transfusion of PRBCs Continue to monitor hemoglobin No evidence of GI bleed. -- Pancytopenia likely from liver disease Continue to monitor blood counts -- D-dimer, elevated Current Visit: Yes Status: Acute Plan to address problem: CTA chect shows no PE -- Hypokalemia Continue to monitor potassium. Potassium supplements as ordered -- Polysubstance abuse Drug abuse counseling Needs to have rehab program set up at discharge -- Cirrhosis Hepatitis panel ordered. GI consulted Needs follow up with GI for varices surviellance -- DVT prophylaxis Lovenox if platelets >50. SCDs -- Advance care planning PT recommended SNF brief History 59-year-old female with a medical history of drug abuse presenting to the hospital with chief complaint of fever and malaise for about 3 to 4 weeks prior to presentation. In the ED, her labs showed pancytopenia with Hb 6. She was admitted to the hospital and was transfused. 11/12. Patient seen and examined at bedside this morning. Had 103F last night. She is on ceftriaxone - will switch to cefepime and vancomycin for broader coverage. Will send procalcitonin, ESR, CRP, hep panel, TSH, Vitamin B12, folate, HIV etc. Patient refuses to have coronavirus test. 11/13. Overnight, patient had episode of atrial fibrillation with RVR with heart rate in the 150s up to 190s. Patient was started on Cardizem drip after giving metoprolol IV and transferred to the [facility]. patient was seen and examined at bedside today. Patient is tachypneic with respiratory rate in the 30s, tachycardic with heart rate in the 150s. She is on Cardizem drip 15mg/hr. Cardiology has been consulted this morning. Added digoxin due to elevated heart rate. Stat chest x-ray ordered showed worsening bilateral pneumonia. Patient is currently on vancomycin, cefepime. Added azithromycin for now. ID has been consulted. Stat ABG ordered to evaluate respiratory status. Results still pending. Ultrasound of the lower extremities ordered yesterday for elevated d-dimer still pending at this time. Will give patient Lovenox 60 mg twice daily for now. CTA chest ordered to rule out possible PE. PRoBNP ordered. 11/14. Patient seen and examined at bedside this morning. Patient is slightly better today. Her heart rate is better controlled. Cardiology is on board. Patient agrees to get a COVID-19 test-RN informed to get a test this morning. She is asking when she can go home. Labs reviewed - ProBNP elevated. Will need diuresis 11/15. She is still hypoxic. COVID-19 pending. lasix 40 mg daily ordered. Continue to monitor I/O. Cardiology on board. CT shows cirrhosis and splenomegaly. GI consulted for evaluation of liver cirrhosis. She has a history of IV drug abuse. 11/16: PT recommended SNF but patient refusing it. No family member available to receive the patient at home. 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 Subjective Date of service: 11/17/19 Principal diagnosis: Sepsis, Acute Resp Fail, AF RVR Interval history: Patient seen and examined. Medical records and medication list reviewed. No acute event overnight noted by the RN. Patient denies any chest pain or difficulty breathing. Patient is tolerating diet. Discussed plan of care at bedside with patient. Patient refusing SNF placement Objective - Exam Narrative Exam: General appearance: Present: no acute distress - EENT Eyes: Present: PERRL - Neck Neck: Present: supple - Respiratory Respiratory: bilateral: rales - Cardiovascular Rhythm: regular Heart Sounds: Present: S1 & S2 - Extremities Extremities: No edema - Abdominal General gastrointestinal: soft, non-tender, normal bowel sounds - Neurologic Neurologic: CNII-XII intact - Constitutional Vitals: Vital Signs - 12hr 11/17/19 11/17/19 12:31 15:19 Temperature 98.9 F Pulse Rate 73 Respiratory 24 Rate Blood Pressure 116/47 O2 Sat by Pulse 95 96 Oximetry - Labs CBC & Chem 7: 11/18/19 04:56 11/17/19 02:07 Labs: Abnormal lab results 11/16/19 11/17/19 11/17/19 Range/Units 23:06 02:07 02:07 RBC 2.87 L (3.65-5.03) M/mm3 Hgb 8.3 L (10.1-14.3) gm/dl Hct 24.3 L (30.3-42.9) % RDW 17.4 H (13.2-15.2) % Plt Count 72 L (140-440) K/mm3 Seg Neuts % (Manual) 81.0 H (40.0-70.0) % Lymphocytes % (Manual) 13.0 L (13.4-35.0) % Lymphocytes # (Manual) 0.7 L (1.2-5.4) K/mm3 INR (0.87-1.13) Carbon Dioxide 19 L (22-30) mmol/L BUN 18 H (7-17) mg/dL Creatinine 0.5 L (0.6-1.2) mg/dL Glucose 166 H (65-100) mg/dL Calcium 7.4 L (8.4-10.2) mg/dL Total Protein 5.7 L 6.0 L (6.3-8.2) g/dL Albumin 2.5 L 2.4 L (3.9-5) g/dL 11/17/19 Range/Units 02:07 RBC (3.65-5.03) M/mm3 Hgb (10.1-14.3) gm/dl Hct (30.3-42.9) % RDW (13.2-15.2) % Plt Count (140-440) K/mm3 Seg Neuts % (Manual) (40.0-70.0) % Lymphocytes % (Manual) (13.4-35.0) % Lymphocytes # (Manual) (1.2-5.4) K/mm3 INR 1.15 H (0.87-1.13) Carbon Dioxide (22-30) mmol/L BUN (7-17) mg/dL Creatinine (0.6-1.2) mg/dL Glucose (65-100) mg/dL Calcium (8.4-10.2) mg/dL Total Protein (6.3-8.2) g/dL Albumin (3.9-5) g/dL HEART Score - HEART Score Age: 45-65 Risk factors: No known risk factors Troponin: < normal limit - Critical Actions Critical Actions: 0-3 pts:0.9-1.7%risk of adverse cardiac event.Candidate for discharge
[2019-11-18] MEDS: VANCOMYCIN/NS 1 GM/250 ML 1 GM/250 ML BAG IV SCH ×2 (05:01→17:05)
[2019-11-18] MEDS: LORazepam 2 MG/ML VIAL IV PRN ×2 (05:05→23:12)
[2019-11-18] MEDS: CEFEPIME/NS 2 GM/100 ML 2 GM/100 ML BAG IV SCH ×3 (06:07→22:25)
[2019-11-18 06:11] LABS: Hematocrit 24.3 % (30.3-42.9); Hemoglobin 7.9 gm/dl (10.1-14.3); Mean Corpuscular HGB Conc 33 % (30-34); Mean Corpuscular Volume 88 fl (79-97); Red Blood Count 2.77 M/mm3 (3.65-5.03); Red Cell Distribution Width 17.8 % (13.2-15.2)
[2019-11-18 06:12] LABS: Platelet Count 90 K/mm3 (140-440)
[2019-11-18 06:17] LABS: Basophils % (Auto) 0.2 % (0.0-1.8); Eosinophils % (Auto) 0.1 % (0.0-4.3); Lymphocytes # (Auto) 1.1 K/mm3 (1.2-5.4); Lymphocytes % (Auto) 20.3 % (13.4-35.0); Monocytes # (Auto) 0.5 K/mm3 (0.0-0.8)
--- NOTE | 2019-11-18 07:36 | Progress Note ---
Assessment and Plan 59 y/o female with bilateral lung infiltrates, bilateral pleural effusions and acute respiratory failure, concern for infectious etiology coupled with volume overload. 1. sTable on nasal cannula now, wean for sats >88% 2. Reviewed ID and Cardiology notes. 3. Would consider restarting at least oral diuretic therapy. may help wean ox ygen. Especially with patient refusing to go to SNF 4. Can likely stop steroids given negative COVID testing but will defer to ID, believe they have high suspicion for disease. 5. Cirrohsis work up as outpatient 6. Systolic heart failure with diastolic dysfunction as well. Please see number 3. 7. Suggest walk test prior to discharge to determine oxygen needs with exertion/exercise. Subjective Date of service: 11/18/19 Principal diagnosis: Sepsis, Acute Resp Fail, AF RVR Interval history: NO acute events. Remains positive from a fluid balance standpoint. Sats good on 4 liters NC Objective Vital Signs - 12hr 11/17/19 11/17/19 11/18/19 22:00 22:01 05:36 Temperature 99.0 F 98.8 F Pulse Rate 73 67 Pulse Rate [ 73 Femoral] Respiratory 16 16 16 Rate Blood Pressure 127/54 104/42 O2 Sat by Pulse 96 96 93 Oximetry CBC and BMP: 11/18/19 04:56 11/17/19 02:07 ABG, PT/INR, D-dimer: ABG ABG pH 7.523 pH Units (7.350-7.450) H 11/15/19 04:10 ABG pCO2 25.8 mm Hg 11/15/19 04:10 ABG pO2 86.2 mm Hg (80.0-90.0) 11/15/19 04:10 ABG O2 Saturation 97.5 % (95.0-99.0) 11/15/19 04:10 PT/INR, D-dimer PT 14.8 Sec. (12.2-14.9) 11/17/19 02:07 INR 1.15 (0.87-1.13) H 11/17/19 02:07 D-Dimer 6966.37 ng/mlDDU (0-234) H 11/11/19 22:46 Abnormal lab findings: Abnormal Labs 11/11/19 11/11/19 11/11/19 22:46 22:46 22:46 WBC 4.0 L RBC 2.50 L Hgb 6.8 L Hct 20.3 L MCH 27 L RDW 16.9 H Plt Count 52 L Lymph % (Auto) 4.3 L [place] % (Auto) Lymph # 0.2 L Seg Neutrophils % 89.2 H Seg Neuts % (Manual) Lymphocytes % (Manual) Lymphocytes # (Manual) PT INR D-Dimer ABG pH ABG pO2 ABG O2 Saturation ABG Hemoglobin Oxyhemoglobin Sodium 133 L Potassium 3.2 L Chloride 94.6 L Carbon Dioxide BUN Creatinine Glucose 164 H Lactic Acid 3.00 H* Calcium 7.0 L Ferritin Alkaline Phosphatase 143 H Lactate Dehydrogenase C-Reactive Protein NT-Pro-B Natriuret Pep Total Protein 5.8 L Albumin 2.3 L Crossmatch 11/11/19 11/11/19 11/11/19 22:46 22:46 22:46 WBC RBC Hgb Hct MCH RDW Plt Count Lymph % (Auto) [place] % (Auto) Lymph # Seg Neutrophils % Seg Neuts % (Manual) Lymphocytes % (Manual) Lymphocytes # (Manual) PT 18.7 H INR 1.53 H D-Dimer 6966.37 H ABG pH ABG pO2 ABG O2 Saturation ABG Hemoglobin Oxyhemoglobin Sodium Potassium Chloride Carbon Dioxide BUN Creatinine Glucose 163 H Lactic Acid Calcium Ferritin 272.3 H Alkaline Phosphatase Lactate Dehydrogenase 193 H C-Reactive Protein 9.60 H NT-Pro-B Natriuret Pep Total Protein Albumin Crossmatch 11/11/19 11/12/19 11/12/19 23:52 05:12 06:42 WBC RBC 2.44 L Hgb 6.6 L 6.0 L Hct 20.2 L 17.7 L* MCH 27 L RDW 16.8 H Plt Count 49 L Lymph % (Auto) [place] % (Auto) Lymph # Seg Neutrophils % Seg Neuts % (Manual) Lymphocytes % (Manual) Lymphocytes # (Manual) PT INR D-Dimer ABG pH ABG pO2 ABG O2 Saturation ABG Hemoglobin Oxyhemoglobin Sodium Potassium Chloride Carbon Dioxide BUN Creatinine Glucose Lactic Acid 3.00 H* Calcium Ferritin Alkaline Phosphatase Lactate Dehydrogenase C-Reactive Protein NT-Pro-B Natriuret Pep Total Protein Albumin Crossmatch 11/12/19 11/12/19 11/13/19 06:43 19:37 00:31 WBC 3.3 L RBC 3.19 L Hgb 8.9 L 9.2 L Hct 26.6 L D 26.9 L MCH RDW 16.1 H Plt Count 60 L Lymph % (Auto) 11.6 L [place] % (Auto) Lymph # 0.4 L Seg Neutrophils % 85.4 H Seg Neuts % (Manual) Lymphocytes % (Manual) Lymphocytes # (Manual) PT INR D-Dimer ABG pH ABG pO2 ABG O2 Saturation ABG Hemoglobin Oxyhemoglobin Sodium Potassium Chloride Carbon Dioxide BUN Creatinine Glucose Lactic Acid Calcium Ferritin Alkaline Phosphatase Lactate Dehydrogenase C-Reactive Protein NT-Pro-B Natriuret Pep Total Protein Albumin Crossmatch See Detail 11/13/19 11/14/19 11/14/19 00:31 08:49 10:14 WBC RBC Hgb Hct MCH RDW Plt Count Lymph % (Auto) [place] % (Auto) Lymph # Seg Neutrophils % Seg Neuts % (Manual) Lymphocytes % (Manual) Lymphocytes # (Manual) PT INR D-Dimer ABG pH 7.548 H ABG pO2 48.1 L ABG O2 Saturation 88.1 L ABG Hemoglobin 9.2 L Oxyhemoglobin 86.0 L Sodium Potassium Chloride Carbon Dioxide 21 L BUN Creatinine Glucose Lactic Acid Calcium 6.9 L Ferritin Alkaline Phosphatase 139 H Lactate Dehydrogenase C-Reactive Protein NT-Pro-B Natriuret Pep Total Protein 5.1 L Albumin 2.3 L 2.0 L Crossmatch 11/14/19 11/14/19 11/14/19 10:14 10:14 10:14 WBC RBC 3.04 L Hgb 8.6 L Hct 25.5 L MCH RDW 16.7 H Plt Count 50 L Lymph % (Auto) [place] % (Auto) 9.3 H Lymph # Seg Neutrophils % 82.6 H Seg Neuts % (Manual) 88.0 H Lymphocytes % (Manual) 6.0 L Lymphocytes # (Manual) 0.5 L PT INR D-Dimer ABG pH ABG pO2 ABG O2 Saturation ABG Hemoglobin Oxyhemoglobin Sodium Potassium 2.6 L* D Chloride Carbon Dioxide 18 L BUN Creatinine 0.5 L Glucose 111 H Lactic Acid Calcium 6.6 L Ferritin Alkaline Phosphatase 134 H Lactate Dehydrogenase C-Reactive Protein 9.80 H NT-Pro-B Natriuret Pep Total Protein 5.3 L Albumin 1.8 L Crossmatch 11/14/19 11/14/19 11/15/19 10:14 14:50 01:37 WBC RBC 2.82 L Hgb 8.0 L Hct 23.8 L MCH RDW 16.8 H Plt Count 52 L Lymph % (Auto) 12.2 L [place] % (Auto) Lymph # 0.7 L Seg Neutrophils % 83.3 H Seg Neuts % (Manual) Lymphocytes % (Manual) Lymphocytes # (Manual) PT INR D-Dimer ABG pH ABG pO2 ABG O2 Saturation ABG Hemoglobin Oxyhemoglobin Sodium Potassium Chloride Carbon Dioxide BUN Creatinine Glucose Lactic Acid Calcium Ferritin 250.2 H Alkaline Phosphatase Lactate Dehydrogenase 333 H C-Reactive Protein 10.00 H NT-Pro-B Natriuret Pep 31648 H Total Protein Albumin Crossmatch 11/15/19 11/15/19 11/16/19 01:37 04:10 01:53 WBC RBC 2.80 L Hgb 8.0 L Hct 23.7 L MCH RDW 17.5 H Plt Count 61 L Lymph % (Auto) 10.7 L [place] % (Auto) Lymph # 1.0 L Seg Neutrophils % 82.5 H Seg Neuts % (Manual) Lymphocytes % (Manual) Lymphocytes # (Manual) PT INR D-Dimer ABG pH 7.523 H ABG pO2 ABG O2 Saturation ABG Hemoglobin 7.9 L Oxyhemoglobin Sodium Potassium 3.5 L D Chloride 107.4 H Carbon Dioxide 19 L BUN Creatinine 0.5 L Glucose 178 H Lactic Acid Calcium 6.8 L Ferritin Alkaline Phosphatase Lactate Dehydrogenase C-Reactive Protein NT-Pro-B Natriuret Pep Total Protein 5.7 L Albumin 2.1 L Crossmatch 11/16/19 11/16/19 11/17/19 01:53 23:06 02:07 WBC RBC 2.87 L Hgb 8.3 L Hct 24.3 L MCH RDW 17.4 H Plt Count 72 L Lymph % (Auto) [place] % (Auto) Lymph # Seg Neutrophils % Seg Neuts % (Manual) 81.0 H Lymphocytes % (Manual) 13.0 L Lymphocytes # (Manual) 0.7 L PT INR D-Dimer ABG pH ABG pO2 ABG O2 Saturation ABG Hemoglobin Oxyhemoglobin Sodium Potassium Chloride 108.3 H Carbon Dioxide 19 L BUN Creatinine 0.5 L Glucose 118 H Lactic Acid Calcium 7.3 L Ferritin Alkaline Phosphatase Lactate Dehydrogenase C-Reactive Protein NT-Pro-B Natriuret Pep Total Protein 5.8 L 5.7 L Albumin 2.3 L 2.5 L Crossmatch 11/17/19 11/17/19 11/18/19 02:07 02:07 04:56 WBC RBC 2.77 L Hgb 7.9 L Hct 24.3 L MCH RDW 17.8 H Plt Count 90 L Lymph % (Auto) [place] % (Auto) 9.0 H Lymph # 1.1 L Seg Neutrophils % 70.4 H Seg Neuts % (Manual) Lymphocytes % (Manual) Lymphocytes # (Manual) PT INR 1.15 H D-Dimer ABG pH ABG pO2 ABG O2 Saturation ABG Hemoglobin Oxyhemoglobin Sodium Potassium Chloride Carbon Dioxide 19 L BUN 18 H Creatinine 0.5 L Glucose 166 H Lactic Acid Calcium 7.4 L Ferritin Alkaline Phosphatase Lactate Dehydrogenase C-Reactive Protein NT-Pro-B Natriuret Pep Total Protein 6.0 L Albumin 2.4 L Crossmatch
[2019-11-18] MEDS: DEXAMETHASONE 4 MG TAB PO SCH (10:51)
[2019-11-18] MEDS: METOPROLOL TARTRATE 25 MG TAB PO SCH ×2 (10:53→22:25)
--- NOTE | 2019-11-18 14:34 | Progress Note ---
Assessment and Plan Cultures: Blood cx 11/11/2019 no growth so far. COVID-19 negative A/P: 59 yo female with history of polysubstance abuse including IV drug/meth admitted on 11/11/2019 due to fever and malaise for several weeks: #Severe Sepsis: with fever, tachycardia, pancytopenia, secondary pneumonia +/- severe anemia. Blood culture so far negative. UA neg. #Acute hypoxic respiratoy failuire: on 4L NC due to pneumonia r/o PE, very high ddimer Ddimer 6966. Noted elevated BNP ? component of heart failure. #Multifocal pneumonia: ? aspiration ? COVID-19 ?PJP. Initial CXR neg. Repeat CXR RML infiltrate. Repeat CXR multifocal pneumonia. It seems more bacterial given very high procal 5.1. COVID-19 markers very high - Ddimer 6966. CRP 9.6. LDH 193. #RVR Afib: triggered by sepsis #Pancytopenia: from sepsis, should r/o HIV-induced myelosuppression. Hg 6.8. S/p PRBC transfusion, r/o GI bleed #Polysubstance abuse: UDS +amph +opioids. #Acute encephalopathy: ? drug intoxication ?sepsis ?hepatic Recs: -F/u blood culture -Procalcitonin is elevated, continue empiric antibiotics. Complete 7 days. -Obtain HIV, viral hepatitis, RPR -Obtain TTE -Continue cefepime 2 g iV q 12h and vancomycin with PK consult -Obtain MRSA PCR Wood Greenfield MD [facility] ([facility] M: [phone] O: [phone] F: [phone] Subjective Date of service: 11/18/19 Principal diagnosis: Sepsis, Acute Resp Fail, AF RVR Interval history: Afebrile, normal white count. Procalcitonin is elevated. Objective - Exam Narrative Exam: Physical Exam: Constitutional: somnolent open eyes in mod resp distress on NC O2 4L Head, Ears, Nose: Normocephalic, atraumatic. Eyes: Conjunctivae/corneas clear. No icterus. No ptosis. Oral: limited Neck: Supple, no meningeal signs Cardiovascular: tachycardic Respiratory: crackles bilaterally GI: Soft, non-tender Musculoskeletal: no edema, deformities Skin: No rash or abscess Hem/Lymphatic: No palpable cervical or supraclavicular nodes. No lymphangitis Psych: somnolent Neurological:somnolent open eyes - Constitutional Vitals: Vital Signs Temp Pulse Resp BP Pulse Ox 98.8 F 78 16 104/42 93 11/18/19 05:36 11/18/19 12:44 11/18/19 05:36 11/18/19 05:36 11/18/19 05:36 Temperature -Last 24 Hours Temperature 98.8 F Temperature 99.0 F Temperature 98.3 F - Labs CBC & Chem 7: 11/18/19 04:56 11/17/19 02:07 Labs: Abnormal lab results 11/18/19 Range/Units 04:56 RBC 2.77 L (3.65-5.03) M/mm3 Hgb 7.9 L (10.1-14.3) gm/dl Hct 24.3 L (30.3-42.9) % RDW 17.8 H (13.2-15.2) % Plt Count 90 L (140-440) K/mm3 [place] % (Auto) 9.0 H (0.0-7.3) % Lymph # 1.1 L (1.2-5.4) K/mm3 Seg Neutrophils % 70.4 H (40.0-70.0) %
--- NOTE | 2019-11-18 18:31 | Progress Note ---
Assessment and Plan -- Acute hypoxemic respiratory failure Has bilateral pneumonia, negative for covid Patient is currently on broad-spectrum antibiotics ID on board -- Sepsis from b/l PNA Patient had a temperature 103 F 11/11. Urinalysis and chest x-ray - negative for any infection on admission Repeat chest x-ray showed worsening bilateral pneumonia Continue cefepime and vancomycin COVID-19 test negative ID recommendations appreciated -- Atrial fibrillation rate controlled Cardiology on board. echocardiogram showed ef of 40-45% --Systolic CHF, chronic, compensated Ef 40-45%, cardiology following -- Anemia of CD Now status post transfusion of PRBCs Continue to monitor hemoglobin No evidence of GI bleed. -- Pancytopenia likely from liver disease Continue to monitor blood counts -- D-dimer, elevated Current Visit: Yes Status: Acute Plan to address problem: CTA chect shows no PE -- Hypokalemia Continue to monitor potassium. Potassium supplements as ordered -- Polysubstance abuse Drug abuse counseling Needs to have rehab program set up at discharge -- Cirrhosis Hepatitis panel ordered. GI consulted Needs follow up with GI for varices surviellance -- DVT prophylaxis Lovenox if platelets >50. SCDs -- Advance care planning PT recommended SNF brief History 59-year-old female with a medical history of drug abuse presenting to the hospital with chief complaint of fever and malaise for about 3 to 4 weeks prior to presentation. In the ED, her labs showed pancytopenia with Hb 6. She was admi tted to the hospital and was transfused. 11/12. Patient seen and examined at bedside this morning. Had 103F last night. She is on ceftriaxone - will switch to cefepime and vancomycin for broader cove rage. Will send procalcitonin, ESR, CRP, hep panel, TSH, Vitamin B12, folate, HIV etc. Patient refuses to have coronavirus test. 11/13. Overnight, patient had episode of atrial fibrillation with RVR with heart rate in the 150s up to 190s. Patient was started on Cardizem drip after giving metoprolol IV and transferred to the [facility]. patient was seen and examined at bedside today. Patient is tachypneic with respiratory rate in the 30s, tachycardic with heart rate in the 150s. She is on Cardizem drip 15mg/hr. Cardiology has been consulted this morning. Added digoxin due to elevated heart rate. Stat chest x-ray ordered showed worsening bilateral pneumonia. Patient is currently on vancomycin, cefepime. Added azithromycin for now. ID has been consulted. Stat ABG ordered to evaluate respiratory status. Results still pending. Ultrasound of the lower extremities ordered yesterday for elevated d- dimer still pending at this time. Will give patient Lovenox 60 mg twice daily for now. CTA chest ordered to rule out possible PE. PRoBNP ordered. 11/14. Patient seen and examined at bedside this morning. Patient is slightly better today. Her heart rate is better controlled. Cardiology is on board. Patient agrees to get a COVID-19 test-RN informed to get a test this morning. She is asking when she can go home. Labs reviewed - ProBNP elevated. Will need diuresis 11/15. She is still hypoxic. COVID-19 pending. lasix 40 mg daily ordered. Continue to monitor I/O. Cardiology on board. CT shows cirrhosis and splenomegaly. GI consulted for evaluation of liver cirrhosis. She has a history of IV drug abuse. 11/16: PT recommended SNF but patient refusing it. No family member available to receive the patient at home. pilot manager working on placement. negative for covid 11/17: 2d echo showed Ef 40-45%, cont abx for PNA. patient has no access story to go to home. CM working on discharge Subjective Date of service: 11/18/19 Principal diagnosis: Sepsis, Acute Resp Fail, AF RVR Interval history: Patient seen and examined. Medical records and medication list reviewed. No acute event overnight noted by the RN. Patient denies any chest pain or difficulty breathing. Patient is tolerating diet. Discussed plan of care at bedside with patient. Patient refusing SNF placement Objective - Exam Narrative Exam: General appearance: Present: no acute distress - EENT Eyes: Present: PERRL - Neck Neck: Present: supple - Respiratory Respiratory: bilateral: rales - Cardiovascular Rhythm: regular Heart Sounds: Present: S1 & S2 - Extremities Extremities: No edema - Abdominal General gastrointestinal: soft, non-tender, normal bowel sounds - Neurologic Neurologic: CNII-XII intact - Constitutional Vitals: Vital Signs - 12hr 11/18/19 11/18/19 11/18/19 10:53 11:47 12:44 Temperature Pulse Rate 78 Pulse Rate [ 74 78 Femoral] Respiratory Rate Blood Pressure O2 Sat by Pulse Oximetry 11/18/19 16:08 Temperature 100.0 F H Pulse Rate 73 Pulse Rate [ Femoral] Respiratory 18 Rate Blood Pressure 129/53 O2 Sat by Pulse 95 Oximetry - Labs CBC & Chem 7: 11/18/19 04:56 11/17/19 02:07 Labs: Abnormal lab results 11/18/19 Range/Units 04:56 RBC 2.77 L (3.65-5.03) M/mm3 Hgb 7.9 L (10.1-14.3) gm/dl Hct 24.3 L (30.3-42.9) % RDW 17.8 H (13.2-15.2) % Plt Count 90 L (140-440) K/mm3 [place] % (Auto) 9.0 H (0.0-7.3) % Lymph # 1.1 L (1.2-5.4) K/mm3 Seg Neutrophils % 70.4 H (40.0-70.0) % HEART Score - HEART Score Age: 45-65 Risk factors: No known risk factors Troponin: < normal limit - Critical Actions Critical Actions: 0-3 pts:0.9-1.7%risk of adverse cardiac event.Candidate for discharge
--- NOTE | 2019-11-18 21:38 | Ultrasound Report ---
US abdomen complete INDICATION: Looking for source of infection COMPARISON: None. FINDINGS: Pancreas: Not well-visualized. Abdominal aorta: Normal. IVC: Normal. Liver: Pneumobilia is seen within the left hepatic lobe.. Gallbladder: There is air seen within the gallbladder. Bile ducts: Normal. The common bile duct measures mm. Kidneys: Normal. Spleen: Enlarged measuring 7 cm.. There is no free fluid in the abdomen. IMPRESSION: Pneumobilia is present. Otherwise, no significant sonographic abnormality. Signer Name: Manuel Edmondson MD Signed: 11/18/2019 9:33 PM Workstation Name: [id number]
[2019-11-19] MEDS: VANCOMYCIN/NS 1 GM/250 ML 1 GM/250 ML BAG IV SCH (04:45)
[2019-11-19] MEDS: LORazepam 2 MG/ML VIAL IV PRN (06:23)
[2019-11-19] MEDS: CEFEPIME/NS 2 GM/100 ML 2 GM/100 ML BAG IV SCH (06:24)
--- NOTE | 2019-11-19 08:27 | Progress Note ---
Assessment and Plan 59 y/o female with bilateral lung infiltrates, bilateral pleural effusions and acute respiratory failure, concern for infectious etiology coupled with volume overload. No new recs for today, please see below. 1. sTable on nasal cannula now, wean for sats >88% 2. Reviewed ID and Cardiology notes. 3. Would consider restarting at least oral diuretic therapy. may help wean oxygen. Especially with patient refusing to go to SNF 4. Can likely stop steroids given negative COVID testing but will defer to ID, believe they have high suspicion for disease. 5. Cirrohsis work up as outpatient 6. Systolic heart failure with diastolic dysfunction as well. Please see number 3. 7. Suggest walk test prior to discharge to determine oxygen needs with exertion/exercise. Subjective Date of service: 11/19/19 Principal diagnosis: Sepsis, Acute Resp Fail, AF RVR Interval history: Remains on 4 liters NC. Grossly positive the last several days. Still not on diuretic therapy. Still on steroids. Objective Vital Signs - 12hr 11/18/19 11/18/19 11/18/19 21:29 22:00 22:25 Temperature 98.6 F Pulse Rate 64 73 Pulse Rate [ 73 Femoral] Respiratory 16 18 Rate Blood Pressure 127/47 129/73 O2 Sat by Pulse 97 96 Oximetry 11/19/19 05:05 Temperature 98.8 F Pulse Rate 67 Pulse Rate [ Femoral] Respiratory 16 Rate Blood Pressure 104/40 O2 Sat by Pulse 96 Oximetry CBC and BMP: 11/18/19 04:56 11/17/19 02:07 ABG, PT/INR, D-dimer: ABG ABG pH 7.523 pH Units (7.350-7.450) H 11/15/19 04:10 ABG pCO2 25.8 mm Hg 11/15/19 04:10 ABG pO2 86.2 mm Hg (80.0-90.0) 11/15/19 04:10 ABG O2 Saturation 97.5 % (95.0-99.0) 11/15/19 04:10 PT/INR, D-dimer PT 14.8 Sec. (12.2-14.9) 11/17/19 02:07 INR 1.15 (0.87-1.13) H 11/17/19 02:07 D-Dimer 6966.37 ng/mlDDU (0-234) H 11/11/19 22:46 Abnormal lab findings: Abnormal Labs 11/11/19 11/11/19 11/11/19 22:46 22:46 22:46 WBC 4.0 L RBC 2.50 L Hgb 6.8 L Hct 20.3 L MCH 27 L RDW 16.9 H Plt Count 52 L Lymph % (Auto) 4.3 L [place] % (Auto) Lymph # 0.2 L Seg Neutrophils % 89.2 H Seg Neuts % (Manual) Lymphocytes % (Manual) Lymphocytes # (Manual) PT INR D-Dimer ABG pH ABG pO2 ABG O2 Saturation ABG Hemoglobin Oxyhemoglobin Sodium 133 L Potassium 3.2 L Chloride 94.6 L Carbon Dioxide BUN Creatinine Glucose 164 H Lactic Acid 3.00 H* Calcium 7.0 L Ferritin Alkaline Phosphatase 143 H Lactate Dehydrogenase C-Reactive Protein NT-Pro-B Natriuret Pep Total Protein 5.8 L Albumin 2.3 L Crossmatch 11/11/19 11/11/19 11/11/19 22:46 22:46 22:46 WBC RBC Hgb Hct MCH RDW Plt Count Lymph % (Auto) [place] % (Auto) Lymph # Seg Neutrophils % Seg Neuts % (Manual) Lymphocytes % (Manual) Lymphocytes # (Manual) PT 18.7 H INR 1.53 H D-Dimer 6966.37 H ABG pH ABG pO2 ABG O2 Saturation ABG Hemoglobin Oxyhemoglobin Sodium Potassium Chloride Carbon Dioxide BUN Creatinine Glucose 163 H Lactic Acid Calcium Ferritin 272.3 H Alkaline Phosphatase Lactate Dehydrogenase 193 H C-Reactive Protein 9.60 H NT-Pro-B Natriuret Pep Total Protein Albumin Crossmatch 11/11/19 11/12/19 11/12/19 23:52 05:12 06:42 WBC RBC 2.44 L Hgb 6.6 L 6.0 L Hct 20.2 L 17.7 L* MCH 27 L RDW 16.8 H Plt Count 49 L Lymph % (Auto) [place] % (Auto) Lymph # Seg Neutrophils % Seg Neuts % (Manual) Lymphocytes % (Manual) Lymphocytes # (Manual) PT INR D-Dimer ABG pH ABG pO2 ABG O2 Saturation ABG Hemoglobin Oxyhemoglobin Sodium Potassium Chloride Carbon Dioxide BUN Creatinine Glucose Lactic Acid 3.00 H* Calcium Ferritin Alkaline Phosphatase Lactate Dehydrogenase C-Reactive Protein NT-Pro-B Natriuret Pep Total Protein Albumin Crossmatch 11/12/19 11/12/19 11/13/19 06:43 19:37 00:31 WBC 3.3 L RBC 3.19 L Hgb 8.9 L 9.2 L Hct 26.6 L D 26.9 L MCH RDW 16.1 H Plt Count 60 L Lymph % (Auto) 11.6 L [place] % (Auto) Lymph # 0.4 L Seg Neutrophils % 85.4 H Seg Neuts % (Manual) Lymphocytes % (Manual) Lymphocytes # (Manual) PT INR D-Dimer ABG pH ABG pO2 ABG O2 Saturation ABG Hemoglobin Oxyhemoglobin Sodium Potassium Chloride Carbon Dioxide BUN Creatinine Glucose Lactic Acid Calcium Ferritin Alkaline Phosphatase Lactate Dehydrogenase C-Reactive Protein NT-Pro-B Natriuret Pep Total Protein Albumin Crossmatch See Detail 11/13/19 11/14/19 11/14/19 00:31 08:49 10:14 WBC RBC Hgb Hct MCH RDW Plt Count Lymph % (Auto) [place] % (Auto) Lymph # Seg Neutrophils % Seg Neuts % (Manual) Lymphocytes % (Manual) Lymphocytes # (Manual) PT INR D-Dimer ABG pH 7.548 H ABG pO2 48.1 L ABG O2 Saturation 88.1 L ABG Hemoglobin 9.2 L Oxyhemoglobin 86.0 L Sodium Potassium Chloride Carbon Dioxide 21 L BUN Creatinine Glucose Lactic Acid Calcium 6.9 L Ferritin Alkaline Phosphatase 139 H Lactate Dehydrogenase C-Reactive Protein NT-Pro-B Natriuret Pep Total Protein 5.1 L Albumin 2.3 L 2.0 L Crossmatch 11/14/19 11/14/19 11/14/19 10:14 10:14 10:14 WBC RBC 3.04 L Hgb 8.6 L Hct 25.5 L MCH RDW 16.7 H Plt Count 50 L Lymph % (Auto) [place] % (Auto) 9.3 H Lymph # Seg Neutrophils % 82.6 H Seg Neuts % (Manual) 88.0 H Lymphocytes % (Manual) 6.0 L Lymphocytes # (Manual) 0.5 L PT INR D-Dimer ABG pH ABG pO2 ABG O2 Saturation ABG Hemoglobin Oxyhemoglobin Sodium Potassium 2.6 L* D Chloride Carbon Dioxide 18 L BUN Creatinine 0.5 L Glucose 111 H Lactic Acid Calcium 6.6 L Ferritin Alkaline Phosphatase 134 H Lactate Dehydrogenase C-Reactive Protein 9.80 H NT-Pro-B Natriuret Pep Total Protein 5.3 L Albumin 1.8 L Crossmatch 11/14/19 11/14/19 11/15/19 10:14 14:50 01:37 WBC RBC 2.82 L Hgb 8.0 L Hct 23.8 L MCH RDW 16.8 H Plt Count 52 L Lymph % (Auto) 12.2 L [place] % (Auto) Lymph # 0.7 L Seg Neutrophils % 83.3 H Seg Neuts % (Manual) Lymphocytes % (Manual) Lymphocytes # (Manual) PT INR D-Dimer ABG pH ABG pO2 ABG O2 Saturation ABG Hemoglobin Oxyhemoglobin Sodium Potassium Chloride Carbon Dioxide BUN Creatinine Glucose Lactic Acid Calcium Ferritin 250.2 H Alkaline Phosphatase Lactate Dehydrogenase 333 H C-Reactive Protein 10.00 H NT-Pro-B Natriuret Pep 25006 H Total Protein Albumin Crossmatch 11/15/19 11/15/19 11/16/19 01:37 04:10 01:53 WBC RBC 2.80 L Hgb 8.0 L Hct 23.7 L MCH RDW 17.5 H Plt Count 61 L Lymph % (Auto) 10.7 L [place] % (Auto) Lymph # 1.0 L Seg Neutrophils % 82.5 H Seg Neuts % (Manual) Lymphocytes % (Manual) Lymphocytes # (Manual) PT INR D-Dimer ABG pH 7.523 H ABG pO2 ABG O2 Saturation ABG Hemoglobin 7.9 L Oxyhemoglobin Sodium Potassium 3.5 L D Chloride 107.4 H Carbon Dioxide 19 L BUN Creatinine 0.5 L Glucose 178 H Lactic Acid Calcium 6.8 L Ferritin Alkaline Phosphatase Lactate Dehydrogenase C-Reactive Protein NT-Pro-B Natriuret Pep Total Protein 5.7 L Albumin 2.1 L Crossmatch 11/16/19 11/16/19 11/17/19 01:53 23:06 02:07 WBC RBC 2.87 L Hgb 8.3 L Hct 24.3 L MCH RDW 17.4 H Plt Count 72 L Lymph % (Auto) [place] % (Auto) Lymph # Seg Neutrophils % Seg Neuts % (Manual) 81.0 H Lymphocytes % (Manual) 13.0 L Lymphocytes # (Manual) 0.7 L PT INR D-Dimer ABG pH ABG pO2 ABG O2 Saturation ABG Hemoglobin Oxyhemoglobin Sodium Potassium Chloride 108.3 H Carbon Dioxide 19 L BUN Creatinine 0.5 L Glucose 118 H Lactic Acid Calcium 7.3 L Ferritin Alkaline Phosphatase Lactate Dehydrogenase C-Reactive Protein NT-Pro-B Natriuret Pep Total Protein 5.8 L 5.7 L Albumin 2.3 L 2.5 L Crossmatch 11/17/19 11/17/19 11/18/19 02:07 02:07 04:56 WBC RBC 2.77 L Hgb 7.9 L Hct 24.3 L MCH RDW 17.8 H Plt Count 90 L Lymph % (Auto) [place] % (Auto) 9.0 H Lymph # 1.1 L Seg Neutrophils % 70.4 H Seg Neuts % (Manual) Lymphocytes % (Manual) Lymphocytes # (Manual) PT INR 1.15 H D-Dimer ABG pH ABG pO2 ABG O2 Saturation ABG Hemoglobin Oxyhemoglobin Sodium Potassium Chloride Carbon Dioxide 19 L BUN 18 H Creatinine 0.5 L Glucose 166 H Lactic Acid Calcium 7.4 L Ferritin Alkaline Phosphatase Lactate Dehydrogenase C-Reactive Protein NT-Pro-B Natriuret Pep Total Protein 6.0 L Albumin 2.4 L Crossmatch
[2019-11-19] MEDS ORDERED: FUROSEMIDE 40 MG TAB PO SCH (10:00)
[2019-11-19] MEDS: DEXAMETHASONE 4 MG TAB PO SCH (10:41)
[2019-11-19] MEDS: METOPROLOL TARTRATE 25 MG TAB PO SCH (10:41)
[2019-11-19 13:37] VITALS: BP 106/46
--- NOTE | 2019-11-19 13:57 | Progress Note ---
Assessment and Plan Cultures: Blood cx 11/11/2019 no growth so far. COVID-19 negative A/P: 59 yo female with history of polysubstance abuse including IV drug/meth admitted on 11/11/2019 due to fever and malaise for several weeks: #Severe Sepsis: with fever, tachycardia, pancytopenia, secondary pneumonia +/- severe anemia. Blood culture so far negative. UA neg. #Acute hypoxic respiratoy failuire: on 4L NC due to pneumonia r/o PE, very high ddimer Ddimer 6966. Noted elevated BNP ? component of heart failure. #Multifocal pneumonia: ? aspiration ? COVID-19 ?PJP. Initial CXR neg. Repeat CXR RML infiltrate. Repeat CXR multifocal pneumonia. It seems more bacterial given very high procal 5.1. COVID-19 markers very high - Ddimer 6966. CRP 9.6. LDH 193. #RVR Afib: triggered by sepsis #Pancytopenia: from sepsis, should r/o HIV-induced myelosuppression. Hg 6.8. S/p PRBC transfusion, r/o GI bleed #Polysubstance abuse: UDS +amph +opioids. #Acute encephalopathy: ? drug intoxication ?sepsis ?hepatic Recs: -F/u blood culture -Procalcitonin is elevated, continue empiric antibiotics. Complete 7 days. -Obtain HIV, viral hepatitis, RPR -Obtain TTE -Continue cefepime 2 g iV q 12h and vancomycin with PK consult -Obtain MRSA PCR Wood Greenfield MD [facility] ([facility] M: [phone] O: [phone] F: [phone] Subjective Date of service: 11/19/19 Principal diagnosis: Sepsis, Acute Resp Fail, AF RVR Interval history: Afebrile, normal white count. 4L NC Objective - Exam Narrative Exam: Physical Exam: Constitutional: somnolent open eyes in mod resp distress on NC O2 4L Head, Ears, Nose: Normocephalic, atraumatic. Eyes: Conjunctivae/corneas clear. No icterus. No ptosis. Oral: limited Neck: Supple, no meningeal signs Cardiovascular: tachycardic Respiratory: crackles bilaterally GI: Soft, non-tender Musculoskeletal: no edema, deformities Skin: No rash or abscess Hem/Lymphatic: No palpable cervical or supraclavicular nodes. No lymphangitis Psych: somnolent Neurological:somnolent open eyes - Constitutional Vitals: Vital Signs Temp Pulse Resp BP Pulse Ox 99.0 F 73 20 106/46 95 11/19/19 11:52 11/19/19 11:52 11/19/19 11:52 11/19/19 11:52 11/19/19 11:52 Temperature -Last 24 Hours Temperature 99.0 F Temperature 98.8 F Temperature 98.6 F Temperature 100.0 F - Labs CBC & Chem 7: 11/18/19 04:56 11/17/19 02:07
--- NOTE | 2019-11-19 16:35 | Discharge Summary ---
Providers - Providers Date of Admission: 11/13/19 14:54 Date of discharge: 11/19/19 Attending physician: JENNIFER ALLRED 11/14/19 06:46 Consult to Physician [CONS] Routine Comment: Consulting Provider: JOMAR JIMENEZ Physician Instructions: Reason For Exam: AFIB WITH RVR 11/14/19 11:35 Consult to Physician [CONS] Routine Comment: Consulting Provider: GORGE YUAN Physician Instructions: Reason For Exam: Worsening pneumonia 11/14/19 14:28 Consult to Physician [CONS] Routine Comment: Consulting Provider: DANIELLE UDPREE Physician Instructions: Reason For Exam: Respiratory failure 11/16/19 10:39 Physical Therapy Evaluation and Treat [CONS] Routine Comment: Reason For Exam: For ambulation 11/16/19 14:04 Consult to Physician [CONS] Routine Comment: Consulting Provider: DWAIN POLANCO Physician Instructions: Reason For Exam: liver cirrhosis 11/18/19 10:56 Occupational Therapy Evaluate and Treat [CONS] Stat Comment: Reason For Exam: requested by Brittany / PT 11/18/19 19:07 Consult to Wound/ET Nurse [CONS] Routine Reason For Exam: wound eval Primary care physician: MERCHANDISE CARRIER Hospitalization Condition: Stable Hospital course: 59-year-old female with a medical history of drug abuse presenting to the hospital with chief complaint of fever and malaise for about 3 to 4 weeks prior to presentation. In the ED, her labs showed pancytopenia with Hb 6. She was admitted to the hospital and was transfused 2units of PRBC. Started on abx for b/l PNA. COVID 19 was negative. Daily course: 11/12. Patient seen and examined at bedside this morning. Had 103F last night. She is on ceftriaxone - will switch to cefepime and vancomycin for broader coverage. Will send procalcitonin, ESR, CRP, hep panel, TSH, Vitamin B12, folate, HIV etc. Patient refuses to have coronavirus test. 11/13. Overnight, patient had episode of atrial fibrillation with RVR with heart rate in the 150s up to 190s. Patient was started on Cardizem drip after giving metoprolol IV and transferred to the [facility]. patient was seen and examined at bedside today. Patient is tachypneic with respiratory rate in the 30s, tachycardic with heart rate in the 150s. She is on Cardizem drip 15mg/hr. Cardiology has been consulted this morning. Added digoxin due to elevated heart rate. Stat chest x-ray ordered showed worsening bilateral pneumonia. Patient is currently on vancomycin, cefepime. Added azithromycin for now. ID has been consulted. Stat ABG ordered to evaluate respiratory status. Results still pending. Ultrasound of the lower extremities ordered yesterday for elevated d- dimer still pending at this time. Will give patient Lovenox 60 mg twice daily for now. CTA chest ordered to rule out possible PE. PRoBNP ordered. 11/14. Patient seen and examined at bedside this morning. Patient is slightly better today. Her heart rate is better controlled. Cardiology is on board. Patient agrees to get a COVID-19 test-RN informed to get a test this morning. She is asking when she can go home. Labs reviewed - ProBNP elevated. Will need diuresis 11/15. She is still hypoxic. COVID-19 pending. lasix 40 mg daily ordered. Continue to monitor I/O. Cardiology on board. CT shows cirrhosis and splenomegaly. GI consulted for evaluation of liver cirrhosis. She has a history of IV drug abuse. 11/16: PT recommended SNF but patient refusing it. No family member available to receive the patient at home. 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 negative for covid 19. saturtaing >94 on RA 11/17: 2d echo showed Ef 40-45%, cont abx for PNA. patient has no access story to go to home. CM working on discharge 11/18: Patient refused SNF. Discharged home with HH. Discharge Diagnosis: -- Acute hypoxemic respiratory failure due to bilateral pneumonia, negative for covid treated with broad-spectrum antibiotics -- Sepsis from b/l PNA Patient had a temperature 103 F 11/11. Urinalysis and chest x-ray - negative for any infection on admission Repeat chest x-ray showed worsening bilateral pneumonia treated with cefepime and vancomycin COVID-19 test negative ID recommendations appreciated -- Atrial fibrillation rate controlled, Cardiology on board. echocardiogram showed ef of 40-45% No systemic AC at this time in setting of severe anemia at presentation, thrombocytopenia, cirrhosis continue aspirin daily --Systolic CHF, chronic, compensated Ef 40-45%, need further outpt f/u -- Anemia of CD status post transfusion of 2 units of PRBCs No evidence of active GI bleed. -- Pancytopenia likely from liver disease, stable -- D-dimer, elevated CTA chect shows no PE -- Hypokalemia Continue to monitor potassium. Potassium supplements as ordered -- Polysubstance abuse Drug abuse counseling Needs to have rehab program set up at discharge -- Cirrhosis Hepatitis panel ordered. GI consulted Needs follow up with GI for varices surviellance -- DVT prophylaxis Lovenox if platelets >50. SCDs -- Advance care planning PT recommended SNF, but patient refused Disposition: DC-01 TO HOME OR SELFCARE Time spent for discharge: 34 minutes Core Measure Documentation - Palliative Care Palliative Care/ Comfort Measures: Not Applicable - Core Measures Any of the following diagnoses?: heart failure - Heart Failure Discharge Requirements ELODIA/ARB for LVSD if EF <40%: Not Applicable Beta angelica at discharge: Yes Exam - Physical Exam Narrative exam: General appearance: Present: no acute distress - EENT Eyes: Present: PERRL - Neck Neck: Present: supple - Respiratory Respiratory: bilateral: rales - Cardiovascular Rhythm: regular Heart Sounds: Present: S1 & S2 - Extremities Extremities: No edema - Abdominal General gastrointestinal: soft, non-tender, normal bowel sounds - Neurologic Neurologic: CNII-XII intact - Constitutional Vitals: Temp Pulse Resp BP Pulse Ox 99.0 F 73 20 106/46 95 11/19/19 11:52 11/19/19 11:52 11/19/19 11:52 11/19/19 11:52 11/19/19 16:01 Plan Activity: advance as tolerated Weight Bearing Status: Non-Weight Bearing Diet: low fat, low salt Special Instructions: record daily BP diary, other (abstinance from substance abuse) Follow up with: PRIMARY CARE, [Primary Care Provider] - 3-5 Days Prescriptions: Aspirin EC [Halfprin EC] 81 mg PO QDAY #30 tablet. Potassium Chloride [K-Dur] 10 meq PO QDAY #30 tablet Furosemide [Lasix TAB] 40 mg PO QDAY #30 tablet Metoprolol [Lopressor TAB] 25 mg PO BID #60 tablet
== END 2019-11-19 18:35 | disposition home or self-care (01) | DRG 871 ==
LOC: ED 21:35 → 4A 11-12 00:51 → 3A 11-12 01:45 → 4A 11-12 01:45 → 3A 11-12 02:51 → OBSVTOIN 11-13 14:54 → IMCU 11-14 06:49 → 3A 11-15 19:12 → UNDODISIN 11-19 16:17
PROVIDERS: ADMIT Internal Medicine; ATTEND Internal Medicine
PROC: 30233N1 Transfusion of Nonautologous Red Blood Cells into Peripheral Vein, Percutaneous Approach (ICD-10-PCS; principal; 2019-11-12)
DX: A41.9 Sepsis, unspecified organism (principal); J18.9 Pneumonia, unspecified organism; J96.01 Acute respiratory failure with hypoxia; G93.40 Encephalopathy, unspecified; D61.818 Other pancytopenia; E87.6 Hypokalemia; R79.1 Abnormal coagulation profile; I48.20 Chronic atrial fibrillation, unspecified; R65.20 Severe sepsis without septic shock; F15.10 Other stimulant abuse, uncomplicated; F11.10 Opioid abuse, uncomplicated; J90 Pleural effusion, not elsewhere classified; E87.70 Fluid overload, unspecified; K74.60 Unspecified cirrhosis of liver; Z88.0 Allergy status to penicillin; Z99.3 Dependence on wheelchair; F17.200 Nicotine dependence, unspecified, uncomplicated
CPT/HCPCS: 36415; 36600; 71045; 71275; 76700; 80053; 80076; 80202; 80307; 81001; 82140; 82607; 82728; 82747; 82803; 82947; 83615; 83880; 84145; 84439; 84443; 85007; 85014; 85018; 85025; 85027; 85379; 85610; 85652; 86140; 86850; 86900; 86901; 86920; 87040; 93005; 93306; 93970; 94760; G0378; J0456; J0692; J0696; J1100; J1160; J1650; J1940; J2060; J2270; J3370; J3480; J7030; J7040; J7050; J8540; P9016; Q9967; U0003-CS